=== PATIENT | female | born 1985 | race Caucasian/White ===

== ENCOUNTER 2017-11-25 22:15 | Emergency (ER) | payer OTHER ==
[2017-11-25 22:27] VITALS: BP 123/84; PULSE 83; RESP 18; TEMP 98.1
--- NOTE | 2017-11-25 22:53 | XR ---
EXAMINATION TYPE: XR ankle complete RT DATE OF EXAM: 11/25/2017 COMPARISON: NONE HISTORY: Foot and ankle pain TECHNIQUE: 3 views FINDINGS: I see no fracture nor dislocation. Ankle mortise is anatomic. Joint spaces are normal. IMPRESSION: There is a small plantar calcaneal spur. Otherwise negative right ankle exam..
--- NOTE | 2017-11-25 22:54 | XR ---
EXAMINATION TYPE: XR foot complete RT DATE OF EXAM: 11/25/2017 COMPARISON: NONE HISTORY: Foot pain TECHNIQUE: 3 views FINDINGS: I see no fracture nor dislocation. Metatarsals are intact. There are no erosions. Joint spa sonja are normal. There is a small plantar calcaneal spur. IMPRESSION: Mild calcaneal spurring. No fracture. No sign of inflammatory arthritis.
--- NOTE | 2017-11-25 23:26 | ED ---
Lower Extremity Injury HPI - General Chief Complaint: Extremity Injury, Lower Stated Complaint: Foot injury Time Seen by Provider: 11/25/17 23:11 Source: patient Mode of arrival: wheelchair Limitations: no limitations - History of Present Illness Initial Comments: 32-year-old female patient presents to the emergency department today for evaluation of right ankle pain and swelling. Patient states that she rolled it 1 she was on the treadmill yesterday. States that she was seen and evaluated at [facility] last evening, did have an x-ray and was told she had an ankle sprain no fracture. She states that today she is wearing her splint but is having significant pain with ambulation. States whenever she attempts to walk she can feel a popping in the right lateral aspect of the ankle. She denies any numbness or tingling to the foot. She denies any falls or other injuries. Patient denies any headache, neck pain, back pain, chest pain , shortness of breath, dizziness, weakness, abdominal pain, nausea, vomiting, or difficulties with bowel movements or urination. - Related Data Home Medications Medication Instructions Recorded Confirmed Ibuprofen [Motrin] 800 mg PO Q6HR PRN 05/17/15 11/25/17 Acetaminophen Tab [Tylenol Tab] 650 mg PO Q6H PRN 11/25/17 11/25/17 Clopidogrel [Plavix] 75 mg PO DAILY 11/25/17 11/25/17 Levothyroxine Sodium [Synthroid] 300 mcg PO DAILY 11/25/17 11/25/17 QUEtiapine [SEROquel] 25 mg PO HS 11/25/17 11/25/17 Ranitidine HCl [Zantac] 150 mg PO BID 11/25/17 11/25/17 Sulfamethox-Tmp 800-160Mg [Bactrim 1 tab PO BID 11/25/17 11/25/17 DS 800-160 mg] Previous Rx's Medication Instructions Recorded Acetaminophen-Codeine 300-30mg 1 tab PO Q6H PRN #6 tablet 11/25/17 [Tylenol #3] Ibuprofen [Motrin] 600 mg PO Q8HR PRN #30 tab 11/25/17 Allergies Allergy/AdvReac Type Severity Reaction Status Date / Time cortisone Allergy Unknown Verified 11/25/17 23:23 Penicillins Allergy Unknown Verified 02/23/18 23:23 Review of Systems ROS Statement: Those systems with pertinent positive or pertinent negative responses have been documented in the HPI. ROS Other: All systems not noted in ROS Statement are negative. Past Medical History Past Medical History: Hypertension, Thyroid Disorder Additional Past Medical History / Comment(s): depression History of Any Multi-Drug Resistant Organisms: None Reported Past Surgical History: No Surgical Hx Reported Past Psychological History: Anxiety, Depression Smoking Status: Former smoker Past Alcohol Use History: None Reported Past Drug Use History: None Reported General Exam Limitations: no limitations General appearance: alert, in no apparent distress, other (This is a well- developed, well-nourished adult female patient in no acute distress. Vital signs upon presentation are temperature 98.1F, pulse 83, respirations 18, blood pressure 123/84, pulse ox 98% on room air.) Eye exam: Present: normal appearance, PERRL, EOMI. Absent: scleral icterus, conjunctival injection, periorbital swelling Respiratory exam: Present: normal lung sounds bilaterally. Absent: respiratory distress, wheezes, rales, rhonchi, stridor Cardiovascular Exam: Present: regular rate, normal rhythm, normal heart sounds. Absent: systolic murmur, diastolic murmur, rubs, gallop, clicks Extremities exam: Present: full ROM, tenderness (Tenderness over the right lateral ankle and over the fifth metatarsal), normal capillary refill, other ( Mild soft tissue swelling surrounding the right ankle, skin is otherwise pink, warm, and dry. Cap refills less than 3 seconds.). Absent: normal inspection, pedal edema, joint swelling, calf tenderness Neurological exam: Present: alert, oriented X3, CN II-XII intact Psychiatric exam: Present: normal affect, normal mood Skin exam: Present: warm, dry, intact, normal color. Absent: rash Course Vital Signs 11/25/17 22:23 Temperature 98.1 F Pulse Rate 83 Respiratory 18 Rate Blood Pressure 123/84 O2 Sat by Pulse 98 Oximetry Medical Decision Making - Medical Decision Making 32-year-old female patient presented to the emergency department today for evaluation of right ankle pain and swelling. Physical examination did reveal mild swelling surrounding the right ankle. Patient did have full range of motion but complained of increased pain with movement. Neurovascular status was intact. Distal pulses were intact. X-rays were reviewed and were negative for any acute fractures or dislocations. I did discuss with her that she most likely has an ankle sprain. I discussed using splinting, anti-inflammatories, rest, and ice. She is instructed to have repeat x-ray performed in 7-10 days if her symptoms are persistent. She is instructed to return here immediately for any new, worsening, or concerning symptoms per she verbalizes understanding and agrees with this plan. - Radiology Data Radiology results: report reviewed, image reviewed 3 views of the right foot showed no fracture nor dislocation. Metatarsals are intact. No erosions. Joint spaces are normal. There is a small plantar calcaneal spur. Impression by Dr. Pike shows mild calcaneal spurring. No fracture. No sign of inflammatory arthritis. Three-view x-ray of the ankle shows no fracture nor dislocation. Ankle mortise is anatomic. Joint spaces are normal. There is small plantar calcaneal spur. Otherwise negative right ankle exam. Disposition Clinical Impression: Right ankle sprain Disposition: HOME SELF-CARE Condition: Good Instructions: Ankle Sprain (ED) Additional Instructions: Rest, ice, and elevate the right lower extremity. Follow-up with orthopedics if his symptoms aren't improving over the next 7-10 days. Return here immediately for any new, worsening, or concerning symptoms. Prescriptions: Acetaminophen-Codeine 300-30mg [Tylenol #3] 1 tab PO Q6H PRN #6 tablet PRN Reason: Pain Ibuprofen [Motrin] 600 mg PO Q8HR PRN #30 tab PRN Reason: Pain Referrals: Danya Araujo DO [Primary Care Provider] - 1-2 days Time of Disposition: 23:26
== END 2017-11-25 23:38 | disposition home or self-care (01) ==
LOC: EC 22:15
DX: S93.401A Sprain of unspecified ligament of right ankle, initial encounter (principal); E07.9 Disorder of thyroid, unspecified; F32.9 Major depressive disorder, single episode, unspecified; I10 Essential (primary) hypertension; Z87.891 Personal history of nicotine dependence; Z88.0 Allergy status to penicillin; Z88.8 Allergy status to other drugs, medicaments and biological substances; Z79.02 Long term (current) use of antithrombotics/antiplatelets; Z79.899 Other long term (current) drug therapy; X50.9XXA Other and unspecified overexertion or strenuous movements or postures, initial encounter; Y92.89 Other specified places as the place of occurrence of the external cause
CPT/HCPCS: 99283

== ENCOUNTER → 2018-04-27 | Outpatient (CLI) | payer OTHER ==
--- NOTE | 2018-04-27 22:55 | MR ---
EXAMINATION TYPE: MR lumbar spine wo con DATE OF EXAM: 04/27/2018 COMPARISON: MRI lumbar spine December 16, 2009 HISTORY: Low back pain per order, pain into right lower extremity for a few years per patient TECHNIQUE: Multiplanar, multisequence imaging of the lumbar spine is performed without IV contrast. FINDINGS: Sagittal images of the lumbar spine redemonstrates vertebral body heights and alignment to appear satisfactory. There is persistent disc desiccation L4-L5 and L5-S1 levels . The intervertebral discs otherwise redemonstrate normal heights and hydration. Small posterior disc herniation redemon strated at L5-S1 level on sagittal images. The conus medullaris remains normal in position and signal ending mid L1 level. The bone marrow signal intensity is within normal limits. No significant spurr ing is present. Axial images show at T12-L1, L1-L2, L2-L3, and L3-L4 levels all to remain within normal limits. Axial images at the L4-L5 level show broad disc protrusion minimally effacing anterior thecal sac, bi lateral neural foramina are patent. No significant change from prior. Mild facet arthropathy bilatera lly is redemonstrated. Axial images at L5-S1 level shows tiny central disc protrusion but spinal canal is preserved and bila teral neural foramina are patent. No significant change from prior. No suspicious retroperitoneal fin dings are seen. IMPRESSION: Mild degenerative changes lower lumbar spine without significant change from prior MRI 20 10 or significant disc herniation to account for right-sided radiculopathy type symptoms.
== END | disposition home or self-care (01) ==
LOC: RADMRIMAIN 21:02
PROVIDERS: ATTEND Psychiatry & Neurology Neurology
DX: M47.816 Spondylosis without myelopathy or radiculopathy, lumbar region (principal); Z88.0 Allergy status to penicillin; Z88.5 Allergy status to narcotic agent; Z88.8 Allergy status to other drugs, medicaments and biological substances
CPT/HCPCS: 72148

== ENCOUNTER 2018-04-28 22:52 | Inpatient (IN) | payer OTHER ==
--- NOTE | 2018-04-29 00:21 | XR ---
EXAMINATION TYPE: XR chest 2V DATE OF EXAM: 04/29/2018 COMPARISON: 10/31/2009 HISTORY: Rib pain TECHNIQUE: Frontal and lateral views of the chest are obtained. FINDINGS: There is no heart failure nor confluent pneumonic infiltrate. Costophrenic angles are haezl r. Bony thorax is intact. IMPRESSION: No active cardiopulmonary disease. No change.
[2018-04-29] MEDS ORDERED: SODIUM CHLORIDE 0.9% 1,000 ML IV STA (00:31)
[2018-04-29] MEDS ORDERED: KETOROLAC 30 MG/ML 1 ML VIAL IVP STA (00:31)
[2018-04-29 00:52] LABS: Basophils % (A) 0 %; Eosinophils # (A) 0.5 k/uL (0-0.7); Eosinophils % (A) 5 %; HCT 38.5 % (34.0-46.0); HGB 12.8 gm/dL (11.4-16.0); Lymphocytes # (A) 3.2 k/uL (1.0-4.8); Lymphocytes % (A) 31 %; MCH 28.8 pg (25.0-35.0); MCHC 33.3 g/dL (31.0-37.0); MCV 86.4 fL (80.0-100.0); Mean Platelet Volume 6.9; Monocytes # (A) 0.6 k/uL (0-1.0); Monocytes % (A) 5 %; Neutrophils # (A) 5.9 k/uL (1.3-7.7); Neutrophils % (A) 57 %; Platelet Count 262 k/uL (150-450); RBC 4.46 m/uL (3.80-5.40); RDW 12.4 % (11.5-15.5); WBC 10.3 k/uL (3.8-10.6)
--- NOTE | 2018-04-29 00:55 | ED ---
General Adult HPI - General Chief complaint: Shortness of Breath Stated complaint: SOB Time Seen by Provider: 04/28/18 23:33 Source: patient Mode of arrival: ambulatory - History of Present Illness Initial comments: 32-year-old female patient presents to the emergency department today for evaluation of bilateral lower rib pain. Patient states his been going on for the last 3 days and has been getting worse. Patient denies any injuries or increase in physical activity. Denies any shortness of breath with this but states it does hurt worse when she takes deep breaths. She denies any radiation of the pain to her back. She describes the pain as an intense aching pain. She denies any nausea, vomiting, cough, diarrhea, constipation, sweats, fever, or chills. Patient denies any history of similar symptoms. Patient has past medical history significant for CVA and cholecystectomy. Patient denies any recent rash, back pain, numbness, tingling, dizziness, weakness, hematuria, dysuria, urinary urgency, urinary frequency, headache, visual changes, or any other complaints. - Related Data Home Medications Medication Instructions Recorded Confirmed Albuterol Inhaler [Ventolin Hfa 1 puff PO RT-Q6H PRN 04/28/18 04/28/18 Inhaler] Atorvastatin [Lipitor] 10 mg PO HS 04/28/18 04/28/18 Baclofen [Lioresal] 10 mg PO BID 04/28/18 04/28/18 Gabapentin [Neurontin] 100 mg PO HS 04/28/18 04/28/18 Gabapentin [Neurontin] 300 - 600 mg PO BID 04/28/18 04/28/18 Naproxen [Naprosyn] 500 mg PO Q12HR PRN 04/28/18 04/28/18 busPIRone HCl [Buspar] 10 mg PO DAILY 04/28/18 04/28/18 Allergies Allergy/AdvReac Type Severity Reaction Status Date / Time cortisone Allergy Unknown Verified 04/28/18 23:28 hydrocortisone Allergy Rash/Hives Verified 04/28/18 23:28 Penicillins Allergy Unknown Verified 04/28/18 23:28 Review of Systems ROS Statement: Those systems with pertinent positive or pertinent negative responses have been documented in the HPI. ROS Other: All systems not noted in ROS Statement are negative. Past Medical History Past Medical History: Hyperlipidemia, Hypertension, Thyroid Disorder Additional Past Medical History / Comment(s): depression History of Any Multi-Drug Resistant Organisms: None Reported Past Surgical History: Cholecystectomy Additional Past Surgical History / Comment(s): Breast reduction Past Psychological History: Anxiety, Depression Smoking Status: Former smoker Past Alcohol Use History: Occasional Past Drug Use History: None Reported General Exam General appearance: alert, in no apparent distress, other (Physical well- developed, well-nourished adult female patient in no acute distress. Vital signs upon presentation are temperature 98.3F, pulse 66, respiration 16, blood pressure 148/92, pulse ox 100% on room air.) Eye exam: Present: normal appearance, PERRL, EOMI. Absent: scleral icterus, conjunctival injection, periorbital swelling ENT exam: Present: normal exam, normal oropharynx, mucous membranes moist Respiratory exam: Present: normal lung sounds bilaterally. Absent: respiratory distress, wheezes, rales, rhonchi, stridor Cardiovascular Exam: Present: regular rate, normal rhythm, normal heart sounds. Absent: systolic murmur, diastolic murmur, rubs, gallop, clicks GI/Abdominal exam: Present: soft, tenderness (Midepigastric tenderness), normal bowel sounds. Absent: distended, guarding, rebound, rigid Back exam: Absent: CVA tenderness (R), CVA tenderness (L) Neurological exam: Present: alert, oriented X3, CN II-XII intact Psychiatric exam: Present: normal affect, normal mood Skin exam: Present: warm, dry, intact, normal color. Absent: rash Course Vital Signs 04/28/18 23:07 Temperature 98.3 F Pulse Rate 66 Respiratory 16 Rate Blood Pressure 148/92 O2 Sat by Pulse 100 Oximetry EKG Findings - EKG Comments: EKG Findings:: EKG obtained at 2337 shows sinus bradycardia with marked sinus arrhythmia and first-degree AV block. Ventricular rate is 54, UT interval 218, QRS duration 80, QT 412, QTC 390. No evidence of ST elevation or depression. Medical Decision Making - Medical Decision Making 32-year-old female patient presented to the emergency department today for evaluation of bilateral rib pain and upper abdominal pain. Labs reviewed and did show a lipase of 2522. Patient denies alcohol use, has had cholecystectomy. No history of pancreatitis. We will admit her for GI evaluation. IV fluids and pain medication and provided. Patient will be nothing by mouth. Dr. Damon is accepting. - Lab Data Result diagrams: 04/29/18 00:40 04/29/18 00:40 Lab Results 04/29/18 04/29/18 04/29/18 Range/Units 00:40 00:40 00:40 WBC 10.3 (3.8-10.6) k/uL RBC 4.46 (3.80-5.40) m/uL Hgb 12.8 (11.4-16.0) gm/dL Hct 38.5 (34.0-46.0) % MCV 86.4 (80.0-100.0) fL MCH 28.8 (25.0-35.0) pg MCHC 33.3 (31.0-37.0) g/dL RDW 12.4 (11.5-15.5) % Plt Count 262 (150-450) k/uL Neutrophils % 57 % Lymphocytes % 31 % Monocytes % 5 % Eosinophils % 5 % Basophils % 0 % Neutrophils # 5.9 (1.3-7.7) k/uL Lymphocytes # 3.2 (1.0-4.8) k/uL Monocytes # 0.6 (0-1.0) k/uL Eosinophils # 0.5 (0-0.7) k/uL Basophils # 0.0 (0-0.2) k/uL Sodium 138 (137-145) mmol/L Potassium 3.8 (3.5-5.1) mmol/L Chloride 109 H (98-107) mmol/L Carbon Dioxide 20 L (22-30) mmol/L Anion Gap 9 mmol/L BUN 11 (7-17) mg/dL Creatinine 0.70 (0.52-1.04) mg/dL Est GFR (CKD-EPI)AfAm >90 (>60 ml/min/1.73 sqM) Est GFR (CKD-EPI)NonAf >90 (>60 ml/min/1.73 sqM) Glucose 91 (74-99) mg/dL Calcium 8.9 (8.4-10.2) mg/dL Total Bilirubin 0.2 (0.2-1.3) mg/dL AST 29 (14-36) U/L ALT 30 (9-52) U/L Alkaline Phosphatase 44 (38-126) U/L Total Creatine Kinase 141 H (30-135) U/L CK-MB (CK-2) 0.4 (0.0-2.4) ng/mL CK-MB (CK-2) Rel Index 0.3 Troponin I <0.012 (0.000-0.034) ng/mL Total Protein 5.8 L (6.3-8.2) g/dL Albumin 3.6 (3.5-5.0) g/dL Amylase 171 H (30-110) U/L Lipase 2522 H (23-300) U/L Urine Color Urine Appearance (Clear) Urine pH (5.0-8.0) Ur Specific Roann (1.001-1.035) Urine Protein (Negative) Urine Glucose (UA) (Negative) Urine Ketones (Negative) Urine Blood (Negative) Urine Nitrite (Negative) Urine Bilirubin (Negative) Urine Urobilinogen (<2.0) mg/dL Ur Leukocyte Esterase (Negative) Urine RBC (0-5) /hpf Urine WBC (0-5) /hpf Ur Squamous Epith Cells (0-4) /hpf Urine Bacteria (None) /hpf Urine Mucus (None) /hpf Urine HCG, Qual (Not Detectd) 04/29/18 04/29/18 Range/Units 00:40 00:40 WBC (3.8-10.6) k/uL RBC (3.80-5.40) m/uL Hgb (11.4-16.0) gm/dL Hct (34.0-46.0) % MCV (80.0-100.0) fL MCH (25.0-35.0) pg MCHC (31.0-37.0) g/dL RDW (11.5-15.5) % Plt Count (150-450) k/uL Neutrophils % % Lymphocytes % % Monocytes % % Eosinophils % % Basophils % % Neutrophils # (1.3-7.7) k/uL Lymphocytes # (1.0-4.8) k/uL Monocytes # (0-1.0) k/uL Eosinophils # (0-0.7) k/uL Basophils # (0-0.2) k/uL Sodium (137-145) mmol/L Potassium (3.5-5.1) mmol/L Chloride (98-107) mmol/L Carbon Dioxide (22-30) mmol/L Anion Gap mmol/L BUN (7-17) mg/dL Creatinine (0.52-1.04) mg/dL Est GFR (CKD-EPI)AfAm (>60 ml/min/1.73 sqM) Est GFR (CKD-EPI)NonAf (>60 ml/min/1.73 sqM) Glucose (74-99) mg/dL Calcium (8.4-10.2) mg/dL Total Bilirubin (0.2-1.3) mg/dL AST (14-36) U/L ALT (9-52) U/L Alkaline Phosphatase (38-126) U/L Total Creatine Kinase (30-135) U/L CK-MB (CK-2) (0.0-2.4) ng/mL CK-MB (CK-2) Rel Index Troponin I (0.000-0.034) ng/mL Total Protein (6.3-8.2) g/dL Albumin (3.5-5.0) g/dL Amylase (30-110) U/L Lipase (23-300) U/L Urine Color Yellow Urine Appearance Clear (Clear) Urine pH 7.0 (5.0-8.0) Ur Specific Roann 1.013 (1.001-1.035) Urine Protein Negative (Negative) Urine Glucose (UA) Negative (Negative) Urine Ketones Negative (Negative) Urine Blood Large H (Negative) Urine Nitrite Negative (Negative) Urine Bilirubin Negative (Negative) Urine Urobilinogen <2.0 (<2.0) mg/dL Ur Leukocyte Esterase Negative (Negative) Urine RBC 1 (0-5) /hpf Urine WBC 3 (0-5) /hpf Ur Squamous Epith Cells 5 H (0-4) /hpf Urine Bacteria Rare H (None) /hpf Urine Mucus Rare H (None) /hpf Urine HCG, Qual Not Detected (Not Detectd) - Radiology Data Radiology results: report reviewed, image reviewed Two-view x-ray of the chest is obtained. Report was reviewed in its entirety. There is no heart failure nor confluent pneumonic infiltrate. Costophrenic angles are clear. Bony thorax is intact. Impression by Dr. Rodriges shows no active cardiopulmonary disease. No change. Disposition Clinical Impression: Acute pancreatitis Disposition: ADMITTED IP TO THIS [facility] Condition: Serious Decision to Admit Reason: Admit from EC Decision Date: 04/29/18 Decision Time: 02:58
[2018-04-29 01:18] LABS: ALT 30 U/L (9-52); AST 29 U/L (14-36); Albumin 3.6 g/dL (3.5-5.0); Alkaline Phosphatase 44 U/L (38-126); Amylase 171 U/L (30-110); Anion Gap 9 mmol/L; Blood Urea Nitrogen 11 mg/dL (7-17); Calcium 8.9 mg/dL (8.4-10.2); Carbon Dioxide 20 mmol/L (22-30); Chloride 109 mmol/L (98-107); Glucose 91 mg/dL (74-99); Potassium 3.8 mmol/L (3.5-5.1); Sodium 138 mmol/L (137-145); Total Bilirubin 0.2 mg/dL (0.2-1.3); Total Protein 5.8 g/dL (6.3-8.2)
[2018-04-29 01:22] LABS: Appearance,Urine Clear (Clear); Bacteria,Urine Rare /hpf; Bilirubin,Urine Negative (Negative); Blood,Urine Large (Negative); Color,Urine Yellow; Creatine Kinase 141 U/L (30-135); Glucose,Urine (UA) Negative (Negative); Ketones,Urine Negative (Negative); Leukocyte Esterase,Urine Negative (Negative); Mucus,Urine Rare /hpf; Nitrite,Urine Negative (Negative); Protein,Urine Negative (Negative); RBC,Urine 1 /hpf (0-5); Specific Gravity,Urine 1.013 (1.001-1.035); Squamous Epithelial Cell,Urine 5 /hpf (0-4); Urobilinogen,Urine <2.0 mg/dL (<2.0); WBC,Urine 3 /hpf (0-5)
[2018-04-29 01:25] LABS: Lipase 2522 U/L (23-300)
[2018-04-29 01:34] LABS: Creatine Kinase MB 0.4 ng/mL (0.0-2.4); Troponin I <0.012 ng/mL (0.000-0.034)
[2018-04-29] MEDS ORDERED: NALOXONE 0.4 MG/ML 1 ML VIAL IV PRN (02:55)
[2018-04-29] MEDS ORDERED: LORazepam 2 MG/ML INJ IV STA (02:57)
[2018-04-29] MEDS: SODIUM CHLORIDE 0.9% 1,000 ML IV SCH ×3 (03:22→20:01)
[2018-04-29] MEDS: MORPHINE SULFATE 4 MG/ML SYRINGE IV PRN ×3 (03:59→18:31)
[2018-04-29] MEDS ORDERED: NAPROXEN 250 MG TAB PO PRN (07:28)
[2018-04-29] MEDS: GABAPENTIN 300 MG CAP PO SCH (09:33)
[2018-04-29] MEDS: busPIRone HCl 10 MG TAB PO SCH (09:34)
[2018-04-29] MEDS: BACLOFEN 10 MG TAB PO SCH ×2 (09:34→19:53)
[2018-04-29] MEDS: ONDANSETRON 4 MG/2 ML VIAL IVP PRN ×2 (11:28→18:35)
[2018-04-29] MEDS: ALBUTEROL NEBULIZED 2.5 MG/3 ML INHALATION PRN (14:10)
--- NOTE | 2018-04-29 15:13 | P.HPIM ---
History of Present Illness H&P Date: 04/29/18 Chief Complaint: Abdominal pain and nausea Patient is a 32-year-old female who presented to [facility] emergency room with a chief complaint of abdominal pain nausea and vomiting states her symptoms started 2 days prior to presentation and has been worsening she was evaluated in emergency room and had significantly elevated lipase level of 2500 amylase was also slightly elevated she was diagnosed was acute pancreatitis she was started on IV fluid she was kept nothing by mouth and was admitted to medical floor gastroenterology consultation was requested. Patient stated that she had cholecystectomy in 2008 she denies having any history of pancreatitis she states she has elevated cholesterol and was placed on Lipitor she does not know what her triglyceride level is. On review of systems patient denies any fever or chills no headaches no dizziness no chest pain or shortness of breath no cough no burning was urination no frequency or urgency no hematuria no diarrhea no blood in the stools Past Medical History Past Medical History: Hyperlipidemia, Hypertension, Thyroid Disorder Additional Past Medical History / Comment(s): depression History of Any Multi-Drug Resistant Organisms: None Reported Past Surgical History: Cholecystectomy Additional Past Surgical History / Comment(s): Breast reduction Past Psychological History: Anxiety, Depression Smoking Status: Former smoker Past Alcohol Use History: Occasional Past Drug Use History: None Reported Medications and Allergies Home Medications Medication Instructions Recorded Confirmed Type Albuterol Inhaler [Ventolin Hfa 1 puff PO RT-Q6H PRN 04/28/18 04/28/18 History Inhaler] Atorvastatin [Lipitor] 10 mg PO HS 04/28/18 04/28/18 History Baclofen [Lioresal] 10 mg PO BID 04/28/18 04/28/18 History Gabapentin [Neurontin] 100 mg PO HS 04/28/18 04/28/18 History Gabapentin [Neurontin] 300 - 600 mg PO BID 04/28/18 04/28/18 History Naproxen [Naprosyn] 500 mg PO Q12HR PRN 04/28/18 04/28/18 History busPIRone HCl [Buspar] 10 mg PO DAILY 04/28/18 04/28/18 History Allergies Allergy/AdvReac Type Severity Reaction Status Date / Time cortisone Allergy Unknown Verified 04/28/18 23:28 hydrocortisone Allergy Rash/Hives Verified 04/28/18 23:28 Penicillins Allergy Unknown Verified 04/28/18 23:28 Physical Exam Vitals: Vital Signs Temp Pulse Pulse Resp BP BP Pulse Ox 04/29/18 14:23 97.5 F L 68 64 20 98/59 97 04/29/18 14:12 66 04/29/18 07:19 98.0 F 64 19 101/63 96 04/29/18 04:24 97.0 F L 72 18 112/66 97 04/29/18 04:18 97.1 F L 74 18 115/75 99 04/28/18 23:07 98.3 F 66 16 148/92 100 Intake and Output 04/29/18 04/29/18 04/29/18 06:59 14:59 22:59 Intake Total 500 Balance 500 Intake: Intake, IV Titration 500 Amount Sodium Chloride 0.9% 1, 500 000 ml @ 125 mls/hr IV . Q8H [facility] Rx#:[id number] Other: Voiding Method Toilet # Voids 1 2 Weight 128.367 kg 128.367 kg Head normocephalic and atraumatic Neck supple no JVD no goiter Lungs clear to auscultation bilaterally no wheezing or crackles Heart regular rate and rhythm S1-S2, no rub or gallop Abdomen is soft nontender nondistended positive bowel sounds no hepatosplenomegaly Extremities no edema no cyanosis or clubbing Neuro alert and orientated to 3 no gross focal deficit Results CBC & Chem 7: 04/29/18 00:40 04/29/18 00:40 Labs: Abnormal Lab Results - Last 24 Hours (Table) 04/29/18 04/29/18 04/29/18 Range/Units 00:40 00:40 00:40 Chloride 109 H (98-107) mmol/L Carbon Dioxide 20 L (22-30) mmol/L Total Creatine Kinase 141 H (30-135) U/L Total Protein 5.8 L (6.3-8.2) g/dL Amylase 171 H (30-110) U/L Lipase 2522 H (23-300) U/L Urine Blood Large H (Negative) Ur Squamous Epith Cells 5 H (0-4) /hpf Urine Bacteria Rare H (None) /hpf Urine Mucus Rare H (None) /hpf Thrombosis Risk Factor Assmnt - Choose All That Apply Any of the Below Risk Factors Present?: Yes Each Factor Represents 1 point: Obesity (BMI >25) Each Risk Factor Represents 3 Points: History of DVT/PE Thrombosis Risk Factor Assessment Total Risk Factor Score: 4 Thrombosis Risk Factor Assessment Level: Moderate Risk Assessment and Plan Plan: 1. Acute pancreatitis. His elevated amylase lipase, nausea vomiting and abdominal pain 2. Previous history of cholecystectomy in 2008 3. underlying history of Hyperlipidemia will check lipid profile 4. Underlying history of asthma maintained on albuterol inhaler At this time will keep patient nothing by mouth, continue with IV fluids continue symptomatic management of abdominal pain and nausea Gastroenterology consult requested, will follow closely
--- NOTE | 2018-04-29 17:26 | CONS ---
CONSULTATION DATE OF SERVICE: April 29, 2018. REQUESTING PHYSICIAN: Dr. Danya Araujo. REASON FOR CONSULTATION: Acute pancreatitis. HISTORY OF PRESENT ILLNESS: The patient is a 32-year-old pleasant white female came to the emergency room with epigastric and right upper quadrant abdominal pain on and off for the last 3 days duration. The pain has been progressively getting worse since coming to the emergency room and was noted to have elevated amylase and lipase consistent with acute pancreatitis and hence we are consulted. She had some nausea vomiting 2 days ago, but today she is feeling better. Abdominal pain has significantly improved. She received morphine for pain control and she is doing much better today. She never had these symptoms in the past. No history of recent NSAID use. No prior history of peptic ulcer disease. She denies any alcohol use. She is status post gallbladder surgery many years ago for symptomatic gallstones. This morning she is feeling much better. PAST MEDICAL HISTORY: Significant for hypertension, hyperlipidemia, hypothyroidism. PAST SURGICAL HISTORY: Cholecystectomy, anxiety, depression. SOCIAL HISTORY: Former smoker. No alcohol use. FAMILY HISTORY: Unremarkable. MEDICATIONS: At home include BuSpar, Neurontin, albuterol, Lioresal, Lipitor. ALLERGIES: TO CODEINE, PENICILLIN, HYDROCORTISONE. REVIEW OF SYSTEMS: Cardiopulmonary: No chest pain, shortness of breath. Genitourinary: No dysuria or hematuria. Musculoskeletal: Unremarkable. Skin: Unremarkable. Endocrine: Unremarkable. Psychiatric unremarkable. Neurology unremarkable. ENT vision unremarkable. Constitutional: No recent weight loss. No fevers, chills, night sweats. EXAMINATION: She appears comfortable in no apparent distress. Vital signs stable. Blood pressure is 112/82, pulse rate 80 per minute and afebrile. HEENT examination unremarkable. Conjunctivae pink. Sclerae anicteric. Oral cavity no lesions. Neck: No jugular venous distention or lymph node enlargement. The chest was clear to auscultation. HEART: Regular rate and rhythm. Abdomen is epigastric area. Bowel sounds are positive. No organomegaly. Extremities: No pedal edema. Skin no rashes. NEUROLOGIC: Alert and oriented x3. No focal deficits. LABS: From yesterday: Amylase is 171, lipase is 2522. ALT, AST are normal. T-bilirubin and alkaline phosphatase are normal. CBC with differential showed WBC of 10.9, hemoglobin 12.8, and platelets are normal. IMPRESSION: This is a patient presents to the hospital with upper abdominal pain for the last duration, noted to have elevated amylase and lipase consistent with acute pancreatitis. She is feeling much better today. She was having symptoms for the last 3 days duration. Never had acute pancreatitis in the past. No history of alcohol use multiple years ago for gallstones. Currently, her serum transaminases are within normal limits with a biliary pancreatitis. recently. Etiology of pancreatitis remains unclear. needs to be investigated. RECOMMENDATIONS: 1. Will obtain for fasting serum triglycerides. 2. Start on clear liquid diet and advance as tolerated. 3. Repeat labs in the morning and if stable, she can be discharged home with an outpatient follow up . Thank you for this consultation. MMSMITHAL / IJN: [id number] /
[2018-04-29] MEDS: ATORVASTATIN 10 MG TAB PO SCH (19:52)
[2018-04-29] MEDS: GABAPENTIN 100 MG CAP PO SCH (19:53)
[2018-04-30] MEDS: ONDANSETRON 4 MG/2 ML VIAL IVP PRN ×3 (03:00→19:43)
[2018-04-30] MEDS: MORPHINE SULFATE 4 MG/ML SYRINGE IV PRN ×3 (03:00→19:39)
[2018-04-30] MEDS: SODIUM CHLORIDE 0.9% 1,000 ML IV SCH ×3 (03:04→19:33)
[2018-04-30] MEDS: ALBUTEROL NEBULIZED 2.5 MG/3 ML INHALATION PRN ×3 (08:01→20:05)
[2018-04-30] MEDS: GABAPENTIN 300 MG CAP PO SCH (08:13)
[2018-04-30] MEDS: BACLOFEN 10 MG TAB PO SCH ×2 (08:13→19:33)
[2018-04-30] MEDS: busPIRone HCl 10 MG TAB PO SCH (08:13)
[2018-04-30 10:37] LABS: Basophils % (A) 0 %; Eosinophils # (A) 0.2 k/uL (0-0.7); Eosinophils % (A) 3 %; HGB 12.5 gm/dL (11.4-16.0); Lymphocytes # (A) 1.8 k/uL (1.0-4.8); Lymphocytes % (A) 24 %; MCH 28.1 pg (25.0-35.0); MCV 87.9 fL (80.0-100.0); Mean Platelet Volume 6.9; Monocytes # (A) 0.4 k/uL (0-1.0); Monocytes % (A) 5 %; Neutrophils % (A) 66 %; Platelet Count 246 k/uL (150-450); RBC 4.44 m/uL (3.80-5.40); RDW 12.4 % (11.5-15.5); WBC 7.6 k/uL (3.8-10.6)
[2018-04-30 10:51] LABS: ALT 31 U/L (9-52); AST 19 U/L (14-36); Albumin 3.4 g/dL (3.5-5.0); Alkaline Phosphatase 46 U/L (38-126); Amylase 70 U/L (30-110); Anion Gap 5 mmol/L; Blood Urea Nitrogen 6 mg/dL (7-17); Calcium 8.5 mg/dL (8.4-10.2); Carbon Dioxide 23 mmol/L (22-30); Chloride 111 mmol/L (98-107); Cholesterol 127 mg/dL (<200); Glucose 79 mg/dL (74-99); HDL Cholesterol 27 mg/dL (40-60); LDL Cholesterol,Calculated 78 mg/dL (0-99); Lipase 692 U/L (23-300); Potassium 4.5 mmol/L (3.5-5.1); Sodium 139 mmol/L (137-145); Total Bilirubin 0.3 mg/dL (0.2-1.3); Total Protein 5.6 g/dL (6.3-8.2); Triglycerides 109 mg/dL (<150)
--- NOTE | 2018-04-30 15:58 | P.PN ---
Subjective Progress Note Date: 04/30/18 Patient is a 32-year-old female who presented to [facility] emergency room with a chief complaint of abdominal pain nausea and vomiting states her symptoms started 2 days prior to presentation and has been worsening she was evaluated in emergency room and had significantly elevated lipase level of 2500 amylase was also slightly elevated she was diagnosed was acute pancreatitis she was started on IV fluid she was kept nothing by mouth and was admitted to medical floor gastroenterology consultation was requested. Patient stated that she had cholecystectomy in 2008 she denies having any history of pancreatitis she states she has elevated cholesterol and was placed on Lipitor she does not know what her triglyceride level is. On 04/30/2018 patient is alert and oriented 3 she reports improvement in her abdominal pain that hasn't been any nausea or vomiting today she is maintained on IV fluid. She denies any chest pain or shortness of breath no fever or chills she is complaining of some headache no cough no diarrhea and no urinary symptoms, Objective - Vital Signs Vital signs: Vital Signs Temp 98.6 F 04/30/18 13:51 Pulse 57 L 04/30/18 13:51 Resp 16 04/30/18 13:51 BP 98/59 04/30/18 13:51 Pulse Ox 97 04/30/18 13:51 Intake & Output 04/29/18 04/30/18 04/30/18 18:59 06:59 18:59 Intake Total 500 Balance 500 Weight 128.367 kg Intake: Intake, IV Titration 500 Amount Sodium Chloride 0.9% 1, 500 000 ml @ 125 mls/hr IV . [facility] Rx#:[id number] Other: Voiding Method Toilet Toilet Toilet # Voids 2 1 1 - Exam Head normocephalic and atraumatic Neck supple no JVD no goiter Lungs clear to auscultation bilaterally no wheezing or crackles Heart regular rate and rhythm S1-S2, no rub or gallop Abdomen is soft nontender nondistended positive bowel sounds no hepatosplenomegaly Extremities no edema no cyanosis or clubbing Neuro alert and orientated to 3 no gross focal deficit - Labs CBC & Chem 7: 04/30/18 10:12 04/30/18 10:12 Labs: Abnormal Lab Results - Last 24 Hours (Table) 04/30/18 Range/Units 10:12 Chloride 111 H (98-107) mmol/L BUN 6 L (7-17) mg/dL Total Protein 5.6 L (6.3-8.2) g/dL Albumin 3.4 L (3.5-5.0) g/dL HDL Cholesterol 27 L (40-60) mg/dL Lipase 692 H (23-300) U/L Assessment and Plan Plan: 1. Acute pancreatitis. His elevated amylase lipase, nausea vomiting and abdominal pain 2. Previous history of cholecystectomy in 2008 3. underlying history of Hyperlipidemia will check lipid profile 4. Underlying history of asthma maintained on albuterol inhaler At this time will keep patient nothing by mouth, continue with IV fluids continue symptomatic management of abdominal pain and nausea Gastroenterology consult requested, will follow closely
--- NOTE | 2018-04-30 18:51 | PN ---
PROGRESS NOTE DATE OF SERVICE: April 30, 2018 Patient is a 32-year-old pleasant white female admitted to hospital with acute pancreatitis. She presented with upper abdominal pain associated with nausea, vomiting, which is gradually improving. She has some vague discomfort in the right upper quadrant area. No fever or chills. PHYSICAL EXAMINATION: She appears comfortable in no apparent distress. VITAL SIGNS: Stable. Blood pressure is 98/59, pulse rate 57, temperature 98.6. HEENT examination unremarkable. Conjunctivae pink. Sclerae anicteric. Oral cavity no lesions. Neck no jugular venous distention or lymph node enlargement. Chest was clear to auscultation. HEART: Regular rate and rhythm. ABDOMEN: Soft, bowel sounds are positive. No organomegaly. Extremities: No pedal edema. Skin no rashes. NEUROLOGIC: Alert and oriented times three. No focal deficits. LAB DATA: Amylase is 70, lipase is 692. ALT, AST are within normal limits. T-bilirubin and alkaline phosphatase are normal. CBC is within normal limits. IMPRESSION: Acute pancreatitis with a history of alcohol use and is status post gallbladder surgery many years ago first episode. Her symptoms are gradually improving. Etiology of the pancreatitis remains unclear. Workup is still pending. RECOMMENDATION: 1. Start on a clear liquid diet. 2. Repeat labs in the morning. 3. If her labs are improving, she can be discharged home with an outpatient follow up in the office in 2-4 weeks at which time, further workup will be considered. Thank you for this consultation. MMSMITHAL / IJN: [id number] /
[2018-04-30] MEDS: ATORVASTATIN 10 MG TAB PO SCH (19:33)
[2018-04-30] MEDS: GABAPENTIN 100 MG CAP PO SCH (19:33)
[2018-05-01] MEDS: SODIUM CHLORIDE 0.9% 1,000 ML IV SCH ×3 (02:48→20:22)
[2018-05-01] MEDS: ONDANSETRON 4 MG/2 ML VIAL IVP PRN (07:56)
[2018-05-01] MEDS: MORPHINE SULFATE 4 MG/ML SYRINGE IV PRN (07:56)
[2018-05-01] MEDS: ALBUTEROL NEBULIZED 2.5 MG/3 ML INHALATION PRN ×2 (08:24→13:22)
[2018-05-01] MEDS: busPIRone HCl 10 MG TAB PO SCH (09:53)
[2018-05-01] MEDS: GABAPENTIN 300 MG CAP PO SCH (09:53)
[2018-05-01] MEDS: BACLOFEN 10 MG TAB PO SCH ×2 (09:53→20:22)
[2018-05-01 10:03] LABS: ALT 32 U/L (9-52); AST 30 U/L (14-36); Alkaline Phosphatase 41 U/L (38-126); Anion Gap 8 mmol/L; Blood Urea Nitrogen 6 mg/dL (7-17); Calcium 8.8 mg/dL (8.4-10.2); Carbon Dioxide 22 mmol/L (22-30); Chloride 110 mmol/L (98-107); Glucose 91 mg/dL (74-99); Lipase 432 U/L (23-300); Sodium 140 mmol/L (137-145); Total Bilirubin 0.6 mg/dL (0.2-1.3); Total Protein 6.4 g/dL (6.3-8.2)
[2018-05-01 10:06] LABS: Basophils % (A) 0 %; Eosinophils # (A) 0.2 k/uL (0-0.7); Eosinophils % (A) 2 %; HCT 41.6 % (34.0-46.0); HGB 13.1 gm/dL (11.4-16.0); Lymphocytes # (A) 2.1 k/uL (1.0-4.8); Lymphocytes % (A) 30 %; MCH 27.9 pg (25.0-35.0); MCHC 31.6 g/dL (31.0-37.0); MCV 88.3 fL (80.0-100.0); Mean Platelet Volume 6.9; Monocytes # (A) 0.4 k/uL (0-1.0); Monocytes % (A) 5 %; Neutrophils # (A) 4.2 k/uL (1.3-7.7); Neutrophils % (A) 60 %; Platelet Count 239 k/uL (150-450); RBC 4.71 m/uL (3.80-5.40); RDW 12.4 % (11.5-15.5)
[2018-05-01 10:18] LABS: Potassium 4.1 mmol/L (3.5-5.1)
[2018-05-01] MEDS ORDERED: ONDANSETRON 4 MG/2 ML VIAL IVP PRN (14:21)
--- NOTE | 2018-05-01 14:40 | P.PN ---
Subjective Progress Note Date: 05/01/18 Patient is a 32-year-old female who presented to [facility] emergency room with a chief complaint of abdominal pain nausea and vomiting states her symptoms started 2 days prior to presentation and has been worsening she was evaluated in emergency room and had significantly elevated lipase level of 2500 amylase was also slightly elevated she was diagnosed was acute pancreatitis she was started on IV fluid she was kept nothing by mouth and was admitted to medical floor gastroenterology consultation was requested. Patient stated that she had cholecystectomy in 2008 she denies having any history of pancreatitis she states she has elevated cholesterol and was placed on Lipitor she does not know what her triglyceride level is. On 04/30/2018 patient is alert and oriented 3 she reports improvement in her abdominal pain that hasn't been any nausea or vomiting today she is maintained on IV fluid. She denies any chest pain or shortness of breath no fever or chills she is complaining of some headache no cough no diarrhea and no urinary symptoms, On 05/01/2018 patient is currently resting comfortably in bed stating improvement with her abdominal pain. Denies any nausea or vomiting. Patient denies chest pain or shortness of breath. Objective - Vital Signs Vital signs: Vital Signs Temp 97.2 F L 05/01/18 06:58 Pulse 84 05/01/18 13:32 Resp 16 05/01/18 06:58 BP 126/66 05/01/18 06:58 Pulse Ox 98 05/01/18 06:58 Intake & Output 04/30/18 05/01/18 05/01/18 18:59 06:59 18:59 Intake Total 198 Balance 198 Intake: Oral 198 Other: Voiding Method Toilet Toilet # Voids 1 3 - Exam Head normocephalic and atraumatic Neck supple no JVD no goiter Lungs clear to auscultation bilaterally no wheezing or crackles Heart regular rate and rhythm S1-S2, no rub or gallop Abdomen is soft nontender nondistended positive bowel sounds no hepatosplenomegaly Extremities no edema no cyanosis or clubbing Neuro alert and orientated to 3 no gross focal deficit - Labs CBC & Chem 7: 05/01/18 09:38 05/01/18 09:38 Labs: Abnormal Lab Results - Last 24 Hours (Table) 05/01/18 Range/Units 09:38 Chloride 110 H (98-107) mmol/L BUN 6 L (7-17) mg/dL Lipase 432 H (23-300) U/L Assessment and Plan Assessment: 1. Acute pancreatitis. His elevated amylase lipase, nausea vomiting and abdominal pain. GI services following patient currently on clear liquid diet. Patient's diet will be advanced tonight to regular diet for Dr. Sotomayor. She remains on IV fluid at 125 and Protonix. Lipase improving at 432. 2. Previous history of cholecystectomy in 2008 3. underlying history of Hyperlipidemia will check lipid profile. Total cholesterol 127 4. Underlying history of asthma maintained on albuterol inhaler 5. History of anxiety and depression. Continue BuSpar At this time will keep patient nothing by mouth, continue with IV fluids continue symptomatic management of abdominal pain and nausea We'll continue to monitor labs closely. Possible discharge tomorrow DVT prophylaxis Lovenox. GI prophylaxis Protonix. I performed an examination of the patient and discussed their management with the Nurse Practitioner. I have reviewed the Nurse Practitioner's notes and agree with the documented findings and plan of care Time with Patient: Greater than 30 (Greater than 60% of the total time spent in counseling and coordination of care.I performed an examination of the patient and discussed their management with the Nurse Practitioner. I have reviewed the Nurse Practitioner's notes and agree with the documented findings and plan of care)
[2018-05-01] MEDS: PANTOPRAZOLE 40 MG/10 ML VIAL IVP SCH (14:49)
--- NOTE | 2018-05-01 19:49 | PN ---
PROGRESS NOTE DATE OF SERVICE: 05/01/2018 The patient is a 32 -year-old pleasant white female admitted to hospital with acute pancreatitis, this being the 4th episode. She is doing well today. Abdominal pain has resolved. No nausea, vomiting. Clear liquid diet that was started yesterday, tolerating well. PHYSICAL EXAMINATION: Appears comfortable in no apparent distress. VITAL SIGNS: Stable. Blood pressure is 115/65, pulse rate 67, temperature 98.4. HEENT examination unremarkable. Conjunctivae pink. Sclerae anicteric. Oral cavity no lesions. Neck no jugular venous distention or lymph node enlargement. The chest was clear to auscultation. abdomen soft. Bowel sounds are positive. No organomegaly. Extremities: No pedal edema. Skin no rashes. Neuro: She is alert and oriented times three. No focal deficits. LABS: From today, basic metabolic panel is within normal limits. Lipase is 450, amylase was not done. IMPRESSION: Acute pancreatitis, 1st episode, resolving nicely. She has no abdominal symptoms today, on a clear liquid diet tolerating well. RECOMMENDATIONS: 1. Advance diet as tolerated. 2. She can be discharged home tomorrow. 3. Outpatient follow up in 2 weeks for further workup of acute pancreatitis. MMODL / IJN: [id number] /
[2018-05-01] MEDS: GABAPENTIN 100 MG CAP PO SCH (20:22)
[2018-05-01] MEDS: ATORVASTATIN 10 MG TAB PO SCH (20:22)
[2018-05-02 01:27] VITALS: RESP 18
[2018-05-02] MEDS: MORPHINE SULFATE 4 MG/ML SYRINGE IV PRN (02:50)
[2018-05-02] MEDS: SODIUM CHLORIDE 0.9% 1,000 ML IV SCH (04:01)
[2018-05-02 07:11] VITALS: BP 135/63; TEMP 98.7
[2018-05-02] MEDS: ALBUTEROL NEBULIZED 2.5 MG/3 ML INHALATION PRN (07:44)
[2018-05-02 07:55] VITALS: PULSE 68
[2018-05-02] MEDS: busPIRone HCl 10 MG TAB PO SCH (08:01)
[2018-05-02] MEDS: GABAPENTIN 300 MG CAP PO SCH (08:01)
[2018-05-02] MEDS: BACLOFEN 10 MG TAB PO SCH (08:01)
[2018-05-02] MEDS: PANTOPRAZOLE 40 MG/10 ML VIAL IVP SCH (08:01)
[2018-05-02] MEDS ORDERED: ENOXAPARIN 40 MG/0.4 ML SYRINGE SQ SCH (09:00)
[2018-05-02 09:21] LABS: Amylase 57 U/L (30-110); Lipase 357 U/L (23-300)
--- NOTE | 2018-05-02 10:00 | P.DS ---
Providers Date of admission: 04/29/18 02:43 Expected date of discharge: 05/02/18 Attending physician: Amarilys Damon Primary care physician: Danya Araujo [facility] Course: Discharge diagnosis 1. Acute pancreatitis. elevated amylase lipase, nausea vomiting and abdominal pain. GI services following patient currently on clear liquid diet. Patient's diet will be advanced tonight to regular diet per Dr. Sotomayor. She remains on IV fluid at 125 and Protonix. Lipase improving at 432. Patient has been tolerating a regular diet. Patient has been cleared for discharge from Dr. Garcia and GI services. Will follow up in 2 weeks for acute pancreatitis. Lipase level continuing to improve at 357. 2. Previous history of cholecystectomy in 2008 3. underlying history of Hyperlipidemia will check lipid profile. Total cholesterol 127 4. Underlying history of asthma maintained on albuterol inhaler 5. History of anxiety and depression. Continue [facility] course Patient is a 32-year-old female who presented to [facility] emergency room with a chief complaint of abdominal pain nausea and vomiting states her symptoms started 2 days prior to presentation and has been worsening she was evaluated in emergency room and had significantly elevated lipase level of 2500 amylase was also slightly elevated she was diagnosed was acute pancreatitis she was started on IV fluid she was kept nothing by mouth and was admitted to medical floor gastroenterology consultation was requested. Patient stated that she had cholecystectomy in 2008 she denies having any history of pancreatitis she states she has elevated cholesterol and was placed on Lipitor she does not know what her triglyceride level is. On 04/30/2018 patient is alert and oriented 3 she reports improvement in her abdominal pain that hasn't been any nausea or vomiting today she is maintained on IV fluid. She denies any chest pain or shortness of breath no fever or chills she is complaining of some headache no cough no diarrhea and no urinary symptoms, On 05/01/2018 patient is currently resting comfortably in bed stating improvement with her abdominal pain. Denies any nausea or vomiting. Patient denies chest pain or shortness of breath. On 05/02/2018 patient is currently resting comfortably in bed stating that she feels much improved. Patient says she's been tolerating regular diet. Patient denies chest pain or shortness of breath. Patient has been cleared for discharge from Dr. Garcia per GI services will follow up outpatient in 2 weeks for further workup of acute pancreatitis. Patient to follow up closely with primary care provider Dr. Araujo. I performed an examination of the patient and discussed their management with the Nurse Practitioner. I have reviewed the Nurse Practitioner's notes and agree with the documented findings and plan of care Patient Condition at Discharge: Stable Plan - Discharge Summary Discharge Rx Participant: Yes New Discharge Prescriptions: Continue busPIRone HCl [Buspar] 10 mg PO DAILY Naproxen [Naprosyn] 500 mg PO Q12HR PRN PRN Reason: Pain Gabapentin [Neurontin] 300 - 600 mg PO BID Gabapentin [Neurontin] 100 mg PO HS Baclofen [Lioresal] 10 mg PO BID Atorvastatin [Lipitor] 10 mg PO HS Albuterol Inhaler [Ventolin Hfa Inhaler] 1 puff PO RT-Q6H PRN PRN Reason: Shortness Of Breath Discharge Medication List Albuterol Inhaler [Ventolin Hfa Inhaler] 1 puff PO RT-Q6H PRN 04/28/18 [History] Atorvastatin [Lipitor] 10 mg PO HS 04/28/18 [History] Baclofen [Lioresal] 10 mg PO BID 04/28/18 [History] Gabapentin [Neurontin] 100 mg PO HS 04/28/18 [History] Gabapentin [Neurontin] 300 - 600 mg PO BID 04/28/18 [History] Naproxen [Naprosyn] 500 mg PO Q12HR PRN 04/28/18 [History] busPIRone HCl [Buspar] 10 mg PO DAILY 04/28/18 [History] Follow up Appointment(s)/Referral(s): Angelic Sotomayor MD [STAFF PHYSICIAN] - 2 Weeks Danya Araujo DO [Primary Care Provider] - 1-2 days Patient Instructions/Handouts: Pancreatitis (DC) Activity/Diet/Wound Care/Special Instructions: Diet regular Activity as tolerated Discharge Disposition: HOME SELF-CARE
== END 2018-05-02 13:19 | disposition home or self-care (01) | DRG 642 ==
LOC: SUPCPDRO 22:52 → EC 22:52 → 4MS4W 04-29 02:43
PROVIDERS: ADMIT Internal Medicine; ATTEND Internal Medicine
DX: E78.5 Hyperlipidemia, unspecified (principal); K85.90 Acute pancreatitis without necrosis or infection, unspecified; I44.0 Atrioventricular block, first degree; I10 Essential (primary) hypertension; J45.909 Unspecified asthma, uncomplicated; E03.9 Hypothyroidism, unspecified; Z79.1 Long term (current) use of non-steroidal anti-inflammatories (NSAID); Z79.899 Other long term (current) drug therapy; Z87.891 Personal history of nicotine dependence; Z86.59 Personal history of other mental and behavioral disorders; Z90.49 Acquired absence of other specified parts of digestive tract; Z86.73 Personal history of transient ischemic attack (TIA), and cerebral infarction without residual deficits; Z88.0 Allergy status to penicillin; Z88.8 Allergy status to other drugs, medicaments and biological substances
CPT/HCPCS: 36415; 71046; 80053; 80061; 81001; 81025; 82150; 82550; 82553; 83690; 84484; 85025; 93005; 94640; 96361; 96374; 96375; 99285

== ENCOUNTER → 2018-08-01 | Outpatient (CLI) | payer OTHER ==
--- NOTE | 2018-08-01 10:46 | MR ---
EXAMINATION TYPE: MR brain/orbits wo/w con DATE OF EXAM: 08/01/2018 COMPARISON: None HISTORY: Cranial nerve disorder, loss sight rt eye TECHNIQUE: Multiplanar, multisequence images of the brain and brainstem is performed without and with IV contras t, utilizing 12.5 mL intravenous Gadavist . FINDINGS: Diffusion weighted images demonstrate no evidence of a recent infarct or other diffusion ab normality. There is no extra-axial fluid collection or significant white matter signal abnormality. The ventricular system and cisternal spaces are normal in size and appearance. The brain volume is age appropriate. There is a partially empty sella with some infundibulum deviation towards the left on the coronal maurizio ges. Within the sphenoid bone, there is a low signal focus on T1-weighted images, increased signal on T2 with peripheral enhancement and central low signal following contrast administration, lesion vivi ures approximately 13 mm x 15 mm x 8 mm. The craniocervical junction appears within normal limits. P ost contrast images demonstrate no abnormal enhancement. The dural venous sinuses appear patent. The visualized sinuses are remarkable for inflammatory change in the ethmoid air cells and sphenoid sinus and the globes are intact. Mild inflammatory change present in the temporal bone on the left. IMPRESSION: No evident orbital mass. Brain signal is normal. Lesion within the clivus shows a nonaggr essive appearance, may due to benign notochordal remnant, infection not excluded, consider follow up.
== END | disposition home or self-care (01) ==
LOC: RADMRIMAIN 08:01
PROVIDERS: ATTEND Ophthalmology
DX: M89.8X8 Other specified disorders of bone, other site (principal); H53.139 Sudden visual loss, unspecified eye; G52.9 Cranial nerve disorder, unspecified; G43.009 Migraine without aura, not intractable, without status migrainosus
CPT/HCPCS: 70543; 70553; A9585

== ENCOUNTER → 2018-08-07 | Outpatient (CLI) | payer OTHER ==
[2018-08-07 15:09] LABS: Basophils # (A) 0.1 k/uL (0-0.2); Basophils % (A) 1 %; Eosinophils # (A) 0.3 k/uL (0-0.7); Eosinophils % (A) 3 %; HCT 43.5 % (34.0-46.0); HGB 14.2 gm/dL (11.4-16.0); Lymphocytes # (A) 3.5 k/uL (1.0-4.8); Lymphocytes % (A) 38 %; MCH 28.9 pg (25.0-35.0); MCHC 32.7 g/dL (31.0-37.0); MCV 88.1 fL (80.0-100.0); Mean Platelet Volume 6.4; Monocytes # (A) 0.6 k/uL (0-1.0); Monocytes % (A) 6 %; Neutrophils # (A) 4.8 k/uL (1.3-7.7); Neutrophils % (A) 51 %; Platelet Count 317 k/uL (150-450); RBC 4.94 m/uL (3.80-5.40); RDW 12.7 % (11.5-15.5); WBC 9.4 k/uL (3.8-10.6)
[2018-08-07 16:05] LABS: Erythrocyte Sedimentation Rate 5 mm/hr (0-20)
[2018-08-07 21:17] LABS: Albumin 4.6 g/dL (3.80-4.90); Albumin/Globulin Ratio 2.42 (1.20-2.10); Calcium 9.2 mg/dL (8.7-10.3); Globulin 1.9 g/dL (2.1-3.7); Potassium 4.4 mmol/L (3.5-5.5); Total Bilirubin 0.3 mg/dL (0.2-1.2); Total Protein 6.5 g/dL (6.2-8.2)
[2018-08-07 21:25] LABS: T4, Free (Free Thyroxine) 1.2 ng/dL (0.80-1.80)
== END ==
LOC: LABWHC1 14:40
PROVIDERS: ATTEND Physician Assistant
DX: H54.7 Unspecified visual loss (principal); R51 Headache
CPT/HCPCS: 36415; 80053; 84439; 84443; 84481; 85025; 85652

== ENCOUNTER 2018-09-04 21:54 | Emergency (ER) | payer OTHER ==
[2018-09-04 22:31] VITALS: RESP 18
--- NOTE | 2018-09-04 23:08 | XR ---
EXAM: XR Left Foot Complete, 3 or More Views CLINICAL HISTORY: ITS.REASON XR Reason: Pain TECHNIQUE: Frontal, lateral and oblique views of the left foot. COMPARISON: No relevant prior studies available. FINDINGS: No acute fracture or dislocation. Bipartite medial sesamoid incidentally noted. Mild degenerative changes. Calcaneal enthesophytes. IMPRESSION: No acute fracture or dislocation.
--- NOTE | 2018-09-04 23:22 | ED ---
Lower Extremity Injury HPI - General Source: patient, RN notes reviewed, old records reviewed Mode of arrival: wheelchair Limitations: physical limitation <Rosa Samuels - Last Filed: 09/23/18 15:38> <Maddi Guerrero P - Last Filed: 09/27/18 03:59> - General Chief Complaint: Extremity Injury, Lower Stated Complaint: Foot injury Time Seen by Provider: 09/04/18 22:32 - History of Present Illness Initial Comments: Patient adilene 33 year old female with CC of left foot pain after she tripped in a ditch while hunting. Patient reports pain over lateral aspect of left foot and swelling and bruising between toes in mid foot. She reports pain with ambulation. No previous foot fractures or sprains. Patient has no otehr complaints. (Rosa Samuels) - Related Data Home Medications Medication Instructions Recorded Confirmed Albuterol Inhaler [Ventolin Hfa 1 puff PO RT-Q6H PRN 04/28/18 04/28/18 Inhaler] Atorvastatin [Lipitor] 10 mg PO HS 04/28/18 04/28/18 Baclofen [Lioresal] 10 mg PO BID 04/28/18 04/28/18 Gabapentin [Neurontin] 100 mg PO HS 04/28/18 04/28/18 Gabapentin [Neurontin] 300 - 600 mg PO BID 04/28/18 04/28/18 Naproxen [Naprosyn] 500 mg PO Q12HR PRN 04/28/18 04/28/18 busPIRone HCl [Buspar] 10 mg PO DAILY 04/28/18 04/28/18 Previous Rx's Medication Instructions Recorded Ibuprofen 600 mg PO TID #20 tablet 09/04/18 Allergies Allergy/AdvReac Type Severity Reaction Status Date / Time cortisone Allergy Unknown Verified 09/04/18 22:31 hydrocortisone Allergy Rash/Hives Verified 09/04/18 22:31 Penicillins Allergy Unknown Verified 09/04/18 22:31 Review of Systems ROS Other: All systems not noted in ROS Statement are negative. <oRsa Samuels - Last Filed: 09/23/18 15:38> ROS Other: All systems not noted in ROS Statement are negative. <Maddi Guerrero P - Last Filed: 09/27/18 03:59> ROS Statement: Those systems with pertinent positive or pertinent negative responses have been documented in the HPI. Past Medical History Past Medical History: Hyperlipidemia, Hypertension, Thyroid Disorder Additional Past Medical History / Comment(s): depression History of Any Multi-Drug Resistant Organisms: None Reported Past Surgical History: Cholecystectomy Additional Past Surgical History / Comment(s): Breast reduction Past Psychological History: Anxiety, Depression Smoking Status: Former smoker Past Alcohol Use History: Occasional Past Drug Use History: None Reported <Rosa Samuels - Last Filed: 09/23/18 15:38> General Exam Limitations: physical limitation General appearance: alert, in no apparent distress Head exam: Present: atraumatic, normocephalic, normal inspection Eye exam: Present: normal appearance, PERRL, EOMI. Absent: scleral icterus, conjunctival injection, periorbital swelling ENT exam: Present: normal exam, mucous membranes moist Neck exam: Present: normal inspection. Absent: tenderness, meningismus, lymphadenopathy Respiratory exam: Present: normal lung sounds bilaterally. Absent: respiratory distress, wheezes, rales, rhonchi, stridor Cardiovascular Exam: Present: regular rate, normal rhythm, normal heart sounds. Absent: systolic murmur, diastolic murmur, rubs, gallop, clicks GI/Abdominal exam: Present: soft, normal bowel sounds. Absent: distended, tenderness, guarding, rebound, rigid Left Knee exam: Present: normal inspection, full ROM Lower Leg exam: Present: normal inspection, full ROM Ankle exam: Present: full ROM Foot/Toe exam: Present: tenderness (over fifth trhough 2nd metatarsal. Bruising and swelling onted over distal 2nd and 3rd metatarsal. Rull ROM of toes . normal dorasalis pedis pulse. ) Back exam: Present: normal inspection Neurological exam: Present: alert, oriented X3, CN II-XII intact Psychiatric exam: Present: normal affect, normal mood <Rosa Samuels - Last Filed: 09/23/18 15:38> <Maddi Guerrero - Last Filed: 09/27/18 03:59> - General Exam Comments Initial Comments: Well appearing 33 year old female, no distress. (Rosa Samuels) Vital Signs 09/04/18 09/04/18 22:27 23:44 Temperature 98.2 F 97.2 F L Pulse Rate 66 76 Respiratory 18 18 Rate Blood Pressure 144/84 144/76 O2 Sat by Pulse 98 98 Oximetry Medical Decision Making - Radiology Data Radiology results: report reviewed <Rosa Samuels - Last Filed: 09/23/18 15:38> <Maddi Guerrero - Last Filed: 09/27/18 03:59> - Medical Decision Making 33 eyar old femael with left foot pain fter she tripped in [place] while hunting in a ditch. Patient has some bruising and swellingnoted over foot. No ankle or knee pain. Patient xray of foot is normal . PAtient placed in SERGO wrap and Rx for crutches and referral for orthopedic was given Discussed RICE instructions. Return parameters discussed. (Rosa Samuels) I was available for consultation in the emergency department. The history and physical exam were done by the midlevel provider. I was consulted for this patient's care. I reviewed the case with the midlevel provider and based on their presentation of the patient, I agree with the assessment, medical decision making and plan of care as documented. (Maddi Guerrero) - Radiology Data Normal Left foot xray, no fracture or dislocation. (Rosa Samuels) Disposition Is patient prescribed a controlled substance at d/c from ED?: No Time of Disposition: 23:21 <Rosa Samuels - Last Filed: 09/23/18 15:38> <Maddi Guerrero - Last Filed: 09/27/18 03:59> Clinical Impression: Foot sprain Disposition: HOME SELF-CARE Condition: Good Instructions: Foot Sprain (ED) Additional Instructions: Patient has a close follow-up with primary care physician. Rest, ice, and elevate extremity. Return to the emergency department if any alarming signs or symptoms occur. Prescriptions: Ibuprofen 600 mg PO TID #20 tablet Referrals: Danya Araujo DO [Primary Care Provider] - 1-2 days
[2018-09-04 23:48] VITALS: BP 144/76; PULSE 76; TEMP 97.2
== END 2018-09-04 23:44 | disposition home or self-care (01) ==
LOC: EC 21:54
DX: S93.602A Unspecified sprain of left foot, initial encounter (principal); E78.5 Hyperlipidemia, unspecified; F41.9 Anxiety disorder, unspecified; F32.9 Major depressive disorder, single episode, unspecified; Z79.899 Other long term (current) drug therapy; Z88.0 Allergy status to penicillin; Z88.8 Allergy status to other drugs, medicaments and biological substances; Z87.891 Personal history of nicotine dependence; W18.42XA Slipping, tripping and stumbling without falling due to stepping into hole or opening, initial encounter
CPT/HCPCS: 99284

== ENCOUNTER → 2018-10-06 | Outpatient (CLI) | payer OTHER ==
--- NOTE | 2018-10-06 11:28 | FL ---
ESOPHOGRAM. HISTORY: Dysphagia Esophagram was performed per the air contrast technique. The patient swallowed barium and effervesce nt crystals without difficulty or delay. Esophageal peristalsis and motility appear to be within normal limits. There is no evidence for filling defect, mass or diverticulum. No hiatal hernia seen. Subsequently single contrast cervical esophagram was performed which fails demonstrate evidence for a spiration penetration or mass. IMPRESSION: Unremarkable study.
== END | disposition home or self-care (01) ==
LOC: RADFLWHC 08:51
PROVIDERS: ATTEND Family Medicine
DX: R13.10 Dysphagia, unspecified (principal); K21.9 Gastro-esophageal reflux disease without esophagitis
CPT/HCPCS: 74220

== ENCOUNTER → 2018-10-23 | Outpatient (CLI) | payer OTHER ==
--- NOTE | 2018-10-23 22:52 | MR ---
EXAMINATION TYPE: MR venography head wo/w con DATE OF EXAM: 10/23/2018 COMPARISON: MRI brain and orbits August 01, 2018. HISTORY: Rt eye vision loss in sep 2018 x 3 weeks, papilledema per order. CONTRAST: Standard multiplanar, multisequence MRI departmental protocol utilizing 13 mL intravenous Gadavist ga dolinium contrast. 2-D and 3-D reconstructed images are created on the MRI scanner and reviewed FINDINGS: There is patency of the superior sagittal sinus. There is patency of internal cerebral vein and vein of Lalito draining into the straight sinus. 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 There is patency of bilateral transverse sinuses draining into sigmoid sinuses and internal jugular veins with asymmetric right-sided diminished caliber redemonstrated. IMPRESSION: No MRI evidence for focal deep cerebral venous thrombosis.
== END | disposition home or self-care (01) ==
LOC: RADMRIMAIN 18:06
PROVIDERS: ATTEND Ophthalmology
DX: H47.10 Unspecified papilledema (principal)
CPT/HCPCS: 70546; A9585

== ENCOUNTER 2018-12-26 21:30 | Emergency (ER) | payer OTHER ==
[2018-12-26] MEDS ORDERED: SODIUM CHLORIDE 0.9% 1,000 ML IV STA (22:06)
[2018-12-26] MEDS ORDERED: DIAZEPAM 5 MG/ML 2 ML INJ IVP STA (22:06)
[2018-12-26] MEDS ORDERED: GLUCAGON 1 MG/ML VIAL IVP STA (22:06)
[2018-12-26 22:25] LABS: Basophils # (A) 0.1 k/uL (0-0.2); Basophils % (A) 1 %; Eosinophils # (A) 0.3 k/uL (0-0.7); Eosinophils % (A) 3 %; HGB 14.9 gm/dL (11.4-16.0); Lymphocytes # (A) 2.8 k/uL (1.0-4.8); Lymphocytes % (A) 21 %; MCH 29.3 pg (25.0-35.0); MCHC 33.2 g/dL (31.0-37.0); MCV 88.5 fL (80.0-100.0); Mean Platelet Volume 6.9; Monocytes # (A) 0.8 k/uL (0-1.0); Monocytes % (A) 6 %; Neutrophils # (A) 9.4 k/uL (1.3-7.7); Neutrophils % (A) 70 %; Platelet Count 352 k/uL (150-450); RBC 5.08 m/uL (3.80-5.40); RDW 13.1 % (11.5-15.5); WBC 13.5 k/uL (3.8-10.6)
[2018-12-26 22:33] LABS: INR 0.9 (<1.2)
[2018-12-26 22:35] LABS: Anion Gap 11 mmol/L; Blood Urea Nitrogen 11 mg/dL (7-17); Calcium 10.2 mg/dL (8.4-10.2); Carbon Dioxide 24 mmol/L (22-30); Chloride 104 mmol/L (98-107); Glucose 96 mg/dL (74-99); Sodium 139 mmol/L (137-145)
[2018-12-26 23:53] VITALS: RESP 16
--- NOTE | 2018-12-27 00:15 | ED ---
Abdominal Pain HPI - General Chief Complaint: Abdominal Pain Stated Complaint: upper abd pain Time Seen by Provider: 12/26/18 21:45 Source: patient Mode of arrival: ambulatory Limitations: no limitations - History of Present Illness Initial Comments: The patient is a 33-year-old female who presents to the emergency department with complaint of esophageal food bolus. The patient was eating ribs 30 minutes prior to arrival. She states that she had a choking episode where it felt as if it got stuck in her throat. She did cough and began to vomit a portion of the ribs out. States that she feels still feels like she has a chunk stuck in her throat. She attempted to make herself vomit further. He also drank some water in order to help the past. She had no relief with her symptoms and so she had her family drive her to the emergency department. She admits to 2 additional episodes of vomiting within the car. She is able to tolerate her secretions however cannot handle any water. She denies any shortness of breath or chest pain. She has had 3 similar episodes in the past. She followed up with a GI physician who sent her for a swallow evaluation. She denies ever having an EGD or colonoscopy. There are no other alleviating, precipitating or modifying factors - Related Data Home Medications Medication Instructions Recorded Confirmed Albuterol Inhaler [Ventolin Hfa 1 puff PO RT-Q6H PRN 04/28/18 12/22/18 Inhaler] Atorvastatin [Lipitor] 10 mg PO HS 04/28/18 12/22/18 Gabapentin [Neurontin] 100 mg PO HS PRN 04/28/18 12/22/18 Gabapentin [Neurontin] 300 - 600 mg PO BID PRN 04/28/18 12/22/18 Naproxen [Naprosyn] 500 mg PO Q12HR PRN 04/28/18 12/22/18 busPIRone HCl [Buspar] 10 mg PO DAILY 04/28/18 12/22/18 Cyclobenzaprine [Flexeril] 10 mg PO HS PRN 12/22/18 12/22/18 Ibuprofen 800 mg PO TID PRN 12/22/18 12/22/18 Levothyroxine Sodium [Synthroid] 88 mcg PO DAILY 12/22/18 12/22/18 Ranitidine HCl [Zantac] 150 mg PO BID 12/22/18 12/22/18 Allergies Allergy/AdvReac Type Severity Reaction Status Date / Time cortisone Allergy SEVERE Verified 12/26/18 22:49 ABDOMINAL PAIN hydrocortisone Allergy Rash/Hives Verified 12/26/18 22:49 Penicillins Allergy Rash/Hives Verified 12/26/18 22:49 Review of Systems ROS Statement: Those systems with pertinent positive or pertinent negative responses have been documented in the HPI. ROS Other: All systems not noted in ROS Statement are negative. Past Medical History Past Medical History: Asthma, Hyperlipidemia, Hypertension, Thyroid Disorder Additional Past Medical History / Comment(s): MIGRAINE HEADACHE History of Any Multi-Drug Resistant Organisms: None Reported Past Surgical History: Cholecystectomy Additional Past Surgical History / Comment(s): Breast reduction, Past Anesthesia/Blood Transfusion Reactions: No Reported Reaction Past Psychological History: Anxiety, Bipolar, Depression, PTSD Smoking Status: Former smoker Past Alcohol Use History: None Reported Past Drug Use History: None Reported - Past Family History Sister(s) Family Medical History: Cancer General Exam Limitations: no limitations General appearance: alert, in no apparent distress Head exam: Present: atraumatic, normocephalic, normal inspection Eye exam: Present: normal appearance, PERRL, EOMI. Absent: scleral icterus, conjunctival injection, periorbital swelling ENT exam: Present: normal exam, mucous membranes moist Neck exam: Present: normal inspection. Absent: tenderness, meningismus, lymphadenopathy Respiratory exam: Present: normal lung sounds bilaterally. Absent: respiratory distress, wheezes, rales, rhonchi, stridor Cardiovascular Exam: Present: regular rate, normal rhythm, normal heart sounds. Absent: systolic murmur, diastolic murmur, rubs, gallop, clicks GI/Abdominal exam: Present: soft, normal bowel sounds. Absent: distended, tenderness, guarding, rebound, rigid Extremities exam: Present: normal inspection, full ROM, normal capillary refill. Absent: tenderness, pedal edema, joint swelling, calf tenderness Back exam: Present: normal inspection Neurological exam: Present: alert, oriented X3, CN II-XII intact Psychiatric exam: Present: normal affect, normal mood Skin exam: Present: warm, dry, intact, normal color. Absent: rash Course Vital Signs 12/26/18 12/26/18 12/27/18 21:31 23:50 00:39 Temperature 98.6 F 98.7 F Pulse Rate 85 73 81 Respiratory 18 16 16 Rate Blood Pressure 127/84 122/84 127/82 O2 Sat by Pulse 98 98 96 Oximetry Medical Decision Making - Medical Decision Making The patient was placed into room 10. We did obtain IV access. A CBC, BMP and coags were performed on the patient. CBC does demonstrate a leukocytosis. She was given 500 mL of 0.9% normal saline and 1 mg of glucagon. She is reevaluated after medication administration and has improvement in her symptoms. She is given a glass of water. She is able to tolerate liquids at this time. I did discuss the diagnosis, differential diagnosis and treatment options. At this time the patient will be discharged home. She must follow up with recommended GI specialist for further evaluation. I did inform her that she will need an EGD to look for areas of stricture. The patient understood this. She was given written and verbal discharge instructions and discharged home in stable condition - Differential Diagnosis Esophageal food bolus, esophageal irritation, esophageal web or stricture - Lab Data Result diagrams: 12/26/18 22:10 12/26/18 22:10 Lab Results 12/26/18 12/26/18 12/26/18 Range/Units 22:10 22:10 22:10 WBC 13.5 H (3.8-10.6) k/uL RBC 5.08 (3.80-5.40) m/uL Hgb 14.9 (11.4-16.0) gm/dL Hct 45.0 (34.0-46.0) % MCV 88.5 (80.0-100.0) fL MCH 29.3 (25.0-35.0) pg MCHC 33.2 (31.0-37.0) g/dL RDW 13.1 (11.5-15.5) % Plt Count 352 (150-450) k/uL Neutrophils % 70 % Lymphocytes % 21 % Monocytes % 6 % Eosinophils % 3 % Basophils % 1 % Neutrophils # 9.4 H (1.3-7.7) k/uL Lymphocytes # 2.8 (1.0-4.8) k/uL Monocytes # 0.8 (0-1.0) k/uL Eosinophils # 0.3 (0-0.7) k/uL Basophils # 0.1 (0-0.2) k/uL PT 10.0 (9.0-12.0) sec INR 0.9 (<1.2) APTT 24.0 (22.0-30.0) sec Sodium 139 (137-145) mmol/L Potassium 4.0 (3.5-5.1) mmol/L Chloride 104 (98-107) mmol/L Carbon Dioxide 24 (22-30) mmol/L Anion Gap 11 mmol/L BUN 11 (7-17) mg/dL Creatinine 0.69 (0.52-1.04) mg/dL Est GFR (CKD-EPI)AfAm >90 (>60 ml/min/1.73 sqM) Est GFR (CKD-EPI)NonAf >90 (>60 ml/min/1.73 sqM) Glucose 96 (74-99) mg/dL Calcium 10.2 (8.4-10.2) mg/dL Disposition Clinical Impression: Choking episode Disposition: HOME SELF-CARE Condition: Good Instructions (If sedation given, give patient instructions): Esophageal Foreign Body (ED) Additional Instructions: Please follow up with the GI doctor for further evaluation. You need to have an EGD. Return to the emergency department for any new or worsening symptoms. Is patient prescribed a controlled substance at d/c from ED?: No Referrals: Danya Araujo DO [Primary Care Provider] - 1-2 days Marvel Clark MD [STAFF PHYSICIAN] - 1-2 days Time of Disposition: 00:14
[2018-12-27 00:40] VITALS: BP 127/82; PULSE 81; TEMP 98.7
== END 2018-12-27 00:40 | disposition home or self-care (01) ==
LOC: EC 21:30
DX: R09.89 Other specified symptoms and signs involving the circulatory and respiratory systems (principal); R10.10 Upper abdominal pain, unspecified; R05 Cough; R11.10 Vomiting, unspecified; D72.829 Elevated white blood cell count, unspecified; J45.909 Unspecified asthma, uncomplicated; E78.5 Hyperlipidemia, unspecified; E07.9 Disorder of thyroid, unspecified; F41.9 Anxiety disorder, unspecified; Z87.891 Personal history of nicotine dependence; Z86.69 Personal history of other diseases of the nervous system and sense organs; Z79.899 Other long term (current) drug therapy; Z88.0 Allergy status to penicillin; Z88.8 Allergy status to other drugs, medicaments and biological substances
CPT/HCPCS: 36415; 80048; 85025; 85610; 85730; 99284; 96374; 96375; 96361 ×2; J1610; J3360

== ENCOUNTER 2019-01-05 13:20 | Emergency (ER) | payer OTHER ==
[2019-01-05 13:35] VITALS: TEMP 97.8
[2019-01-05] MEDS ORDERED: KETOROLAC 60 MG/2 ML VIAL IM STA (14:08)
--- NOTE | 2019-01-05 14:15 | ED ---
General Adult HPI - General Chief complaint: Back Pain/Injury Stated complaint: Back pain Time Seen by Provider: 01/05/19 13:42 Source: patient, RN notes reviewed, old records reviewed Mode of arrival: ambulatory Limitations: no limitations - History of Present Illness Initial comments: 33-year-old female patient past history of acute pancreatitis strength to ED with lumbar back pain. Patient reports that yesterday while getting out of her car on the way to work she felt a strain in her lumbar back region. Patient reports that her pain primarily in her right perilumbar back recently, has some mild radiation down her leg Jane and posterior right leg. Patient states that this feels similar to sciatica symptoms she has had in the past. Patient denies any recent falls or trauma. Patient has a loss of bowel or bladder control, lower extremity weakness, saddle anesthesia, IV drug use, fevers or chills. Patient denies any other complaints today. Systemic: Pt denies fatigue, fever/chills, rash. Pt denies weakness, night sweats, weight loss. Neuro: Pt denies headache, visual disturbances, syncope or pre-syncope. HEENT: Pt denies ocular discharge or irritation, otalgia, rhinorrhea, pharyngitis or notable lymphadenopathy. Cardiopulmonary: Pt denies chest pain, SOB, heart palpitations, dyspnea on exertion. Abdominal/GI: Pt denies abdominal pain, n/v/d. : Pt denies dysuria, burning w/ urination, frequency/urgency. Denies new onset urinary or bowel incontinence. MSK: Pt denies loss of strength or function in extremities. Neuro: Pt denies new onset weakness, paresthesias. - Related Data Home Medications Medication Instructions Recorded Confirmed busPIRone HCl [Buspar] 10 mg PO BID 04/28/18 01/05/19 Levothyroxine Sodium [Synthroid] 88 mcg PO DAILY 12/22/18 01/05/19 Acetaminophen Tab [Tylenol Tab] 325 mg PO Q4H PRN 01/05/19 01/05/19 Beclomethasone Dip 80 Mcg/Puff 2 puff INHALATION RT-DAILY 01/05/19 01/05/19 [Qvar 80 mcg] Fluticasone Nasal [place] [Flonase 2 spr EA NOSTRIL DAILY 01/05/19 01/05/19 Nasal [place]] Ibuprofen [Motrin Ib] 400 mg PO Q6H PRN 01/05/19 01/05/19 Previous Rx's Medication Instructions Recorded Ibuprofen [Motrin] 600 mg PO Q6HR PRN #40 day 01/05/19 predniSONE 50 mg PO DAILY #5 tab 01/05/19 Allergies Allergy/AdvReac Type Severity Reaction Status Date / Time cortisone Allergy SEVERE Verified 01/05/19 14:49 ABDOMINAL PAIN hydrocortisone Allergy Rash/Hives Verified 01/05/19 14:49 Penicillins Allergy Rash/Hives Verified 01/05/19 14:49 Review of Systems ROS Statement: Those systems with pertinent positive or pertinent negative responses have been documented in the HPI. ROS Other: All systems not noted in ROS Statement are negative. Past Medical History Past Medical History: Asthma, Hyperlipidemia, Hypertension, Thyroid Disorder Additional Past Medical History / Comment(s): MIGRAINE HEADACHE History of Any Multi-Drug Resistant Organisms: None Reported Past Surgical History: Cholecystectomy Additional Past Surgical History / Comment(s): Breast reduction, Past Anesthesia/Blood Transfusion Reactions: No Reported Reaction Past Psychological History: Anxiety, Bipolar, Depression, PTSD Smoking Status: Former smoker Past Alcohol Use History: None Reported Past Drug Use History: None Reported - Past Family History Sister(s) Family Medical History: Cancer General Exam - General Exam Comments Initial Comments: Constitutional: NAD, AOX3, Pt has pleasant affect. HEENT: NC/AT, trachea midline, neck supple, no lymphadenopathy. Posterior pharynx non erythematous, without exudates. External ears appear normal, without discharge. Mucous membranes moist. Eyes PERRLA, EOM intact. There is no scleral icterus. No pallor noted. Cardiopulmonary: RRR, no murmurs, rubs or gallops, no JVD noted. Lungs CTAB in anterior and posterior jimenez. No peripheral edema. Abdominal exam: Abdomen soft and non-distended. Abdomen non-tender to palpation in all 4 quadrants. Bowel sounds active in LLQ. No hepatosplenomegaly. No ecchymosis Neuro: CN II-XII grossly intact. No nuchal rigidity. MSK: Right straight leg raise positive, straight leg raise negative. No midline cervical thoracic lumbar tenderness. Mild right paralumbar tenderness. 5 out of 5 strength psoas and quadriceps muscles. Distal pulses intact and equal. Heel to toe wlaking intact. No posterior calf tenderness bilaterally, homans sign negative bilaterally. Posterior tibialis and radial pulse +2 bilaterally. Sensation intact in upper and lower extremities. Full active ROM in upper and lower extremities, 5/5 stregnth. Limitations: no limitations Course Vital Signs 01/05/19 13:33 Temperature 97.8 F Pulse Rate 70 Respiratory 20 Rate Blood Pressure 161/93 O2 Sat by Pulse 99 Oximetry Medical Decision Making - Medical Decision Making 33-year-old female patient past history of acute pancreatitis strength to ED with lumbar back pain. Patient reports that yesterday while getting out of her car on the way to work she felt a strain in her lumbar back region. Patient reports that her pain primarily in her right perilumbar back recently, has some mild radiation down her leg Jane and posterior right leg. Patient states that this feels similar to sciatica symptoms she has had in the past. Patient denies any recent falls or trauma. Patient has a loss of bowel or bladder control, lower extremity weakness, saddle anesthesia, IV drug use, fevers or chills. Patient denies any other complaints today. Pt VSS, afebrile. Physical exam displayed: Right straight leg raise positive, straight leg raise negative. No midline cervical thoracic lumbar tenderness. Mild right paralumbar tenderness. 5 out of 5 strength psoas and quadriceps muscles. Distal pulses intact and equal. Heel to toe wlaking intact. No lumbar spine displayed mild de generative disc disease. These findings explained to patient. Patient improved with Toradol. He states that she is not . Patient states that she is able to take prednisone without difficulty. Patient to be discharged with prednisone and ibuprofen. Patient given referral for orthopedic follow-up. Patient return to ER if conditions worsen. Case discussed with Dr. Cam. Disposition Clinical Impression: Lumbar back sprain Disposition: HOME SELF-CARE Condition: Stable Instructions (If sedation given, give patient instructions): Acute Low Back Pain (ED) Additional Instructions: Patient to adhere to previously discussed treatment plan and will take medication(s) as directed. Patient to follow up with PCP in 1-2 days. Patient to return to ED if symptoms do not improve. Physical medication as directed. Please follow-up with orthopedic consult in 1- 2 days. Please return to ER if condition worsens in any way. Prescriptions: Ibuprofen [Motrin] 600 mg PO Q6HR PRN #40 day PRN Reason: Pain predniSONE 50 mg PO DAILY #5 tab Is patient prescribed a controlled substance at d/c from ED?: No Referrals: Danya Araujo, [Primary Care Provider] - 1-2 days Ysabel Hogue, PAC [PHYSICIAN [employer] E[employer]OMIST] - 1-2 days
--- NOTE | 2019-01-05 14:55 | XR ---
Lumbar spine HISTORY: Low back pain 3 views of the lumbar spine, correlation to previous dated October 31, 2009 Surgical clips present in the right upper quadrant. There is no evident spondylolysis or spondylolist hesis. Lumbar vertebral bodies show preserved height and bone mineralization. There is loss of disc h eight L5-S1 and to lesser extent L4-5. Mild multilevel spondylosis. IMPRESSION: Degenerative disc disease.
[2019-01-05 15:52] VITALS: BP 128/74; PULSE 79; RESP 16
== END 2019-01-05 15:52 | disposition home or self-care (01) ==
LOC: EC 13:20
DX: S33.5XXA Sprain of ligaments of lumbar spine, initial encounter (principal); J45.909 Unspecified asthma, uncomplicated; E07.9 Disorder of thyroid, unspecified; I10 Essential (primary) hypertension; F31.9 Bipolar disorder, unspecified; F41.9 Anxiety disorder, unspecified; F43.10 Post-traumatic stress disorder, unspecified; Z79.890 Hormone replacement therapy; Z79.899 Other long term (current) drug therapy; Z79.51 Long term (current) use of inhaled steroids; Z88.0 Allergy status to penicillin; Z88.8 Allergy status to other drugs, medicaments and biological substances; X58.XXXA Exposure to other specified factors, initial encounter
CPT/HCPCS: 72100; 99284; 96372; J1885

== ENCOUNTER → 2019-02-20 | Outpatient (CLI) | payer OTHER ==
[2019-02-20 15:32] LABS: Basophils # (A) 0.1 k/uL (0-0.2); Basophils % (A) 1 %; Eosinophils # (A) 0.4 k/uL (0-0.7); Eosinophils % (A) 4 %; HCT 44.5 % (34.0-46.0); HGB 14.8 gm/dL (11.4-16.0); Lymphocytes # (A) 2.7 k/uL (1.0-4.8); Lymphocytes % (A) 27 %; MCH 29.4 pg (25.0-35.0); MCHC 33.3 g/dL (31.0-37.0); MCV 88.5 fL (80.0-100.0); Mean Platelet Volume 7.1; Monocytes # (A) 0.5 k/uL (0-1.0); Monocytes % (A) 5 %; Neutrophils # (A) 6.1 k/uL (1.3-7.7); Neutrophils % (A) 61 %; Platelet Count 311 k/uL (150-450); RBC 5.03 m/uL (3.80-5.40); RDW 13.5 % (11.5-15.5); WBC 9.9 k/uL (3.8-10.6)
[2019-02-20 20:53] LABS: Folate, Serum 17.6 ng/mL; Vitamin D 25 Hydroxy 11.9 ng/mL (30.0-100.0)
[2019-02-20 20:54] LABS: Albumin 5.2 g/dL (3.80-4.90); Albumin/Globulin Ratio 2.36 (1.60-3.17); Anion Gap 11.7 mmol/L (4.00-12.00); Calcium 9.6 mg/dL (8.7-10.3); Carbon Dioxide 15.3 mmol/L (21.6-31.8); Globulin 2.2 g/dL (1.6-3.3); LDL Cholesterol,Calculated 121.6 mg/dL (0.0-131.0); Total Bilirubin 0.6 mg/dL (0.3-1.2); Total Protein 7.4 g/dL (6.2-8.2); VLDL Calculation 22.4 mg/dL (5.00-40.00)
[2019-02-21 01:25] LABS: Hemoglobin A1C 5.1 % (4.0-6.0)
== END | disposition home or self-care (01) ==
LOC: LABWHC1 14:33
PROVIDERS: ATTEND Nurse Practitioner Family
DX: E03.9 Hypothyroidism, unspecified (principal); F31.81 Bipolar II disorder
CPT/HCPCS: 36415; 80053; 80061; 82306; 82607; 82746; 83036; 84443; 85025

== ENCOUNTER 2019-11-11 10:26 | Emergency (ER) | payer OTHER ==
[2019-11-11 10:46] VITALS: BP 134/90; TEMP 98
--- NOTE | 2019-11-11 11:12 | XR ---
EXAMINATION TYPE: XR chest 2V DATE OF EXAM: 11/11/2019 HISTORY: cough. REFERENCE: Previous study dated 04/29/2018. FINDINGS: The lungs remain clear. Pleural spaces are clear. The heart is not enlarged. IMPRESSION: NO ACTIVE INTRATHORACIC DISEASE.
--- NOTE | 2019-11-11 11:31 | ED ---
SOB HPI - General Chief Complaint: Shortness of Breath Stated Complaint: congestion/SOB Time Seen by Provider: 11/11/19 10:55 Source: patient, RN notes reviewed Mode of arrival: ambulatory Limitations: no limitations - History of Present Illness Initial Comments: 34-year-old female presents emergency Department chief complaint of fever cough congestion. Patient states she had a recent exposure to influenza and bronchitis. Patient states that she has a nonproductive cough is that she started with a sore throat and nasal congestion which has progressed into her chest. Patient has taken some atin-epl-gyekbed medications minimal relief. No ear pain no headache currently denies any neck pain or neck stiffness. - Related Data Home Medications Medication Instructions Recorded Confirmed busPIRone HCl [Buspar] 10 mg PO BID 04/28/18 01/05/19 Levothyroxine Sodium [Synthroid] 88 mcg PO DAILY 12/22/18 01/05/19 Acetaminophen Tab [Tylenol Tab] 325 mg PO Q4H PRN 01/05/19 01/05/19 Beclomethasone Dip 80 Mcg/Puff 2 puff INHALATION RT-DAILY 01/05/19 01/05/19 [Qvar 80 mcg] Fluticasone Nasal [place] [Flonase 2 spr EA NOSTRIL DAILY 01/05/19 01/05/19 Nasal [place]] Ibuprofen [Motrin Ib] 400 mg PO Q6H PRN 01/05/19 01/05/19 Previous Rx's Medication Instructions Recorded Ibuprofen [Motrin] 600 mg PO Q6HR PRN #40 day 01/05/19 predniSONE 50 mg PO DAILY #5 tab 01/05/19 Oseltamivir [Tamiflu] 75 mg PO Q12HR #10 cap 11/11/19 Allergies Allergy/AdvReac Type Severity Reaction Status Date / Time cortisone Allergy SEVERE Verified 11/11/19 10:46 ABDOMINAL PAIN hydrocortisone Allergy Rash/Hives Verified 11/11/19 10:46 Penicillins Allergy Rash/Hives Verified 11/11/19 10:46 Review of Systems ROS Statement: Those systems with pertinent positive or pertinent negative responses have been documented in the HPI. ROS Other: All systems not noted in ROS Statement are negative. Past Medical History Past Medical History: Asthma, Hyperlipidemia, Hypertension, Thyroid Disorder Additional Past Medical History / Comment(s): MIGRAINE HEADACHE History of Any Multi-Drug Resistant Organisms: None Reported Past Surgical History: Cholecystectomy Additional Past Surgical History / Comment(s): Breast reduction, Past Anesthesia/Blood Transfusion Reactions: No Reported Reaction Past Psychological History: Anxiety, Bipolar, Depression, PTSD Smoking Status: Former smoker Past Alcohol Use History: None Reported Past Drug Use History: None Reported - Past Family History Sister(s) Family Medical History: Cancer General Exam Limitations: no limitations General appearance: alert, in no apparent distress Head exam: Present: atraumatic, normocephalic, normal inspection Eye exam: Present: normal appearance, PERRL, EOMI. Absent: scleral icterus, conjunctival injection, periorbital swelling ENT exam: Present: normal exam, normal oropharynx, mucous membranes moist, TM's normal bilaterally Neck exam: Present: normal inspection, full ROM. Absent: tenderness, meningismus, lymphadenopathy Respiratory exam: Present: normal lung sounds bilaterally. Absent: respiratory distress, wheezes, rales, rhonchi, stridor Cardiovascular Exam: Present: regular rate, normal rhythm, normal heart sounds. Absent: systolic murmur, diastolic murmur, rubs, gallop, clicks Course Vital Signs 11/11/19 11/11/19 10:43 11:03 Temperature 98.0 F Pulse Rate 92 Respiratory 18 20 Rate Blood Pressure 134/90 O2 Sat by Pulse 97 Oximetry Medical Decision Making - Medical Decision Making Chest x-ray is unremarkable. Patient is informed to be possibly started on Tamiflu did discuss Tylenol Motrin return parameters were discussed. - Lab Data Lab Results 11/11/19 Range/Units 11:12 Influenza Type A RNA Not Detected (Not Detectd) Influenza Type B (PCR) Detected H (Not Detectd) Disposition Clinical Impression: Influenza B Disposition: HOME SELF-CARE Condition: Stable Instructions (If sedation given, give patient instructions): Influenza (ED) Additional Instructions: Please return to the Emergency Department if symptoms worsen or any other concerns. Prescriptions: Oseltamivir [Tamiflu] 75 mg PO Q12HR #10 cap Is patient prescribed a controlled substance at d/c from ED?: No Referrals: Noris Tuttle MD [Primary Care Provider] - 1-2 days Time of Disposition: 11:43
[2019-11-11 12:01] VITALS: PULSE 89; RESP 18
== END 2019-11-11 12:01 | disposition home or self-care (01) ==
LOC: EC 10:26
DX: J10.1 Influenza due to other identified influenza virus with other respiratory manifestations (principal); J45.909 Unspecified asthma, uncomplicated; E07.9 Disorder of thyroid, unspecified; F41.9 Anxiety disorder, unspecified; Z87.891 Personal history of nicotine dependence; Z88.0 Allergy status to penicillin; Z88.8 Allergy status to other drugs, medicaments and biological substances; Z79.51 Long term (current) use of inhaled steroids; Z79.890 Hormone replacement therapy; Z79.899 Other long term (current) drug therapy; Z20.828 Contact with and (suspected) exposure to other viral communicable diseases
CPT/HCPCS: 71046; 87502; 99285

== ENCOUNTER 2020-02-24 21:43 | Emergency (ER) | payer OTHER ==
[2020-02-24 21:55] VITALS: RESP 18
[2020-02-24] MEDS ORDERED: NITROGLYCERIN SL TABS 0.4 MG TAB SUBLINGUAL STA (22:49)
[2020-02-24] MEDS ORDERED: GLUCAGON 1 MG/ML VIAL IVP STA (22:49)
[2020-02-24] MEDS ORDERED: METOCLOPRAMIDE 5 MG/ML 2 ML VIAL IVP STA (22:49)
--- NOTE | 2020-02-24 23:44 | ED ---
General Adult HPI - General Chief complaint: ENT Stated complaint: Difficulty breathing, food stuck in chest Time Seen by Provider: 02/24/20 22:12 Source: patient, family, RN notes reviewed, old records reviewed Mode of arrival: ambulatory Limitations: no limitations - History of Present Illness Initial comments: 34-year-old male patient presents to ED for chief complaint of esophageal food impaction. Patient reports that she was eating barbecue chicken felt it get stuck approximately one hour prior to presentation. Not been able to tolerate liquids since, denies any shortness of breath. Denies any other complaints. Denies any chance of being . Systemic: Pt denies fatigue, fever/chills, rash. Pt denies weakness, night sweats, weight loss. Neuro: Pt denies headache, visual disturbances, syncope or pre-syncope. HEENT: Pt denies ocular discharge or irritation, otalgia, rhinorrhea, pharyngitis or notable lymphadenopathy. Cardiopulmonary: Pt denies chest pain, SOB, heart palpitations, dyspnea on exertion. Abdominal/GI: Pt denies abdominal pain, n/v/d. : Pt denies dysuria, burning w/ urination, frequency/urgency. Denies new onset urinary or bowel incontinence. MSK: Pt denies myalgia, loss of strength or function in extremities. Neuro: Pt denies new onset weakness, paresthesias. - Related Data Home Medications Medication Instructions Recorded Confirmed busPIRone HCl [Buspar] 10 mg PO BID 04/28/18 01/05/19 Levothyroxine Sodium [Synthroid] 88 mcg PO DAILY 12/22/18 01/05/19 Acetaminophen Tab [Tylenol Tab] 325 mg PO Q4H PRN 01/05/19 01/05/19 Beclomethasone Dip 80 Mcg/Puff 2 puff INHALATION RT-DAILY 01/05/19 01/05/19 [Qvar 80 mcg] Fluticasone Nasal [place] [Flonase 2 spr EA NOSTRIL DAILY 01/05/19 01/05/19 Nasal [place]] Ibuprofen [Motrin Ib] 400 mg PO Q6H PRN 01/05/19 01/05/19 Previous Rx's Medication Instructions Recorded Ibuprofen [Motrin] 600 mg PO Q6HR PRN #40 day 01/05/19 predniSONE 50 mg PO DAILY #5 tab 01/05/19 Oseltamivir [Tamiflu] 75 mg PO Q12HR #10 cap 11/11/19 Allergies Allergy/AdvReac Type Severity Reaction Status Date / Time cortisone Allergy SEVERE Verified 02/24/20 21:54 ABDOMINAL PAIN hydrocortisone Allergy Rash/Hives Verified 02/24/20 21:54 Penicillins Allergy Rash/Hives Verified 02/24/20 21:54 Review of Systems ROS Statement: Those systems with pertinent positive or pertinent negative responses have been documented in the HPI. ROS Other: All systems not noted in ROS Statement are negative. Past Medical History Past Medical History: Asthma, Hyperlipidemia, Hypertension, Thyroid Disorder Additional Past Medical History / Comment(s): MIGRAINE HEADACHE, psudotumor head History of Any Multi-Drug Resistant Organisms: None Reported Past Surgical History: Cholecystectomy Additional Past Surgical History / Comment(s): Breast reduction, Past Anesthesia/Blood Transfusion Reactions: No Reported Reaction Past Psychological History: Anxiety, Bipolar, Depression, PTSD Smoking Status: Former smoker Past Alcohol Use History: None Reported Past Drug Use History: None Reported - Past Family History Sister(s) Family Medical History: Cancer General Exam - General Exam Comments Initial Comments: Constitutional: NAD, AOX3, Pt has pleasant affect. HEENT: NC/AT, trachea midline, neck supple, no lymphadenopathy. External ears appear normal, without discharge. Mucous membranes moist. Eyes PERRLA, EOM intact. There is no scleral icterus. No pallor noted. Cardiopulmonary: RRR, no murmurs, rubs or gallops, no JVD noted. Lungs CTAB in anterior and posterior jimenez. No peripheral edema. Abdominal exam: Abdomen soft and non-distended. Abdomen non-tender to palpation in all 4 quadrants. Bowel sounds active in LLQ. No hepatosplenomegaly. No ecchymosis Neuro: CN II-XII grossly intact. No nuchal rigidity. No raccon eyes, no pennington sign, no hemotympanum. No cervical spinal tenderness. MSK: No posterior calf tenderness bilaterally, homans sign negative bilaterally. Posterior tibialis and radial pulse +2 bilaterally. Sensation intact in upper and lower extremities. Full active ROM in upper and lower extremities, 5/5 stregnth. Limitations: no limitations Course Vital Signs 02/24/20 02/24/20 02/24/20 21:47 23:10 23:20 Temperature 98.4 F Pulse Rate 80 67 79 Respiratory 18 18 18 Rate Blood Pressure 137/83 109/81 120/85 O2 Sat by Pulse 99 100 98 Oximetry Medical Decision Making - Medical Decision Making 34-year-old male patient presents to ED for chief complaint of esophageal food impaction. Patient reports that she was eating barbecue chicken felt it get stuck approximately one hour prior to presentation. Not been able to tolerate liquids since, denies any shortness of breath. Denies any other complaints. Denies any chance of being . Patient vital signs stable, afebrile. Physical did not display acute pathology. Patient was administered Reglan glucagon and nitro. Patient had episode of nausea and vomiting after this and vomited up the piece of chicken. Has been able tolerate liquids without difficulty. She did she is feeling much better. Denies any complaints. Pt will be discharged and will follow up with primary care provider as well as GI. Case discussed with Dr. Joy. Disposition Clinical Impression: Food impaction of esophagus Disposition: HOME SELF-CARE Condition: Stable Instructions (If sedation given, give patient instructions): Esophageal Foreign Body (ED), Esophageal Spasm (ED) Additional Instructions: Follow-up with primary care provider tomorrow. Follow up GI consult tomorrow. Return to ER if condition worsens in any way. Is patient prescribed a controlled substance at d/c from ED?: No Referrals: Noris Tuttle MD [Primary Care Provider] - 1-2 days Angelic Sotomayor MD [STAFF PHYSICIAN] - 1-2 days
[2020-02-24 23:55] VITALS: BP 114/79; PULSE 68; TEMP 98
== END 2020-02-24 23:55 | disposition home or self-care (01) ==
LOC: EC 21:43
DX: R11.2 Nausea with vomiting, unspecified (principal); T18.128A Food in esophagus causing other injury, initial encounter; J45.909 Unspecified asthma, uncomplicated; F41.9 Anxiety disorder, unspecified; E07.9 Disorder of thyroid, unspecified; Z79.51 Long term (current) use of inhaled steroids; Z79.890 Hormone replacement therapy; Z79.899 Other long term (current) drug therapy; Z87.891 Personal history of nicotine dependence; Z88.8 Allergy status to other drugs, medicaments and biological substances; Z88.0 Allergy status to penicillin; Z90.49 Acquired absence of other specified parts of digestive tract; Y93.89 Activity, other specified
CPT/HCPCS: 96374; 96375; 99285; J1610; J2765

== ENCOUNTER → 2020-03-05 | Outpatient (CLI) | payer OTHER | END | disposition home or self-care (01) | LOC: LABWHC1 12:13 | PROVIDERS: ATTEND Internal Medicine Gastroenterology | DX: Z11.59 Encounter for screening for other viral diseases (principal) ==

== ENCOUNTER → 2020-03-07 | Day surgery (SDC) | payer OTHER ==
[2020-03-06 08:37] VITALS: BMI 44.6
[~2020-03-07] MED LIST: DEXAMETHASONE SOD PHOS (MDV) 100 MG/10 ML VIAL IVP ONE; LACTATED RINGERS 1,000 ML IV SCH; LIDOCAINE 1% INJ 10MG/ML (20 ML MDV) ONE; ONDANSETRON 4 MG/2 ML VIAL IVP ONE; PROPOFOL 10 MG/ML 20 ML VIAL IV ONE
[2020-03-07 09:05] VITALS: RESP 16; TEMP 97.2
--- NOTE | 2020-03-07 09:59 | P.PCN ---
Date of Procedure: 03/07/20 Procedure(s) Performed: BRIEF HISTORY: Patient is a 34-year-old, pleasant, to 8 female scheduled for an upper endoscopy with possible dilation as a part of evaluation of intermittent dysphagia to solids for the last 1 year duration. She has 2 episodes of food impaction in the past and the last one was about 2 weeks ago admission she went to the emergency room and was given IV glucagon and has symptoms resolved. She did not need any endoscopic intervention at that time. She is hence scheduled for an upper endoscopy with possible dilation. PROCEDURE PERFORMED: Esophagogastroduodenoscop with dilation and biopsy. PREOPERATIVE DIAGNOSIS: Intermittent dysphagia to solids and recent episode episode of food impaction. IV sedation per anesthesia. PROCEDURE: After informed consent was obtained, the patient was brought into the endoscopy unit. IV sedation was administered by Anesthesia under continuous monitoring. Initially the Olympus GIF-140 video endoscope was inserted into the mouth. Esophagus intubated without any difficulty. It was gradually advanced into the stomach and duodenum and carefully examined. The bulb and the second part of the duodenum appeared normal. The scope at this time was withdrawn to the stomach, adequately insufflated with air, and upon careful examination, muc eddie of the antrum, patchy areas of erythema in the prepyloric area and biopsies were done. The body, cardia and the fundus appeared normal. The scope was then withdrawn into the esophagus. The GE junction was located at 40 cm from the incisors. There was a distal esophageal Schatzki's ring identified that was widely patent. At this time proceed with a balloon dilation using 18-20 mm balloon and was initially dilated to 18 mm for 20 seconds. There was a mucosal tear and brisk oozing identified at the site of dilation and hence further dilation was not performed The rest of the esophagus appeared normal. There were no erosions or ulcerations seen, biopsies were done from the mid and distal esophagus and the patient tolerated the procedure well. IMPRESSION: 1. Distal esophageal Schatzki's ring status post balloon dilation using 18 mm TTS balloon as described above. 2. Mild antral gastritis. RECOMMENDATIONS: The findings of this examination were discussed with the patient as well as her family. She'll remain on a clear liquid diet today. He was advised to follow with the biopsy results She will be seen in office in 3-4 weeks..
[2020-03-07 10:16] VITALS: BP 102/69; PULSE 52
== END ==
LOC: ORWHC2ENDO 08:39
PROVIDERS: ATTEND Internal Medicine Gastroenterology
DX: K22.2 Esophageal obstruction (principal); K29.50 Unspecified chronic gastritis without bleeding; B96.81 Helicobacter pylori [H. pylori] as the cause of diseases classified elsewhere; E07.9 Disorder of thyroid, unspecified; Z86.73 Personal history of transient ischemic attack (TIA), and cerebral infarction without residual deficits; G43.909 Migraine, unspecified, not intractable, without status migrainosus; J45.909 Unspecified asthma, uncomplicated; F41.8 Other specified anxiety disorders; F43.10 Post-traumatic stress disorder, unspecified; Z79.890 Hormone replacement therapy; Z79.899 Other long term (current) drug therapy; Z88.8 Allergy status to other drugs, medicaments and biological substances; Z88.5 Allergy status to narcotic agent; Z88.0 Allergy status to penicillin
CPT/HCPCS: 81025; 88305; 88342; 43239; 43249; J2405; J2001; J2704; C1726; 45386

== ENCOUNTER → 2020-03-31 | Outpatient (CLI) | payer OTHER ==
--- NOTE | 2020-03-31 20:33 | MR ---
MR brain without contrast HISTORY: Pseudotumor cerebri, papilledema Multiplanar multisequence imaging through the brain Comparison prior brain MRI 08/01/2018, no intravenous contrast due to lack of access There is no restricted diffusion. No hemorrhage or hydrocephalus is evident. Brain signal is stable. Fluid signal along the optic nerves is stable and is likely within normal limits rather than represen ting prominent subarachnoid space. Optic nerves mildly redundant in stable. Cerebellopontine angles, corpus callosum, cervical medullary junction are unremarkable. There is a partially empty sella. Orbi ts show symmetric appearance. Possible mucus retention cyst within the left maxillary sinus again not ed, inflammatory changes within the ethmoid air cells. IMPRESSION: Partially empty sella, findings at the optic nerves can be seen in association with idiop athic intracranial hypertension.
== END | disposition home or self-care (01) ==
LOC: RADMRIMAIN 17:31
PROVIDERS: ATTEND Ophthalmology
DX: G93.2 Benign intracranial hypertension (principal); H47.10 Unspecified papilledema
CPT/HCPCS: 70551

== ENCOUNTER 2020-08-05 12:12 | Day surgery (SDC) | payer OTHER ==
[2020-08-04 11:03] VITALS: BMI 43.2
[~2020-08-05 12:12] MED LIST changes: -DEXAMETHASONE SOD PHOS (MDV) 100 MG/10 ML VIAL IVP ONE; -LIDOCAINE 1% INJ 10MG/ML (20 ML MDV) ONE; -ONDANSETRON 4 MG/2 ML VIAL IVP ONE; -PROPOFOL 10 MG/ML 20 ML VIAL IV ONE
[2020-08-05 13:06] VITALS: TEMP 97.1
--- NOTE | 2020-08-05 14:05 | P.PCN ---
Date of Procedure: 08/05/20 Surgeon: Ad Hogan Pathology: none sent Condition: stable Disposition: PACU Description of Procedure: Procedure=1-lumbar puncture . Preoperative diagnoses= pseudotumor cerebri Postoperative diagnosis= same as above Anesthesia= local only with 1% lidocaine Condition= stable. Complications=none. Indication for the procedure: The patient was referred to us by her neurologist for diagnostic lumbar puncture to rule out high intraspinal pressure. procedure risk and benefits and alternatives discussed with the patient and she was agreeable to proceeding with it. Description of the procedure=the patient was brought into the procedure room and placed in the left lateral decubitus position, monitors applied, the back prepped with chlorhexidine , skin was localized with 1% lidocaine, then 22-gauge 3.5 inch quinckie spinal Needle advanced slowly at L4 -5 interlaminar space to get access to the intrathecal space. The opening pressure was 30 cm of water. Cerebrospinal fluid was clear with no heme. Only one attempt was needed. No paresthesia was encountered during this procedure . the spinal fluid then was let to drain spontaneously for a few minutes. . The closing pressure is 18 cm .the needle removed, Band-Aid applied , patient tolerated the procedure well without any complications. Further management as per her neurologist.
[2020-08-05 14:10] VITALS: RESP 16
[2020-08-05 14:28] VITALS: BP 132/84; PULSE 66
== END 2020-08-05 14:29 | disposition home or self-care (01) ==
LOC: ORPAIN 12:12
PROVIDERS: ATTEND Anesthesiology
DX: G93.2 Benign intracranial hypertension (principal); E66.01 Morbid (severe) obesity due to excess calories; Z88.0 Allergy status to penicillin; Z88.5 Allergy status to narcotic agent; Z79.899 Other long term (current) drug therapy; Z68.42 Body mass index [BMI] 45.0-49.9, adult
CPT/HCPCS: 62270; 81025

== ENCOUNTER 2020-10-13 18:08 | Emergency (ER) | payer OTHER ==
--- NOTE | 2020-10-13 18:14 | ED ---
Abdominal Pain HPI - General Chief Complaint: Abdominal Pain Stated Complaint: abd pain Time Seen by Provider: 10/13/20 18:14 Source: patient Mode of arrival: ambulatory Limitations: no limitations - History of Present Illness Initial Comments: 35-year-old male presenting to the emergency department with chief complaint of abdominal pain. She states the pain started approximately one week ago with gradual increase in severity. She states the pain is constant and sharp in nature. Reports started in the left lower quadrant region with occasional ra diation across the abdomen. Denies any nausea vomiting diarrhea. States the pain is not postprandial. Denies any back pain chest pain shortness of breath. Denies any urinary or vaginal symptoms. She does have surgical history of cholecystectomy. Does report taking [id number] analgesics with no significant improvements of symptoms - Related Data Home Medications Medication Instructions Recorded Confirmed Albuterol Nebulized [Ventolin 2.5 mg INHALATION RT-Q8H PRN 03/06/20 10/13/20 Nebulized] Famotidine [Pepcid] 20 mg PO HS 03/06/20 10/13/20 Levothyroxine Sodium [Levoxyl] 137 mcg PO DAILY 03/06/20 10/13/20 Ergocalciferol (Vitamin D2) 1,250 mcg PO SUMO 10/13/20 10/13/20 [Vitamin D2 (50,000 units)] HYDROcodone/APAP 5-325MG [[place] 1 tab PO Q6H PRN 10/13/20 10/13/20 5-325] Ibuprofen [Motrin] 600 mg PO TID PRN 10/13/20 10/13/20 Unknown Inhaler 1 puff INHALATION RT-DAILY 10/13/20 10/13/20 Allergies Allergy/AdvReac Type Severity Reaction Status Date / Time bee venom protein (honey bee) Allergy Dyspnea Verified 10/13/20 19:27 cortisone Allergy SEVERE Verified 10/13/20 19:27 ABDOMINAL PAIN hydrocortisone Allergy Rash/Hives Verified 10/13/20 19:27 Penicillins Allergy Rash/Hives Verified 10/13/20 19:27 Review of Systems ROS Statement: Those systems with pertinent positive or pertinent negative responses have been documented in the HPI. ROS Other: All systems not noted in ROS Statement are negative. 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 Irregular heartbeat. History of Any Multi-Drug Resistant Organisms: None Reported Past Surgical History: Breast Surgery, Cholecystectomy Additional Past Surgical History / Comment(s): Breast reduction, eye surgery - sheaths placed bilaterally. Past Anesthesia/Blood Transfusion Reactions: Motion Sickness Past Psychological History: Anxiety, Bipolar, Depression, PTSD Smoking Status: Former smoker Past Alcohol Use History: None Reported Past Drug Use History: None Reported - Past Family History Sister(s) Family Medical History: Cancer General Exam Limitations: no limitations General appearance: alert, in no apparent distress, obese Head exam: Present: atraumatic, normocephalic, normal inspection Eye exam: Present: normal appearance, PERRL, EOMI Pupils: Present: normal accommodation ENT exam: Present: normal exam, normal oropharynx, mucous membranes moist, TM's normal bilaterally, normal external ear exam Neck exam: Present: normal inspection, full ROM. Absent: tenderness Respiratory exam: Present: normal lung sounds bilaterally. Absent: respiratory distress, wheezes, rales, rhonchi, stridor Cardiovascular Exam: Present: regular rate, normal rhythm, normal heart sounds. Absent: systolic murmur, diastolic murmur GI/Abdominal exam: Present: soft, tenderness (Left lower quadrant abdominal tenderness.), normal bowel sounds. Absent: distended, guarding, rebound, rigid Extremities exam: Present: normal inspection, full ROM, normal capillary refill. Absent: tenderness, pedal edema, joint swelling, calf tenderness Back exam: Present: normal inspection, full ROM. Absent: tenderness, CVA tenderness (R), CVA tenderness (L) Neurological exam: Present: alert, oriented X3, normal gait Psychiatric exam: Present: normal affect, normal mood. Absent: depressed Skin exam: Present: warm, dry, intact, normal color Course Vital Signs 10/13/20 10/13/20 18:09 21:05 Temperature 97.7 F 98.0 F Pulse Rate 82 69 Respiratory 18 16 Rate Blood Pressure 140/93 131/93 O2 Sat by Pulse 99 100 Oximetry Medical Decision Making - Medical Decision Making 35-year-old female presenting to emergency Department with chief complaint of a bdominal pain. On physical examination, patient has localized left lower quadrant tenderness. CBC unremarkable. CMP reveals mild transaminitis. UA reveals some leukocyte esterase but this appears to be a contaminated sample. Patient was given IV fluids and analgesia. CT of abdomen and pelvis with contrast reveals nonspecific left renal pelvic ectasia which may correlate to a recently passed stone. No hydronephrosis or calculi noted. Left side peritoneal catheter from a [employer] shunt. She does have an headaches or focal neurological deficits. There is a pelvic surgical clips adjacent to the bladder. Patient was advised to follow up with her primary care physician. Strict return parameters were thoroughly discussed patient was sitting agreeable. Case discussed with physician. - Lab Data Result diagrams: 10/13/20 18:53 10/13/20 18:53 Lab Results 10/13/20 10/13/20 10/13/20 Range/Units 18:53 18:53 18:53 WBC 10.2 (3.8-10.6) k/uL RBC 4.83 (3.80-5.40) m/uL Hgb 14.3 (11.4-16.0) gm/dL Hct 42.6 (34.0-46.0) % MCV 88.1 (80.0-100.0) fL MCH 29.6 (25.0-35.0) pg MCHC 33.6 (31.0-37.0) g/dL RDW 12.3 (11.5-15.5) % Plt Count 299 (150-450) k/uL MPV 6.8 Neutrophils % 54 % Lymphocytes % 32 % Monocytes % 7 % Eosinophils % 5 % Basophils % 1 % Neutrophils # 5.5 (1.3-7.7) k/uL Lymphocytes # 3.3 (1.0-4.8) k/uL Monocytes # 0.7 (0-1.0) k/uL Eosinophils # 0.5 (0-0.7) k/uL Basophils # 0.1 (0-0.2) k/uL Sodium 138 (137-145) mmol/L Potassium 4.1 (3.5-5.1) mmol/L Chloride 107 (98-107) mmol/L Carbon Dioxide 24 (22-30) mmol/L Anion Gap 7 mmol/L BUN 10 (7-17) mg/dL Creatinine 0.78 (0.52-1.04) mg/dL Est GFR (CKD-EPI)AfAm >90 (>60 ml/min/1.73 sqM) Est GFR (CKD-EPI)NonAf >90 (>60 ml/min/1.73 sqM) Glucose 93 (74-99) mg/dL Calcium 9.4 (8.4-10.2) mg/dL Total Bilirubin 0.6 (0.2-1.3) mg/dL AST 37 H (14-36) U/L ALT 38 H (4-34) U/L Alkaline Phosphatase 50 (38-126) U/L Total Protein 7.6 (6.3-8.2) g/dL Albumin 4.7 (3.5-5.0) g/dL Lipase 184 (23-300) U/L Urine Color Yellow Urine Appearance Cloudy H (Clear) Urine pH 7.0 (5.0-8.0) Ur Specific [place] 1.024 (1.001-1.035) Urine Protein Trace H (Negative) Urine Glucose (UA) Negative (Negative) Urine Ketones Negative (Negative) Urine Blood Trace H (Negative) Urine Nitrite Negative (Negative) Urine Bilirubin Negative (Negative) Urine Urobilinogen <2.0 (<2.0) mg/dL Ur Leukocyte Esterase Moderate H (Negative) Urine RBC 3 (0-5) /hpf Urine WBC 5 (0-5) /hpf Ur Squamous Epith Cells 17 H (0-4) /hpf Urine Bacteria Rare H (None) /hpf Urine Mucus Few H (None) /hpf Urine HCG, Qual (Not Detectd) 10/13/20 Range/Units 18:53 WBC (3.8-10.6) k/uL RBC (3.80-5.40) m/uL Hgb (11.4-16.0) gm/dL Hct (34.0-46.0) % MCV (80.0-100.0) fL MCH (25.0-35.0) pg MCHC (31.0-37.0) g/dL RDW (11.5-15.5) % Plt Count (150-450) k/uL MPV Neutrophils % % Lymphocytes % % Monocytes % % Eosinophils % % Basophils % % Neutrophils # (1.3-7.7) k/uL Lymphocytes # (1.0-4.8) k/uL Monocytes # (0-1.0) k/uL Eosinophils # (0-0.7) k/uL Basophils # (0-0.2) k/uL Sodium (137-145) mmol/L Potassium (3.5-5.1) mmol/L Chloride (98-107) mmol/L Carbon Dioxide (22-30) mmol/L Anion Gap mmol/L BUN (7-17) mg/dL Creatinine (0.52-1.04) mg/dL Est GFR (CKD-EPI)AfAm (>60 ml/min/1.73 sqM) Est GFR (CKD-EPI)NonAf (>60 ml/min/1.73 sqM) Glucose (74-99) mg/dL Calcium (8.4-10.2) mg/dL Total Bilirubin (0.2-1.3) mg/dL AST (14-36) U/L ALT (4-34) U/L Alkaline Phosphatase (38-126) U/L Total Protein (6.3-8.2) g/dL Albumin (3.5-5.0) g/dL Lipase (23-300) U/L Urine Color Urine Appearance (Clear) Urine pH (5.0-8.0) Ur Specific [place] (1.001-1.035) Urine Protein (Negative) Urine Glucose (UA) (Negative) Urine Ketones (Negative) Urine Blood (Negative) Urine Nitrite (Negative) Urine Bilirubin (Negative) Urine Urobilinogen (<2.0) mg/dL Ur Leukocyte Esterase (Negative) Urine RBC (0-5) /hpf Urine WBC (0-5) /hpf Ur Squamous Epith Cells (0-4) /hpf Urine Bacteria (None) /hpf Urine Mucus (None) /hpf Urine HCG, Qual Not Detected (Not Detectd) - EKG Data EKG Comments: Sinus bradycardia with first-degree AV block Ventricular rate 56, OR 220, QRS 80, QTC 413. Disposition Clinical Impression: Abdominal pain Disposition: HOME SELF-CARE Condition: Stable Instructions (If sedation given, give patient instructions): Abdominal Pain (ED) Additional Instructions: Follow-up with a primary care physician. Return to emergency department if symptoms worsen. Is patient prescribed a controlled substance at d/c from ED?: No Referrals: Noris Tuttle MD [Primary Care Provider] - 1-2 days Time of Disposition: 20:48
[2020-10-13] MEDS ORDERED: SODIUM CHLORIDE 0.9% 1,000 ML IV STA (18:22)
[2020-10-13] MEDS ORDERED: KETOROLAC 15 MG/ML 1 ML VIAL IVP STA (18:22)
[2020-10-13 19:09] LABS: Basophils # (A) 0.1 k/uL (0-0.2); Basophils % (A) 1 %; Eosinophils # (A) 0.5 k/uL (0-0.7); Eosinophils % (A) 5 %; HCT 42.6 % (34.0-46.0); HGB 14.3 gm/dL (11.4-16.0); Lymphocytes # (A) 3.3 k/uL (1.0-4.8); Lymphocytes % (A) 32 %; MCH 29.6 pg (25.0-35.0); MCHC 33.6 g/dL (31.0-37.0); MCV 88.1 fL (80.0-100.0); Mean Platelet Volume 6.8; Monocytes # (A) 0.7 k/uL (0-1.0); Monocytes % (A) 7 %; Neutrophils # (A) 5.5 k/uL (1.3-7.7); Neutrophils % (A) 54 %; Platelet Count 299 k/uL (150-450); RBC 4.83 m/uL (3.80-5.40); RDW 12.3 % (11.5-15.5); WBC 10.2 k/uL (3.8-10.6)
[2020-10-13 19:10] LABS: Appearance,Urine Cloudy (Clear); Bacteria,Urine Rare /hpf; Bilirubin,Urine Negative (Negative); Blood,Urine Trace (Negative); Color,Urine Yellow; Glucose,Urine (UA) Negative (Negative); Ketones,Urine Negative (Negative); Leukocyte Esterase,Urine Moderate (Negative); Mucus,Urine Few /hpf; Nitrite,Urine Negative (Negative); Protein,Urine Trace (Negative); RBC,Urine 3 /hpf (0-5); Specific Gravity,Urine 1.024 (1.001-1.035); Squamous Epithelial Cell,Urine 17 /hpf (0-4); Urobilinogen,Urine <2.0 mg/dL (<2.0); WBC,Urine 5 /hpf (0-5)
[2020-10-13 19:20] LABS: ALT 38 U/L (4-34); AST 37 U/L (14-36); African American GFR (CKD) >90 (>60 ml/min/1.73 sqM); Albumin 4.7 g/dL (3.5-5.0); Alkaline Phosphatase 50 U/L (38-126); Anion Gap 7 mmol/L; Blood Urea Nitrogen 10 mg/dL (7-17); Calcium 9.4 mg/dL (8.4-10.2); Carbon Dioxide 24 mmol/L (22-30); Chloride 107 mmol/L (98-107); Glucose 93 mg/dL (74-99); Lipase 184 U/L (23-300); Non-African American GFR(CKD) >90 (>60 ml/min/1.73 sqM); Potassium 4.1 mmol/L (3.5-5.1); Sodium 138 mmol/L (137-145); Total Bilirubin 0.6 mg/dL (0.2-1.3); Total Protein 7.6 g/dL (6.3-8.2)
--- NOTE | 2020-10-13 20:14 | CT ---
EXAMINATION TYPE: CT abdomen pelvis w con DATE OF EXAM: 10/13/2020 COMPARISON: None available. HISTORY: Left lower quadrant tenderness. CT DLP: 2635.9 mGycm Automated exposure control for dose reduction was used. TECHNIQUE: Helical acquisition of images was performed from the lung bases through the pelvis. CONTRAST: Performed without Oral Contrast and with IV Contrast, patient injected with 100 mL of Isovue 300. FINDINGS: LUNG BASES: No significant abnormality is appreciated. LIVER/GB: No significant abnormality is appreciated. Cholecystectomy noted. PANCREAS: No significant abnormality is seen. SPLEEN: No significant abnormality is seen. ADRENALS: No significant abnormality is seen. KIDNEYS: Left renal pelvic ectasia. No overt bilateral hydronephrosis or definite nephrolithiasis. Th ere is a 4 mm benign left renal cyst. FREE AIR: No free air is visualized. RETROPERITONEAL ADENOPATHY: None visualized REPRODUCTIVE ORGANS: No significant abnormality is seen URINARY BLADDER: No significant abnormality is seen. PELVIC ADENOPATHY: None visualized. OSSEOUS STRUCTURES: No significant abnormality is seen. BOWEL: No significant abnormality is seen. OTHER: Pelvic phleboliths seen. Peritoneal catheter terminating in the left hemipelvis seen. Addition al surgical clip in the pelvis adjacent to the superior bladder. IMPRESSION: NONSPECIFIC LEFT RENAL PELVIC ECTASIA, MAY RELATE TO RECENTLY PASSED STONE. NO OVERT BILATERAL HYDRONEPHROSIS OR OBSTRUCTING CALCULUS SEEN. Left-sided peritoneal catheter. Pelvic surgical clip adjacent to the bladder. Correlate clinically to exclude displaced tubal ligatio n clip.
[2020-10-13 21:06] VITALS: BP 131/93; PULSE 69; RESP 16; TEMP 98
== END 2020-10-13 21:17 | disposition home or self-care (01) ==
LOC: EC 18:08
DX: R10.9 Unspecified abdominal pain (principal); J45.909 Unspecified asthma, uncomplicated; K21.9 Gastro-esophageal reflux disease without esophagitis; E07.9 Disorder of thyroid, unspecified; Z79.899 Other long term (current) drug therapy; Z79.890 Hormone replacement therapy; Z88.0 Allergy status to penicillin; Z88.8 Allergy status to other drugs, medicaments and biological substances; Z91.030 Bee allergy status; Z87.891 Personal history of nicotine dependence; Z90.49 Acquired absence of other specified parts of digestive tract
CPT/HCPCS: 36415; 93005; 80053; 83690; 85025; 81001; 81025; 74177; 99284; J1885; Q9967

== ENCOUNTER → 2020-11-04 | Outpatient (CLI) | payer OTHER ==
--- NOTE | 2020-11-04 14:09 | US ---
EXAMINATION TYPE: US pelvic complete DATE OF EXAM: 11/04/2020 COMPARISON: NONE CLINICAL HISTORY: R10.2 Pelvic pain. pelvic pain TECHNIQUE: Transvaginal (TV) and Transabdominal (TA) . Transabdominal sonographic images of the pelvis were acquired. Transvaginal sonographic images were medically necessary to better assess the following anatomy: uterus and ovaries Date of LMP: 11/03/20 EXAM MEASUREMENTS: Uterus: 8.5 x 4.9 cm cm Endometrial Stripe: 0.4 cm Right Ovary: 2.2 x 1.0 cm cm Left Ovary: 3.0 x 1.8 x 2.0 cm cm 1. Uterus: Anteverted Heterogeneous. Nabothian cysts noted 2. Endometrium: appears wnl 3. Right Ovary: follicles noted 4. Left Ovary: follicles noted 5. Bilateral Adnexa: wnl 6. Posterior cul-de-sac: free fluid noted IMPRESSION: Nonspecific uterine myometrial heterogeneity. MTDD
== END | disposition home or self-care (01) ==
LOC: RADUSWWP 12:34
PROVIDERS: ATTEND Family Medicine
DX: R93.89 Abnormal findings on diagnostic imaging of other specified body structures (principal); R10.2 Pelvic and perineal pain
CPT/HCPCS: 76830; 76856

== ENCOUNTER → 2020-11-04 | Outpatient (CLI) | payer OTHER ==
--- NOTE | 2020-11-04 14:04 | US ---
EXAMINATION TYPE: US kidneys/renal and bladder DATE OF EXAM: 11/04/2020 COMPARISON: NONE CLINICAL HISTORY: Hydronephrosis N13.30. EXAM MEASUREMENTS: Right Kidney: 11.8 x 4.9 x 5.4 cm Left Kidney: 12.4 x 5.7 x 5.2 cm Right Kidney: no evidence of hydronephrosis Left Kidney: dense echogenic focus mid = 0.7cm Bladder: appears wnl Bilateral Jets seen: no There is no evidence for hydronephrosis at this point in time. No masses are identified. The urin isai bladder is anechoic. Bilateral ureteral jets are seen. IMPRESSION: Nonobstructing left-sided nephrolithiasis.
== END | disposition home or self-care (01) ==
LOC: RADUSWWP 12:31
PROVIDERS: ATTEND Urology
DX: N20.0 Calculus of kidney (principal)
CPT/HCPCS: 76770

== ENCOUNTER 2021-04-19 21:07 | Emergency (ER) | payer OTHER ==
[2021-04-19 21:32] VITALS: RESP 18; TEMP 98
[2021-04-19] MEDS ORDERED: KETOROLAC 15 MG/ML 1 ML VIAL IM STA (22:01)
[2021-04-19] MEDS ORDERED: ORPHENADRINE 30 MG/ML 2 ML VIAL IM STA (22:01)
--- NOTE | 2021-04-19 22:06 | ED ---
General Adult HPI - General Chief complaint: Nausea/Vomiting/Diarrhea Stated complaint: vomiting Source: patient, RN notes reviewed Mode of arrival: ambulatory Limitations: no limitations - History of Present Illness Initial comments: 35-year-old obese white female alert and oriented 4, presents to the emergency room complaining of right hip numbness after lifting a heavy box of fries last night at work. Patient states that she tried Motrin at home with no relief. She states that the pain is deep in her right buttock causing her difficulties while sitting. She states it feels numb down the back of her leg to her knee. She tried Motrin last night because she did become nauseated she vomited one time. She denies any abdominal pain at this time. She is a nonsmoker no IV drug use no history of cancers. -: days(s) (1) Location: right, lower extremity Radiation: extremity, distal Severity scale (1-10): 2 Quality: aching, other (numbness) Improves with: other (Leaning onto left hip sitting) Worsens with: other (Sitting flat) Associated Symptoms: other (One episode of nausea after taking Motrin) Treatments Prior to Arrival: none - Related Data Home Medications Medication Instructions Recorded Confirmed Albuterol Nebulized [Ventolin 2.5 mg INHALATION RT-Q8H PRN 03/06/20 10/13/20 Nebulized] Famotidine [Pepcid] 20 mg PO HS 03/06/20 10/13/20 Levothyroxine Sodium [Levoxyl] 137 mcg PO DAILY 03/06/20 10/13/20 Ergocalciferol (Vitamin D2) 1,250 mcg PO SUMO 10/13/20 10/13/20 [Vitamin D2 (50,000 units)] HYDROcodone/APAP 5-325MG [[place] 1 tab PO Q6H PRN 10/13/20 10/13/20 5-325] Ibuprofen [Motrin] 600 mg PO TID PRN 10/13/20 10/13/20 Unknown Inhaler 1 puff INHALATION RT-DAILY 10/13/20 10/13/20 Previous Rx's Medication Instructions Recorded Lidocaine [Lidoderm 5% Patch] 1 patch TRANSDERM DAILY 5 Days #5 04/19/21 patch Allergies Allergy/AdvReac Type Severity Reaction Status Date / Time bee venom protein (honey bee) Allergy Dyspnea Verified 04/19/21 21:32 cortisone Allergy SEVERE Verified 04/19/21 21:32 ABDOMINAL PAIN hydrocortisone Allergy Rash/Hives Verified 04/19/21 21:32 Penicillins Allergy Rash/Hives Verified 04/19/21 21:32 Review of Systems ROS Statement: Those systems with pertinent positive or pertinent negative responses have been documented in the HPI. ROS Other: All systems not noted in ROS Statement are negative. 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 Irregular heartbeat. History of Any Multi-Drug Resistant Organisms: None Reported Past Surgical History: Breast Surgery, Cholecystectomy Additional Past Surgical History / Comment(s): Breast reduction, eye surgery - sheaths placed bilaterally. Past Anesthesia/Blood Transfusion Reactions: Motion Sickness Past Psychological History: Anxiety, Bipolar, Depression, PTSD Smoking Status: Former smoker Past Alcohol Use History: None Reported Past Drug Use History: None Reported - Past Family History Sister(s) Family Medical History: Cancer General Exam Limitations: no limitations General appearance: alert, in no apparent distress Head exam: Present: atraumatic, normocephalic, normal inspection Eye exam: Present: normal appearance, PERRL, EOMI. Absent: scleral icterus, conjunctival injection, periorbital swelling ENT exam: Present: normal exam, normal oropharynx, mucous membranes moist Neck exam: Present: normal inspection, full ROM. Absent: tenderness, meningismus, lymphadenopathy, thyromegaly Respiratory exam: Present: normal lung sounds bilaterally. Absent: respiratory distress, wheezes, rales, rhonchi, stridor, chest wall tenderness, accessory muscle use, decreased breath sounds, prolonged expiratory Cardiovascular Exam: Present: regular rate, normal rhythm, normal heart sounds. Absent: systolic murmur, diastolic murmur, rubs, gallop, clicks GI/Abdominal exam: Present: soft, normal bowel sounds. Absent: distended, tenderness, guarding, rebound, rigid Extremities exam: Present: normal inspection, full ROM, normal capillary refill. Absent: tenderness, pedal edema, joint swelling, calf tenderness Back exam: Present: normal inspection, full ROM, tenderness (SI joint). Absent: CVA tenderness (R), CVA tenderness (L), muscle spasm, paraspinal tenderness, vertebral tenderness Expanded Back exam: Sciatic Notch Tenderness: Right, Negative Straight Leg Raising: Left, Right Neurological exam: Present: alert, oriented X3, CN II-XII intact Psychiatric exam: Present: normal affect, normal mood Skin exam: Present: warm, dry, intact, normal color. Absent: rash, cyanosis, diaphoretic, erythema, petechiae, pallor, mottled Course Vital Signs 04/19/21 04/19/21 21:29 23:51 Temperature 98.0 F Pulse Rate 75 101 H Respiratory 18 18 Rate Blood Pressure 138/95 133/78 O2 Sat by Pulse 99 97 Oximetry Medical Decision Making - Medical Decision Making Patient is awake and alert with no focal neurological deficits. She has a negative straight leg test bilaterally. She has tenderness to the SI joint on the right. Vital signs are stable patient is afebrile. She denies any IV drug use. Denies any saddle anesthesia or urinary or bowel incontinence. She gets some relief with medications and is ready to be discharged home. Patient was given a work note as requested. She was provided Lidoderm patches to use at home for future pain. Disposition Clinical Impression: Back pain, Nausea & vomiting Disposition: HOME SELF-CARE Condition: Good Instructions (If sedation given, give patient instructions): Acute Nausea and Vomiting (ED), Back Pain (ED), Lower Back Exercises (ED) Additional Instructions: Turned to the emergency room with any fevers, increasing pain, or inability keep fluids down. Follow-up with her primary care doctor this week. Prescriptions: Lidocaine [Lidoderm 5% Patch] 1 patch TRANSDERM DAILY 5 Days #5 patch Is patient prescribed a controlled substance at d/c from ED?: No Referrals: Noris Tuttle MD [Primary Care Provider] - 1-2 days Time of Disposition: 23:15
[2021-04-19 23:53] VITALS: BP 133/78; PULSE 101
== END 2021-04-19 23:53 | disposition home or self-care (01) ==
LOC: EC 21:07
DX: R11.2 Nausea with vomiting, unspecified (principal); M54.5 Low back pain; J45.909 Unspecified asthma, uncomplicated; K21.9 Gastro-esophageal reflux disease without esophagitis; F31.9 Bipolar disorder, unspecified; E66.9 Obesity, unspecified; Z79.1 Long term (current) use of non-steroidal anti-inflammatories (NSAID); Z79.890 Hormone replacement therapy; Z87.891 Personal history of nicotine dependence; Z79.51 Long term (current) use of inhaled steroids; Z79.899 Other long term (current) drug therapy; Z88.0 Allergy status to penicillin; Z68.41 Body mass index [BMI] 40.0-44.9, adult; X50.0XXA Overexertion from strenuous movement or load, initial encounter
CPT/HCPCS: 96372 ×2; 99283; J2360; J1885

== ENCOUNTER 2021-05-20 18:30 | Emergency (ER) | payer OTHER ==
[2021-05-20 19:52] VITALS: RESP 18
--- NOTE | 2021-05-20 20:25 | XR ---
EXAMINATION TYPE: XR lumbar spine 2 or 3V DATE OF EXAM: 05/20/2021 COMPARISON: 01/05/2019 HISTORY: Back pain TECHNIQUE: 3 views FINDINGS: Lumbar vertebra have normal alignment. Posterior elements are intact. There is no compressi on fracture. The sacroiliac joints are intact. There are clips from cholecystectomy. Disc spaces appe ar normal. IMPRESSION: Negative lumbar spine exam. No change compared to old exam.
[2021-05-20] MEDS ORDERED: MORPHINE SULFATE 4 MG/ML SYRINGE IM STA (22:05)
[2021-05-20] MEDS ORDERED: ORPHENADRINE 30 MG/ML 2 ML VIAL IM STA (22:05)
[2021-05-20] MEDS ORDERED: KETOROLAC 15 MG/ML 1 ML VIAL IM STA (22:05)
--- NOTE | 2021-05-20 22:06 | ED ---
Back Pain HPI - General Chief Complaint: Back Pain/Injury Stated Complaint: back/rt leg pain Time Seen by Provider: 05/20/21 21:29 Source: patient - History of Present Illness Initial Comments: 35-year-old female patient presents to the emergency department today for evaluation of right low back pain with radiation down the right leg. Patient states that she was working a couple weeks ago and felt a pop in her back and started having this pain. States that she was diagnosed with sciatica. Patient states yesterday she felt another pop and the pain worsened. States she is having some numbness and tingling along the outside of her right thigh. She denies numbness or tingling in her feet. Denies anesthesia or loss of bowel or bladder control. Denies any fever or chills. States she did take ibuprofen at home without relief. Denies any chance of . Denies any other concerning symptoms. - Related Data Home Medications Medication Instructions Recorded Confirmed Albuterol Nebulized [Ventolin 2.5 mg INHALATION RT-Q8H PRN 03/06/20 10/13/20 Nebulized] Famotidine [Pepcid] 20 mg PO HS 03/06/20 10/13/20 Levothyroxine Sodium [Levoxyl] 137 mcg PO DAILY 03/06/20 10/13/20 Ergocalciferol (Vitamin D2) 1,250 mcg PO SUMO 10/13/20 10/13/20 [Vitamin D2 (50,000 units)] HYDROcodone/APAP 5-325MG [[place] 1 tab PO Q6H PRN 10/13/20 10/13/20 5-325] Ibuprofen [Motrin] 600 mg PO TID PRN 10/13/20 10/13/20 Unknown Inhaler 1 puff INHALATION RT-DAILY 10/13/20 10/13/20 Previous Rx's Medication Instructions Recorded Lidocaine [Lidoderm 5% Patch] 1 patch TRANSDERM DAILY 5 Days #5 04/19/21 patch Naproxen [EC-Naprosyn] 500 mg PO BID PRN #30 tablet. 05/20/21 Orphenadrine [Norflex] 100 mg PO Q12H PRN #10 tablet.er 05/20/21 Allergies Allergy/AdvReac Type Severity Reaction Status Date / Time bee venom protein (honey bee) Allergy Dyspnea Verified 08/18/21 19:51 cortisone Allergy SEVERE Verified 05/20/21 19:51 ABDOMINAL PAIN hydrocortisone Allergy Rash/Hives Verified 05/20/21 19:51 Penicillins Allergy Rash/Hives Verified 05/20/21 19:51 Review of Systems ROS Statement: Those systems with pertinent positive or pertinent negative responses have been documented in the HPI. ROS Other: All systems not noted in ROS Statement are negative. 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 Irregular heartbeat. History of Any Multi-Drug Resistant Organisms: None Reported Past Surgical History: Breast Surgery, Cholecystectomy Additional Past Surgical History / Comment(s): Breast reduction, eye surgery - sheaths placed bilaterally. Past Anesthesia/Blood Transfusion Reactions: Motion Sickness Past Psychological History: Anxiety, Bipolar, Depression, PTSD Smoking Status: Former smoker Past Alcohol Use History: None Reported Past Drug Use History: None Reported - Past Family History Sister(s) Family Medical History: Cancer General Exam General appearance: alert, in no apparent distress, other (Physical well- developed, well-nourished adult female patient in no acute distress. Vital signs upon presentation are temperature 98.2F, pulse 68, respirations 18, blood pressure 136/84, pulse ox 98% on room air.) Respiratory exam: Present: normal lung sounds bilaterally. Absent: respiratory distress, wheezes, rales, rhonchi, stridor Cardiovascular Exam: Present: regular rate, normal rhythm, normal heart sounds. Absent: systolic murmur, diastolic murmur, rubs, gallop, clicks GI/Abdominal exam: Present: soft, normal bowel sounds. Absent: distended, tenderness, guarding, rebound, rigid Extremities exam: Present: normal inspection, full ROM, normal capillary refill, other (Skin to the lower extremities is pink, warm, dry. Cap refill less than 3 seconds. Pedal and posttibial pulses 2+. No swelling in the extremities.). Absent: tenderness, pedal edema, joint swelling, calf tenderness Back exam: Present: normal inspection. Absent: vertebral tenderness Neurological exam: Present: alert, oriented X3, CN II-XII intact, other (Strength in the lower extremities is 5/5) Psychiatric exam: Present: normal affect, normal mood Skin exam: Present: warm, dry, intact, normal color. Absent: rash Course Vital Signs 05/20/21 05/20/21 19:45 22:41 Temperature 98.2 F 97.9 F Pulse Rate 68 78 Respiratory 18 18 Rate Blood Pressure 136/84 132/79 O2 Sat by Pulse 98 99 Oximetry Medical Decision Making - Medical Decision Making 35-year-old female patient presents the emergency department today for evaluation of low back pain with radiation down the right leg. Physical examination was unremarkable. She is neurologically and neurovascularly intact. She has no concerning symptoms for cauda equina. Vital signs within normal range. Symptoms are consistent with sciatica in mechanical low back pain. She was given medications here in the emergency department. She'll be discharged follow up with the primary care physician for recheck in 1-2 days. Return parameters were discussed in detail. She verbalizes understanding and agrees with this plan. My attending is Dr. Shultz. - Radiology Data Radiology results: report reviewed, image reviewed 3 views of the lumbosacral spine are obtained. Report was reviewed in its entirety. Impression by Dr. Rodriges shows negative lumbar spine exam. No change compared to old exam. Disposition Clinical Impression: Sciatica Disposition: HOME SELF-CARE Condition: Good Instructions (If sedation given, give patient instructions): Sciatica (ED) Additional Instructions: Take medications as directed. Follow-up with the spinal specialist for further evaluation as soon as possible. Return for any new, worsening, or concerning symptoms. Prescriptions: Naproxen [EC-Naprosyn] 500 mg PO BID PRN #30 tablet.dr PRN Reason: Pain Orphenadrine [Norflex] 100 mg PO Q12H PRN #10 tablet.er PRN Reason: Back pain Is patient prescribed a controlled substance at d/c from ED?: No Referrals: Noris Tuttle MD [Primary Care Provider] - 1-2 days Radha Ordonez DO [Doctor of Osteopathic Medicine] - 1-2 days Time of Disposition: 22:06
[2021-05-20 22:42] VITALS: BP 132/79; PULSE 78; TEMP 97.9
== END 2021-05-20 22:42 | disposition home or self-care (01) ==
LOC: EC 18:30
DX: M54.40 Lumbago with sciatica, unspecified side (principal); J45.909 Unspecified asthma, uncomplicated; K21.9 Gastro-esophageal reflux disease without esophagitis; E07.9 Disorder of thyroid, unspecified; F41.9 Anxiety disorder, unspecified; F31.9 Bipolar disorder, unspecified; F43.12 Post-traumatic stress disorder, chronic; Z88.0 Allergy status to penicillin; Z88.1 Allergy status to other antibiotic agents; Z88.6 Allergy status to analgesic agent; Z87.891 Personal history of nicotine dependence; Z90.49 Acquired absence of other specified parts of digestive tract
CPT/HCPCS: 99283; 96372 ×3; 72100; J2270; J2360; J1885

== ENCOUNTER → 2021-08-20 | Outpatient (CLI) | payer OTHER ==
--- NOTE | 2021-08-20 17:43 | MR ---
EXAMINATION TYPE: MR lumbar spine wo con DATE OF EXAM: 08/20/2021 COMPARISON: 04/27/2018 HISTORY: Low back pain for several months that radiates down right leg CONTRAST: 0 mL intravenous Gadavist. TECHNIQUE: Multiplanar, multisequence images of the lumbar spine were acquired. FINDINGS: Disc heights are preserved. There is disc desiccation present at L4-5 and L5-S1. The cord terminates at the L1 level. Vertebral body heights are preserved. Signal within the osseous structures appears unremarkable. No focal disc herniations are evident. No significant disc bulges ar e present. Neural foramen appear patent. IMPRESSION: 1. Mild disc desiccation L4-5 and L5-S1. 2. No significant interval change from comparison.
== END | disposition home or self-care (01) ==
LOC: RADMRIMAIN 13:05
PROVIDERS: ATTEND Orthopaedic Surgery
DX: M51.17 Intervertebral disc disorders with radiculopathy, lumbosacral region (principal)
CPT/HCPCS: 72148

== ENCOUNTER 2021-11-01 14:07 | Emergency (ER) | payer OTHER ==
[2021-11-01 14:15] VITALS: BP 127/87; PULSE 81; RESP 16; TEMP 97.9
--- NOTE | 2021-11-01 14:28 | ED ---
Lower Extremity Injury HPI - General Chief Complaint: Extremity Injury, Lower Stated Complaint: Lt Ankle Pain and Swelling Time Seen by Provider: 11/01/21 14:16 Source: patient, RN notes reviewed Mode of arrival: ambulatory Limitations: no limitations - History of Present Illness Initial Comments: 36-year-old female presents emergency Department with chief complaint left ankle injury. Patient states she had some color boot and states that she slipped denies rolling her ankle days ago. She states she picked up a brace but states is so painful not improving. Patient states he feels very weak, seems to give out on her. Patient has no paresthesias no prior fracture denies any foot, knee pain. - Related Data Home Medications Medication Instructions Recorded Confirmed Albuterol Nebulized [Ventolin 2.5 mg INHALATION RT-Q8H PRN 03/06/20 10/13/20 Nebulized] Famotidine [Pepcid] 20 mg PO HS 03/06/20 10/13/20 Levothyroxine Sodium [Levoxyl] 137 mcg PO DAILY 03/06/20 10/13/20 Ergocalciferol (Vitamin D2) 1,250 mcg PO SUMO 10/13/20 10/13/20 [Vitamin D2 (50,000 units)] HYDROcodone/APAP 5-325MG [[place] 1 tab PO Q6H PRN 10/13/20 10/13/20 5-325] Ibuprofen [Motrin] 600 mg PO TID PRN 10/13/20 10/13/20 Unknown Inhaler 1 puff INHALATION RT-DAILY 10/13/20 10/13/20 Previous Rx's Medication Instructions Recorded Lidocaine [Lidoderm 5% Patch] 1 patch TRANSDERM DAILY 5 Days #5 04/19/21 patch Naproxen [EC-Naprosyn] 500 mg PO BID PRN #30 tablet.dr 05/20/21 Orphenadrine [Norflex] 100 mg PO Q12H PRN #10 tablet.er 05/20/21 Ibuprofen [Motrin] 800 mg PO Q6HR #30 tab 11/01/21 Allergies Allergy/AdvReac Type Severity Reaction Status Date / Time bee venom protein (honey bee) Allergy Dyspnea Verified 11/01/21 14:15 cortisone Allergy SEVERE Verified 11/01/21 14:15 ABDOMINAL PAIN hydrocortisone Allergy Rash/Hives Verified 11/01/21 14:15 Penicillins Allergy Rash/Hives Verified 11/01/21 14:15 Review of Systems ROS Statement: Those systems with pertinent positive or pertinent negative responses have been documented in the HPI. ROS Other: All systems not noted in ROS Statement are negative. 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 Irregular heartbeat. History of Any Multi-Drug Resistant Organisms: None Reported Past Surgical History: Breast Surgery, Cholecystectomy Additional Past Surgical History / Comment(s): Breast reduction, eye surgery - sheaths placed bilaterally. Past Anesthesia/Blood Transfusion Reactions: Motion Sickness Past Psychological History: Anxiety, Bipolar, Depression, PTSD Smoking Status: Former smoker Past Alcohol Use History: None Reported Past Drug Use History: None Reported - Past Family History Sister(s) Family Medical History: Cancer General Exam Limitations: no limitations General appearance: alert, in no apparent distress Head exam: Present: atraumatic, normocephalic, normal inspection Respiratory exam: Present: normal lung sounds bilaterally. Absent: respiratory distress, wheezes, rales, rhonchi, stridor Cardiovascular Exam: Present: regular rate, normal rhythm, normal heart sounds. Absent: systolic murmur, diastolic murmur, rubs, gallop, clicks Extremities exam: Present: other (Left ankle there is tenderness on the lateral malleoli region mild rebound tenderness no foot tenderness no proximal tib-fib tenderness no ecchymosis no erythema neurovascular intact) Course Vital Signs 11/01/21 14:13 Temperature 97.9 F Pulse Rate 81 Respiratory 16 Rate Blood Pressure 127/87 O2 Sat by Pulse 97 Oximetry Medical Decision Making - Medical Decision Making X-rays negative for acute fracture. Patient discharged in stable condition return parameters were discussed. Patient follow-up with orthopedics if symptoms persist. Disposition Clinical Impression: Left ankle sprain Disposition: HOME SELF-CARE Condition: Stable Instructions (If sedation given, give patient instructions): Ankle Sprain (ED) Additional Instructions: Please return to the Emergency Department if symptoms worsen or any other concerns. Prescriptions: Ibuprofen [Motrin] 800 mg PO Q6HR #30 tab Is patient prescribed a controlled substance at d/c from ED?: No Referrals: Noris Tuttle MD [Primary Care Provider] - 1-2 days Jr Christina DO [Doctor of Osteopathic Medicine] - 1-2 days Time of Disposition: 15:07
--- NOTE | 2021-11-01 14:53 | XR ---
EXAMINATION TYPE: XR ankle complete LT DATE OF EXAM: 11/01/2021 COMPARISON: NONE HISTORY: Ankle pain TECHNIQUE: 3 views FINDINGS: There is plantar calcaneal spurring. Ankle mortise is anatomic. Joint spaces are fairly nor mal. IMPRESSION: No fracture seen.
[2021-11-01] MEDS ORDERED: ACET/COD 300 MG/30 MG STARTER PACK 6 TAB BTL PO STA (15:08)
== END 2021-11-01 15:22 | disposition home or self-care (01) ==
LOC: EC 14:07
DX: S93.492A Sprain of other ligament of left ankle, initial encounter (principal); J45.909 Unspecified asthma, uncomplicated; K21.9 Gastro-esophageal reflux disease without esophagitis; E07.9 Disorder of thyroid, unspecified; F41.9 Anxiety disorder, unspecified; F31.9 Bipolar disorder, unspecified; F43.12 Post-traumatic stress disorder, chronic; Z88.0 Allergy status to penicillin; Z98.84 Bariatric surgery status; Z90.49 Acquired absence of other specified parts of digestive tract; Z87.891 Personal history of nicotine dependence; W01.0XXA Fall on same level from slipping, tripping and stumbling without subsequent striking against object, initial encounter
CPT/HCPCS: 99283

== ENCOUNTER → 2021-11-06 | Outpatient (CLI) | payer OTHER ==
--- NOTE | 2021-11-06 16:54 | US ---
EXAMINATION TYPE: US kidneys/renal and bladder DATE OF EXAM: 11/06/2021 COMPARISON: US & CT CLINICAL HISTORY: E03.9 Acquired hypothyroidism. Pt states recurrent UTI's EXAM MEASUREMENTS: Right Kidney: 12.8 x 5.3 x 4.6 cm Left Kidney: 11.6 x 5.8 x 4.6 cm Right Kidney: wnl Left Kidney: wnl Bladder: wnl Bilateral Jets seen: Only right jet visualized Incidental finding slightly enlarged spleen There is no evidence for hydronephrosis at this point in time. No nephrolithiasis is seen. No valerio s are identified. The urinary bladder is anechoic. IMPRESSION: 1. Splenomegaly measuring 16.1 cm. 2. Only the right ureteral jet is visualized.
--- NOTE | 2021-11-06 16:55 | US ---
EXAMINATION TYPE: US thyroid st tissue head/neck DATE OF EXAM: 11/06/2021 COMPARISON: NONE CLINICAL HISTORY: R30.0 Dysuria R39.0 Recurrent UTI. Pt states hypothyroid, on thyroid meds x many ye ars GLAND SIZE: Right Lobe: 3.7 x 1.0 x 1.1 cm Overall Parenchyma: heterogenous Left Lobe: 3.6 x 0.8 x 0.9 cm Overall Parenchyma: heterogeneous Isthmus Thickness: 0.3 cm NODULES RIGHT: # of nodules measured on right: 1 1. 1.1 X 0.6 x 0.9 cm, upper, Cyst, anechoic nodule, which is wider than tall, with smooth margins, without echogenic foci. Prior size: No prior LEFT: # of nodules measured on left: 1 1. 0.4 X 0.3 x 0.4 cm, upper, cyst, anechoic nodule, which is wider than tall, with smooth margins, without echogenic foci. Prior size: No prior ISTHMUS: # of nodules measured in the isthmus: 0 Bilateral neck scanned, no evidence of lymphadenopathy. Cyst within each lobe, thyroid very small- di fficult to visualize IMPRESSION: Nonspecific cystic nodules.
== END | disposition home or self-care (01) ==
LOC: RADUSWWP 15:29
PROVIDERS: ATTEND Family Medicine
DX: E04.2 Nontoxic multinodular goiter (principal); R16.1 Splenomegaly, not elsewhere classified; E03.9 Hypothyroidism, unspecified
CPT/HCPCS: 76536; 76770

== ENCOUNTER → 2022-01-14 | Outpatient (CLI) | payer OTHER ==
--- NOTE | 2022-01-14 22:05 | US ---
EXAMINATION TYPE: US abdomen complete DATE OF EXAM: 01/14/2022 COMPARISON: CT abdomen and pelvis October 13, 2020 CLINICAL HISTORY: R16.1 SPLENOMEGALY. Mildly enlarged spleen seen on renal ultrasound. GB removed. EXAM MEASUREMENTS: Liver Length: 19.8 cm CBD: 0.4 cm Spleen: 12.6 cm Right Kidney: 12.0 x 5.8 x 5.7 cm Left Kidney: 11.5 x 4.7 x 6.0 cm Pancreas: wnl Liver: Enlarged in size. Echogenic and coarse. Gallbladder: Surgically absent Evidence for sonographic Mast's sign: neg CBD: wnl Spleen: Upper limits of normal in size Right Kidney: No hydronephrosis or masses seen Left Kidney: No hydronephrosis or masses seen Upper IVC: wnl Abd Aorta: No AAA visualized at time of scan The IVC is seen near the hepatic dome. No aneurysmal change of visualized abdominal aorta. Visualized liver is diffusely hyperechoic and prominent in size. No surrounding ascites. Gallbladder surgically absent. Common bile duct is unremarkable. The visualized portions of the pancreas are homogenous. The spleen measures upper limits of normal in size. Kidneys are symmetric and free of hydronephrosi s. No renal lesions are seen. IMPRESSION: Spleen measures upper limits of normal in size. Mild hepatomegaly with diffuse fatty infi ltration of liver redemonstrated
== END | disposition home or self-care (01) ==
LOC: RADUSWWP 15:55
PROVIDERS: ATTEND Internal Medicine Gastroenterology
DX: R16.0 Hepatomegaly, not elsewhere classified (principal); K76.0 Fatty (change of) liver, not elsewhere classified
CPT/HCPCS: 76700

== ENCOUNTER → 2022-01-27 | Outpatient (CLI) | payer OTHER ==
[2022-01-28 01:01] LABS: Basophils # (A) 0.07 X 10*3/uL (0.00-0.10); Basophils % (A) 0.8 %; Eosinophils # (A) 0.22 X 10*3/uL (0.04-0.35); Eosinophils % (A) 2.5 %; HCT 44.8 % (37.2-46.3); HGB 14.6 g/dL (12.0-15.0); Immature Grans, Automated 0.3 %; Lymphocytes # (A) 2.93 X 10*3/uL (0.90-5.00); Lymphocytes % (A) 33.5 %; MCH 28.7 pg (27.0-32.0); MCHC 32.6 g/dL (32.0-37.0); Monocytes # (A) 0.67 X 10*3/uL (0.20-1.00); Monocytes % (A) 7.7 %; NRBC Per 100 WBC 0 /100 WBCS (0.0-0.0); Neutrophils # (A) 4.83 X 10*3/uL (1.80-7.70); Neutrophils % (A) 55.2 %; Platelet Count 294 X 10*3/uL (140-440); RBC 5.09 X 10*6/uL (4.10-5.20); RDW 12.2 % (11.5-14.5); WBC 8.75 X 10*3/uL (4.50-10.00)
[2022-01-28 03:33] LABS: African American GFR (CKD) 108.4 (60.0-200.0); Albumin 4.6 g/dL (3.8-4.9); Albumin/Globulin Ratio 1.64 (1.60-3.17); Anion Gap 15.8 mmol/L (10.00-18.00); BUN/Creat Ratio 9.38 Ratio (12.00-20.00); Blood Urea Nitrogen 7.5 mg/dL (9.0-27.0); Calcium 9.5 mg/dL (8.7-10.3); Carbon Dioxide 17.2 mmol/L (20.0-27.5); Globulin 2.8 g/dL (1.6-3.3); Non-African American GFR(CKD) 93.5 (60.0-200.0); Potassium 3.9 mmol/L (3.5-5.5); Total Bilirubin 0.3 mg/dL (0.30-1.20); Total Protein 7.4 g/dL (6.2-8.2)
== END | disposition home or self-care (01) ==
LOC: LABWHC1 15:11
PROVIDERS: ATTEND Internal Medicine Gastroenterology
DX: R16.1 Splenomegaly, not elsewhere classified (principal)
CPT/HCPCS: 36415; 80053; 85025

== ENCOUNTER → 2022-01-27 | Outpatient (CLI) | payer OTHER ==
--- NOTE | 2022-01-27 19:58 | XR ---
EXAMINATION TYPE: XR lumbosacral spine min 4V DATE OF EXAM: 01/27/2022 CLINICAL HISTORY: Low back pain after slip and fall injury. TECHNIQUE: Frontal, lateral, and oblique images of the lumbar spine are obtained. COMPARISON: Lumbar spine x-ray May 20, 2021 FINDINGS: There are 5 lumbar type vertebral bodies redemonstrated. The lumbar spine shows stable an d satisfactory alignment without evidence of acute fracture or dislocation. Vertebral body heights an d disk space heights remain within normal limits. Mild anterior spurring in the lower lumbar spine i s redemonstrated. The oblique images appear within normal limits. Cholecystectomy clips are redemonst rated. There is overlying ventricular shunt catheter again seen. IMPRESSION: As above. No significant change from prior.
--- NOTE | 2022-01-27 19:59 | XR ---
EXAMINATION TYPE: XR sacrum coccyx DATE OF EXAM: 01/27/2022 COMPARISON: CT abdomen and pelvis October 13, 2020 HISTORY: Fall injury with pain TECHNIQUE: 2 views of sacrum and coccyx. FINDINGS: No acute displaced sacral or coccygeal fracture. Sacral alar are intact. Overlying ventricu lar shunt catheter redemonstrated with occasional scattered pelvic phleboliths. IMPRESSION: As above.
== END | disposition home or self-care (01) ==
LOC: RADXRMAIN 15:57
PROVIDERS: ATTEND Family Medicine
DX: M25.78 Osteophyte, vertebrae (principal); I87.8 Other specified disorders of veins; Z90.49 Acquired absence of other specified parts of digestive tract
CPT/HCPCS: 72110; 72220

== ENCOUNTER → 2022-03-12 | Outpatient (CLI) | payer OTHER ==
--- NOTE | 2022-03-13 02:38 | MR ---
EXAMINATION TYPE: MR ankle LT wo con DATE OF EXAM: 03/12/2022 COMPARISON: None HISTORY: Left ankle pain, and swelling due to slip and fall. There is some increased fluid signal in the medial dome of the talus. The ankle mortise is anatomic. The collateral ligaments appear intact. Achilles tendon is intact. The medial and lateral flexor tend ons are intact. The subtalar joint appears normal. Plantar fascia appears intact. There is ankle join t effusion and subtalar joint effusion. IMPRESSION: No evidence of ligamentous or tendon tear. There is evidence of a bone bruise involving the medial do me of the talus. This could be a focus of developing osteochondritis dissecans. No definite fracture seen. Ankle joint effusion and subtalar effusion consistent with some synovitis.
== END | disposition home or self-care (01) ==
LOC: RADMRIMAIN 16:48
PROVIDERS: ATTEND Podiatrist Foot & Ankle Surgery
DX: S90.01XA Contusion of right ankle, initial encounter (principal); M25.472 Effusion, left ankle

== ENCOUNTER 2022-08-20 18:17 | Emergency (ER) | payer OTHER ==
[2022-08-20 19:23] VITALS: BP 142/98; PULSE 72; RESP 18; TEMP 98.7
--- NOTE | 2022-08-20 22:34 | ED ---
General Adult HPI - General Chief complaint: Abdominal Pain Stated complaint: abd pain Time Seen by Provider: 08/20/22 20:23 Source: patient Mode of arrival: ambulatory Limitations: no limitations - History of Present Illness Initial comments: This is a 36-year-old female presents emergency department for abdominal pain. The patient stated that she thought her abdominal pain started yesterday after she had coffee creamer with lactose in it. The patient stated that she does have lactose intolerance and has had abdominal pain similar to this in the past but stated that it does not continue to be as sore. The patient was concerned about this lower quadrant abdominal pain that has been present since yesterday so she came to the emergency department. The patient denied any nausea or vomiting. States she had one episode of diarrhea yesterday when the symptoms started. The patient denied any fevers, chills as well as any nausea and vomiting. The patient was resting in bed comfortably without any further acute distress. - Related Data Home Medications Medication Instructions Recorded Confirmed Albuterol Nebulized [Ventolin 2.5 mg INHALATION RT-Q8H PRN 03/06/20 10/13/20 Nebulized] Famotidine [Pepcid] 20 mg PO HS 03/06/20 10/13/20 Levothyroxine Sodium [Levoxyl] 137 mcg PO DAILY 03/06/20 10/13/20 Ergocalciferol (Vitamin D2) 1,250 mcg PO SUMO 10/13/20 10/13/20 [Vitamin D2 (50,000 units)] HYDROcodone/APAP 5-325MG [[place] 1 tab PO Q6H PRN 10/13/20 10/13/20 5-325] Ibuprofen [Motrin] 600 mg PO TID PRN 10/13/20 10/13/20 Unknown Inhaler 1 puff INHALATION RT-DAILY 10/13/20 10/13/20 Previous Rx's Medication Instructions Recorded Lidocaine [Lidoderm 5% Patch] 1 patch TRANSDERM DAILY 5 Days #5 04/19/21 patch Naproxen [EC-Naprosyn] 500 mg PO BID PRN #30 tablet. 05/20/21 Orphenadrine [Norflex] 100 mg PO Q12H PRN #10 tablet.er 05/20/21 Ibuprofen [Motrin] 800 mg PO Q6HR #30 tab 01/30/22 Allergies Allergy/AdvReac Type Severity Reaction Status Date / Time bee venom protein (honey bee) Allergy Dyspnea Verified 08/20/22 19:22 cortisone Allergy SEVERE Verified 08/20/22 19:22 ABDOMINAL PAIN hydrocortisone Allergy Rash/Hives Verified 08/20/22 19:22 Penicillins Allergy Rash/Hives Verified 08/20/22 19:22 Review of Systems ROS Statement: Those systems with pertinent positive or pertinent negative responses have been documented in the HPI. ROS Other: All systems not noted in ROS Statement are negative. 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 Irregular heartbeat. History of Any Multi-Drug Resistant Organisms: None Reported Past Surgical History: Breast Surgery, Cholecystectomy Additional Past Surgical History / Comment(s): Breast reduction, eye surgery - sheaths placed bilaterally. Past Anesthesia/Blood Transfusion Reactions: Motion Sickness Past Psychological History: Anxiety, Bipolar, Depression, PTSD Smoking Status: Former smoker Past Alcohol Use History: None Reported Past Drug Use History: None Reported - Past Family History Sister(s) Family Medical History: Cancer General Exam Limitations: no limitations General appearance: alert, in no apparent distress Head exam: Present: atraumatic, normocephalic Eye exam: Present: normal appearance, PERRL, EOMI Pupils: Present: normal accommodation ENT exam: Present: normal exam, normal oropharynx, mucous membranes moist Neck exam: Present: normal inspection, full ROM Respiratory exam: Present: normal lung sounds bilaterally Cardiovascular Exam: Present: regular rate, normal rhythm, normal heart sounds GI/Abdominal exam: Present: soft, tenderness (Tenderness noted on the left lower quadrant as well as the suprapubic region) Rectal exam: Present: deferred Extremities exam: Present: normal inspection, full ROM Back exam: Present: normal inspection, full ROM Neurological exam: Present: alert, oriented X3, CN II-XII intact Psychiatric exam: Present: normal affect, normal mood Skin exam: Present: warm, dry Course Vital Signs 08/20/22 19:21 Temperature 98.7 F Pulse Rate 72 Respiratory 18 Rate Blood Pressure 142/98 O2 Sat by Pulse 100 Oximetry Medical Decision Making - Medical Decision Making The patient was seen and evaluated in the emergency department. On physical exam, the patient was resting in bed without any acute distress. Vital signs were stable. Laboratory workup was ordered as was a CT abdomen and pelvis with contrast. The patient was awaiting the laboratory draw as well as the computed tomography scan when she abruptly told the nurse that she had to work and was leaving. I was in with another patient and was not made aware of this until the patient was removed from the board. The patient eloped from the emergency department in stable condition. Disposition Clinical Impression: Abdominal pain Disposition: Left Against Medical Advice Condition: Stable Is patient prescribed a controlled substance at d/c from ED?: No Referrals: Noris Tuttle MD [Primary Care Provider] - 1-2 days Time of Disposition: 22:06 (Patient eloped)
== END 2022-08-20 22:08 | disposition left against medical advice (07) ==
LOC: EC 18:17
DX: R10.32 Left lower quadrant pain (principal); J45.909 Unspecified asthma, uncomplicated; E07.9 Disorder of thyroid, unspecified; F41.9 Anxiety disorder, unspecified; F31.9 Bipolar disorder, unspecified; Z87.891 Personal history of nicotine dependence; Z88.0 Allergy status to penicillin; Z91.030 Bee allergy status; Z88.8 Allergy status to other drugs, medicaments and biological substances; Z79.51 Long term (current) use of inhaled steroids; Z79.890 Hormone replacement therapy; Z79.899 Other long term (current) drug therapy; Z53.29 Procedure and treatment not carried out because of patient's decision for other reasons
CPT/HCPCS: 99283

== ENCOUNTER → 2022-10-08 | Outpatient (CLI) | payer OTHER ==
--- NOTE | 2022-10-08 15:29 | US ---
EXAMINATION TYPE: US pelvis complete transvag DATE OF EXAM: 10/08/2022 COMPARISON: NONE CLINICAL HISTORY: PELVIC PAIN R10.2. pain TECHNIQUE: Transvaginal (TV) and Transabdominal (TA) . EXAM MEASUREMENTS: Uterus: 8.2 x 4.9 x 6.0 cm Endometrial Stripe: 1.1 cm Right Ovary: 2.9 x 1.3 x 2.3 cm Left Ovary: 2.8 x 2.6 x 3.6 cm 1. Uterus: Retroverted wnl 2. Endometrium: wnl 3. Right Ovary: wnl 4. Left Ovary: Cystic area seen 1.4 x 2.0 x 2.5 cm. Consistent with a dominant follicle. 5. Bilateral Adnexa: wnl 6. Posterior cul-de-sac: wnl IMPRESSION: No acute pelvic process.
== END | disposition home or self-care (01) ==
LOC: RADUSWWP 14:47
PROVIDERS: ATTEND Obstetrics & Gynecology
DX: R10.2 Pelvic and perineal pain (principal)
CPT/HCPCS: 76830; 76856

== ENCOUNTER 2022-10-18 10:00 | Emergency (ER) | payer OTHER ==
[2022-10-18] MEDS ORDERED: ONDANSETRON 4 MG/2 ML VIAL IVP STA (10:36)
[2022-10-18] MEDS ORDERED: SODIUM CHLORIDE 0.9% 1,000 ML IV STA (10:36)
[2022-10-18] MEDS ORDERED: KETOROLAC 15 MG/ML 1 ML VIAL IVP STA (10:37)
--- NOTE | 2022-10-18 11:37 | US ---
EXAMINATION TYPE: US abdomen limited DATE OF EXAM: 10/18/2022 COMPARISON: Abdominal ultrasound 01/14/2022 CLINICAL HISTORY: RUQ pain. pain all over, but within right shoulder and back pain TECHNIQUE: Multiple sonographic images of the right upper quadrant are obtained. FINDINGS: EXAM MEASUREMENTS: Liver Length: 20.1 cm Gallbladder Wall: Surgically absent CBD: 0.6 cm Right Kidney: 12.7 x 4.7 x 5.2 cm CONSERVATION EDUCATOR NOTES:large habitus and bowel gas limits exam Pancreas: wnl Liver: difficult to penetrate and enlarged Gallbladder: Surgically absent CBD: wnl Right Kidney: wnl The visualized portions of the fingers unremarkable. The liver is enlarged and difficult to penetrate with diffusely hyperechoic echotexture. No focal lesion. Gallbladder surgically absent. Common bile duct within normal limits. The right kidney is unremarkable without evidence of hydronephrosis, shado wing calculi, or contour deforming solid mass. IMPRESSION: 1. Hepatomegaly with diffuse fatty infiltration redemonstrated. 2. Postcholecystectomy.
[2022-10-18 11:38] LABS: Basophils % (A) 1 %; Eosinophils % (A) 0 %; HCT 42.9 % (34.0-46.0); HGB 14.6 gm/dL (11.4-16.0); Lymphocytes # (A) 0.8 k/uL (1.0-4.8); Lymphocytes % (A) 21 %; MCHC 34.1 g/dL (31.0-37.0); MCV 87.9 fL (80.0-100.0); Mean Platelet Volume 7.7; Monocytes # (A) 0.4 k/uL (0-1.0); Monocytes % (A) 12 %; Neutrophils # (A) 2.4 k/uL (1.3-7.7); Neutrophils % (A) 64 %; Platelet Count 176 k/uL (150-450); RBC 4.88 m/uL (3.80-5.40); RDW 12.6 % (11.5-15.5); WBC 3.8 k/uL (3.8-10.6)
--- NOTE | 2022-10-18 11:41 | ED ---
Nausea/Vomiting/Diarrhea HPI - General Chief complaint: Nausea/Vomiting/Diarrhea Stated complaint: rt shoulder & back pain Time Seen by Provider: 10/18/22 10:25 Source: patient, family Mode of arrival: ambulatory Limitations: no limitations - History of Present Illness Initial comments: Patient is a 37-year-old female who presents to the emergency department with a chief complaint of back pain. Patient states for the past couple days she has had daily chills, nausea, vomiting, and diarrhea. Today she woke up from sleep with pain in her mid back. She denies injury. There is radiation down her right side. Patient has chronic shoulder pain, reports pain in this region as well. She took Tylenol with little relief. She denies chest pain and shortness of breath. No upper respiratory symptoms, abdominal pain, burning with urination, blood in the urine. Denies tobacco and alcohol use. Patient does have history of acute pancreatitis and cholecystectomy. - Related Data Home Medications Medication Instructions Recorded Confirmed Albuterol Nebulized [Ventolin 2.5 mg INHALATION RT-Q8H PRN 03/06/20 10/18/22 Nebulized] Cyclobenzaprine [Flexeril] 10 mg PO DAILY PRN 10/18/22 10/18/22 Fluticasone Propionate 220 Mcg 2 puff INHALATION RT-BID 10/18/22 10/18/22 [Flovent 220 Mcg Inhaler] Levothyroxine Sodium [Synthroid] 200 mcg PO DAILY 10/18/22 10/18/22 Loratadine [Claritin] 10 mg PO DAILY 10/18/22 10/18/22 Omeprazole 20 mg PO DAILY 10/18/22 10/18/22 busPIRone HCl [Buspar] 10 mg PO BID 10/18/22 10/18/22 Previous Rx's Medication Instructions Recorded Ibuprofen [Motrin] 800 mg PO Q8HR PRN #30 tab 10/18/22 Ondansetron Odt [Zofran Odt] 4 mg PO Q8HR PRN #10 tab 10/18/22 Allergies Allergy/AdvReac Type Severity Reaction Status Date / Time bee venom protein (honey bee) Allergy Dyspnea Verified 10/18/22 12:13 hydrocortisone Allergy Rash/Hives Verified 10/18/22 12:13 Penicillins Allergy Rash/Hives Verified 10/18/22 12:13 cortisone AdvReac SEVERE Verified 10/18/22 12:13 ABDOMINAL PAIN Review of Systems ROS Statement: Those systems with pertinent positive or pertinent negative responses have been documented in the HPI. ROS Other: All systems not noted in ROS Statement are negative. 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 Irregular heartbeat. History of Any Multi-Drug Resistant Organisms: None Reported Past Surgical History: Breast Surgery, Cholecystectomy Additional Past Surgical History / Comment(s): Breast reduction, eye surgery - sheaths placed bilaterally. Past Anesthesia/Blood Transfusion Reactions: Motion Sickness Past Psychological History: Anxiety, Bipolar, Depression, PTSD Smoking Status: Former smoker Past Alcohol Use History: None Reported Past Drug Use History: Marijuana - Past Family History Sister(s) Family Medical History: Cancer General Exam Limitations: no limitations General appearance: alert, in no apparent distress Head exam: Present: atraumatic, normocephalic, normal inspection Respiratory exam: Present: normal lung sounds bilaterally. Absent: respiratory distress, wheezes, rales, rhonchi, stridor Cardiovascular Exam: Present: regular rate, normal rhythm, normal heart sounds. Absent: systolic murmur, diastolic murmur, rubs, gallop, clicks GI/Abdominal exam: Present: soft, tenderness (RUQ), normal bowel sounds. Absent: distended, guarding, rebound, rigid Extremities exam: Present: normal capillary refill Back exam: Absent: CVA tenderness (R), CVA tenderness (L), paraspinal tenderness, vertebral tenderness Neurological exam: Present: alert, oriented X3, CN II-XII intact Psychiatric exam: Present: normal affect, normal mood Skin exam: Present: warm, dry, intact, normal color. Absent: rash Course Vital Signs 10/18/22 10/18/22 10/18/22 10:27 11:27 12:53 Temperature 100.2 F H 98.6 F Pulse Rate 90 94 70 Respiratory 18 18 16 Rate Blood Pressure 157/98 119/79 120/81 O2 Sat by Pulse 96 93 L 98 Oximetry Medical Decision Making - Medical Decision Making Was pt. sent in by a medical professional or institution (, PA, EMBEDDED FIRMWARE DEVELOPER, urgent care, hospital, or [facility]...) When possible be specific @ -[No] Did you speak to anyone other than the patient for history (EMS, parent, family, police, friend...)? What history was obtained from this source @ -[No] Did you review nursing and triage notes (agree or disagree)? Why? @ -[I reviewed and agree with nursing and triage notes] Were old charts reviewed (outside hosp., previous admission, EMS record, old EKG, old radiological studies, urgent care reports/EKG's, [facility] records)? Report findings @ -[No old charts were reviewed] Differential Diagnosis (chest pain, altered mental status, abdominal pain women, abdominal pain men, vaginal bleeding, weakness, fever, dyspnea, syncope, headache, dizziness, GI bleed, back pain, seizure, CVA, palpatations, mental health)? @ -Influenza, gastroenteritis, covid-19 EKG interpreted by me (3pts min.). @ -[As above] X-rays interpreted by me (1pt min.). @ -[None done] CT interpreted by me (1pt min.). @ -[None done] U/S interpreted by me (1pt. min.). @ -[None done] What testing was considered but not performed or refused? (CT, X-rays, U/S, labs)? Why? @ -[None] What meds were considered but not given or refused? Why? @ -[None] Did you discuss the management of the patient with other professionals (professionals i.e. , PA, EMBEDDED FIRMWARE DEVELOPER, lab, RT, psych nurse, social sciences instructor, live out nanny, teacher, immigration services officer, employment evaluator/case manager)? Give summary @ -[No] Was smoking cessation discussed for >3mins.? @ -[No] Was critical care preformed (if so, how long)? @ -[No] Were there social determinants of health that impacted care today? How? (Homelessness, low income, unemployed, alcoholism, drug addiction, transportation, low edu. Level, literacy, decrease access to med. care, correction, rehab)? @ -[No] Was there de-escalation of care discussed even if they declined (Discuss DNR or withdrawal of care, Hospice)? DNR status @ -[No] What co-morbidities impacted this encounter? (DM, HTN, Smoking, COPD, CAD, Cancer, CVA, ARF, Chemo, Hep., AIDS, mental health diagnosis, sleep apnea, morbid obesity)? @ -[None] Was patient admitted / discharged? Hospital course, mention meds given and route, prescriptions, significant lab abnormalities, going to OR and other pertinent info. @ -This is a 37-year-old female presenting with n/v/d and back pain. Patient is febrile 100.2F. There is no tenderness of the paravertebral muscles or vertebrae. No CVA tenderness. She does have mild tenderness in the right upper quadrant. Laboratory studies obtained. There is no leukocytosis. COVID-19 is detected. Ultrasound shows hepatomegaly with diffuse fatty infiltration. Results discussed with patient. Patient feeling much better after one dose of Toradol. She will be discharged with Motrin and Zofran. Quarantine instructions discussed. Undiagnosed new problem with uncertain prognosis? @ -[No] Drug Therapy requiring intensive monitoring for toxicity (Heparin, Nitro, Insulin, Cardizem)? @ -[No] Were any procedures done? @ -[No] Diagnosis/symptom? @ -covid-19 Acute, or Chronic, or Acute on Chronic? @ -acute Uncomplicated (without systemic symptoms) or Complicated (systemic symptoms)? @ -[default] Side effects of treatment? @ -[No] Exacerbation, Progression, or Severe Exacerbation? @ -[No] Poses a threat to life or bodily function? How? (Chest pain, [place], MA, pneumonia, PE, COPD, DKA, ARF, appy, cholecystitis, CVA, Diverticulitis, Homicidal, Suicidal, threat to staff... and all critical care pts) @ -[No] Dr. Cevallos is my attending. - Lab Data Result diagrams: 10/18/22 11:06 10/18/22 11:06 Lab Results 10/18/22 10/18/22 10/18/22 Range/Units 10:40 11:06 11:06 WBC 3.8 (3.8-10.6) k/uL RBC 4.88 (3.80-5.40) m/uL Hgb 14.6 (11.4-16.0) gm/dL Hct 42.9 (34.0-46.0) % MCV 87.9 (80.0-100.0) fL MCH 30.0 (25.0-35.0) pg MCHC 34.1 (31.0-37.0) g/dL RDW 12.6 (11.5-15.5) % Plt Count 176 (150-450) k/uL MPV 7.7 Neutrophils % 64 % Lymphocytes % 21 % Monocytes % 12 % Eosinophils % 0 % Basophils % 1 % Neutrophils # 2.4 (1.3-7.7) k/uL Lymphocytes # 0.8 L (1.0-4.8) k/uL Monocytes # 0.4 (0-1.0) k/uL Eosinophils # 0.0 (0-0.7) k/uL Basophils # 0.0 (0-0.2) k/uL Sodium (137-145) mmol/L Potassium (3.5-5.1) mmol/L Chloride (98-107) mmol/L Carbon Dioxide (22-30) mmol/L Anion Gap mmol/L BUN (7-17) mg/dL Creatinine (0.52-1.04) mg/dL Est GFR (CKD-EPI)AfAm (>60 ml/min/1.73 sqM) Est GFR (CKD-EPI)NonAf (>60 ml/min/1.73 sqM) Glucose (74-99) mg/dL Calcium (8.4-10.2) mg/dL Magnesium (1.6-2.3) mg/dL Total Bilirubin (0.2-1.3) mg/dL AST (14-36) U/L ALT (4-34) U/L Alkaline Phosphatase (38-126) U/L Total Protein (6.3-8.2) g/dL Albumin (3.5-5.0) g/dL Lipase (23-300) U/L Urine Color Yellow Urine Appearance Cloudy H (Clear) Urine pH 5.5 (5.0-8.0) Ur Specific Globe 1.024 (1.001-1.035) Urine Protein 1+ H (Negative) Urine Glucose (UA) Negative (Negative) Urine Ketones 2+ H (Negative) Urine Blood Small H (Negative) Urine Nitrite Negative (Negative) Urine Bilirubin Negative (Negative) Urine Urobilinogen <2.0 (<2.0) mg/dL Ur Leukocyte Esterase Negative (Negative) Urine RBC 1 (0-5) /hpf Urine WBC 5 (0-5) /hpf Ur Squamous Epith Cells 20 H (0-4) /hpf Urine Bacteria Rare H (None) /hpf Urine Mucus Many H (None) /hpf Influenza Type A (PCR) Not Detected (Not Detectd) Influenza Type B (PCR) Not Detected (Not Detectd) RSV (PCR) Not Detected (Not Detectd) SARS-CoV-2 (PCR) Detected A (Not Detectd) 10/18/22 Range/Units 11:06 WBC (3.8-10.6) k/uL RBC (3.80-5.40) m/uL Hgb (11.4-16.0) gm/dL Hct (34.0-46.0) % MCV (80.0-100.0) fL MCH (25.0-35.0) pg MCHC (31.0-37.0) g/dL RDW (11.5-15.5) % Plt Count (150-450) k/uL MPV Neutrophils % % Lymphocytes % % Monocytes % % Eosinophils % % Basophils % % Neutrophils # (1.3-7.7) k/uL Lymphocytes # (1.0-4.8) k/uL Monocytes # (0-1.0) k/uL Eosinophils # (0-0.7) k/uL Basophils # (0-0.2) k/uL Sodium 139 (137-145) mmol/L Potassium 4.0 (3.5-5.1) mmol/L Chloride 106 (98-107) mmol/L Carbon Dioxide 23 (22-30) mmol/L Anion Gap 10 mmol/L BUN 9 (7-17) mg/dL Creatinine 0.66 (0.52-1.04) mg/dL Est GFR (CKD-EPI)AfAm >90 (>60 ml/min/1.73 sqM) Est GFR (CKD-EPI)NonAf >90 (>60 ml/min/1.73 sqM) Glucose 89 (74-99) mg/dL Calcium 8.9 (8.4-10.2) mg/dL Magnesium 2.0 (1.6-2.3) mg/dL Total Bilirubin 0.5 (0.2-1.3) mg/dL AST 52 H (14-36) U/L ALT 59 H (4-34) U/L Alkaline Phosphatase 57 (38-126) U/L Total Protein 7.1 (6.3-8.2) g/dL Albumin 4.4 (3.5-5.0) g/dL Lipase 112 (23-300) U/L Urine Color Urine Appearance (Clear) Urine pH (5.0-8.0) Ur Specific [place] (1.001-1.035) Urine Protein (Negative) Urine Glucose (UA) (Negative) Urine Ketones (Negative) Urine Blood (Negative) Urine Nitrite (Negative) Urine Bilirubin (Negative) Urine Urobilinogen (<2.0) mg/dL Ur Leukocyte Esterase (Negative) Urine RBC (0-5) /hpf Urine WBC (0-5) /hpf Ur Squamous Epith Cells (0-4) /hpf Urine Bacteria (None) /hpf Urine Mucus (None) /hpf Influenza Type A (PCR) (Not Detectd) Influenza Type B (PCR) (Not Detectd) RSV (PCR) (Not Detectd) SARS-CoV-2 (PCR) (Not Detectd) Disposition Clinical Impression: COVID-19, Back pain Disposition: HOME SELF-CARE Condition: Good Instructions (If sedation given, give patient instructions): Coronavirus Disease 2019 (COVID-19) Additional Instructions: Take medication as directed. Increase fluid intake. Quarantine at home for 5 days. Return to the emergency department if you experience new, concerning, or worsening symptoms. Prescriptions: Ibuprofen [Motrin] 800 mg PO Q8HR PRN #30 tab PRN Reason: Pain Ondansetron Odt [Zofran Odt] 4 mg PO Q8HR PRN #10 tab PRN Reason: Nausea Is patient prescribed a controlled substance at d/c from ED?: No Referrals: Noris Tuttle MD [Primary Care Provider] - 1-2 days Time of Disposition: 12:11
[2022-10-18 11:47] LABS: Appearance,Urine Cloudy (Clear); Bacteria,Urine Rare /hpf; Bilirubin,Urine Negative (Negative); Blood,Urine Small (Negative); Color,Urine Yellow; Glucose,Urine (UA) Negative (Negative); Ketones,Urine 2+ (Negative); Leukocyte Esterase,Urine Negative (Negative); Mucus,Urine Many /hpf; Nitrite,Urine Negative (Negative); PH, Urine 5.5 (5.0-8.0); Protein,Urine 1+ (Negative); RBC,Urine 1 /hpf (0-5); Specific Gravity,Urine 1.024 (1.001-1.035); Squamous Epithelial Cell,Urine 20 /hpf (0-4); Urobilinogen,Urine <2.0 mg/dL (<2.0); WBC,Urine 5 /hpf (0-5)
[2022-10-18 11:51] LABS: ALT 59 U/L (4-34); AST 52 U/L (14-36); African American GFR (CKD) >90 (>60 ml/min/1.73 sqM); Albumin 4.4 g/dL (3.5-5.0); Alkaline Phosphatase 57 U/L (38-126); Anion Gap 10 mmol/L; Blood Urea Nitrogen 9 mg/dL (7-17); Calcium 8.9 mg/dL (8.4-10.2); Carbon Dioxide 23 mmol/L (22-30); Chloride 106 mmol/L (98-107); Glucose 89 mg/dL (74-99); Lipase 112 U/L (23-300); Non-African American GFR(CKD) >90 (>60 ml/min/1.73 sqM); Sodium 139 mmol/L (137-145); Total Bilirubin 0.5 mg/dL (0.2-1.3); Total Protein 7.1 g/dL (6.3-8.2)
[2022-10-18 12:55] VITALS: BP 120/81; PULSE 70; RESP 16; TEMP 98.6
== END 2022-10-18 12:53 | disposition home or self-care (01) ==
LOC: EC 10:00
DX: U07.1 COVID-19 (principal); J45.909 Unspecified asthma, uncomplicated; K21.9 Gastro-esophageal reflux disease without esophagitis; E07.9 Disorder of thyroid, unspecified; F41.9 Anxiety disorder, unspecified; F31.9 Bipolar disorder, unspecified; F12.90 Cannabis use, unspecified, uncomplicated; Z79.890 Hormone replacement therapy; Z79.899 Other long term (current) drug therapy; Z88.8 Allergy status to other drugs, medicaments and biological substances; Z87.891 Personal history of nicotine dependence; Z88.0 Allergy status to penicillin; Z91.030 Bee allergy status
CPT/HCPCS: 36415; 80053; 83690; 83735; 85025; 81001; 87636; 76705; 99284; 96374; 96375; 96361; J2405; J1885

== ENCOUNTER 2022-10-26 05:59 | Day surgery (SDC) | payer OTHER ==
[2022-10-22 13:35] VITALS: BMI 49.1
[2022-10-26 06:33] VITALS: TEMP 97
[2022-10-26] MEDS: LACTATED RINGERS 1,000 ML IV SCH ×2 (07:00→07:02)
[2022-10-26] MEDS ORDERED: LIDOCAINE 2% INJ 20 MG/ML (2 ML VIAL) ONE (07:02)
[2022-10-26] MEDS ORDERED: PROPOFOL 10 MG/ML 20 ML VIAL IV ONE (07:02)
[2022-10-26] MEDS ORDERED: fentaNYL (PF) 50 MCG/ML 2 ML AMP ONE (07:02)
[2022-10-26] MEDS ORDERED: MIDAZOLAM 2 MG/2 ML VIAL ONE (07:02)
--- NOTE | 2022-10-26 07:18 | P.PCN ---
Date of Procedure: 10/26/22 Procedure(s) Performed: Brief history: Patient is a pleasant 37-year-old white female scheduled for an elective upper endoscopy as well as colonoscopy as a part of evaluation of abdominal pain mostly in the epigastric area radiating to the left lower abdominal area associated with intermittent nausea vomiting and change in bowel habits for the last 3 months duration. Procedure performed: Esophagogastroduodenoscopy with biopsy Attempted Colonoscopy Preoperative diagnosis: Abdominal pain/intermittent nausea vomiting Change in bowel habits Anesthesia: MAC Procedure: After informed consent was obtained from the patient was brought into the endoscopy unit and IV sedation was administered by anesthesia under continuous monitoring. Initially upper endoscopy was done. The Olympus GF 160 video endoscope was inserted inserted into the mouth and esophagus intubated without any difficulty and was gradually advanced into the stomach and duodenum and carefully examined. The bulb and second part of the duodenum appeared normal. Biopsies were done from the duodenum to rule out celiac disease. The scope was then withdrawn into the stomach adequately insufflated with air and upon careful examination the antrum mild gastritis and biopsies were done from this area. Mucosa of the body, cardia and fundus appeared normal. The scope was then withdrawn into the esophagus. The GE junction was located at 40 cm to the incisors. It appeared regulinear erosions in the distal esophagus consistent w ith LA grade B reflux esophagitis.est of the esophagus appeared normal. Patient tolerated the procedure well. At this time the patient continued to remain sedation. Initial digital rectal examrevealed solid stool.Jamgle CF 160 video colonoscope was then inserted into the rectum and gradually advanced to the sigmoid: There was solid stool encountered. The procedure was terminated.. Patient tolerated the procedure well. Impression: 1. Upper endoscopy revealed linear erosions in the distal esophagus consistent with LA grade B reflux esophagitis and mild antral gastritis 2. Ccolonoscopy aborted because of solid stool in the rectum/poor prep Recommendations: Findings of this examination were discussed with the patient as well as a family. She was advised to follow with the biopsy results. continue with current medications. Recommend to reschedule of colonoscopy with a 2 day prep next few weeks.
[2022-10-26 07:42] VITALS: RESP 16
[2022-10-26 08:32] VITALS: BP 146/94; PULSE 71
== END 2022-10-26 10:00 | disposition home or self-care (01) ==
LOC: ORWHC2ENDO 05:59
PROVIDERS: ATTEND Internal Medicine Gastroenterology
DX: K29.50 Unspecified chronic gastritis without bleeding (principal); K31.89 Other diseases of stomach and duodenum; K21.00 Gastro-esophageal reflux disease with esophagitis, without bleeding; I44.0 Atrioventricular block, first degree; E78.5 Hyperlipidemia, unspecified; J45.909 Unspecified asthma, uncomplicated; Z87.891 Personal history of nicotine dependence; E07.9 Disorder of thyroid, unspecified; Z79.890 Hormone replacement therapy; F32.A Depression, unspecified; F43.10 Post-traumatic stress disorder, unspecified; G43.909 Migraine, unspecified, not intractable, without status migrainosus; Z88.8 Allergy status to other drugs, medicaments and biological substances; Z88.0 Allergy status to penicillin; Z91.030 Bee allergy status; R16.1 Splenomegaly, not elsewhere classified; Z79.1 Long term (current) use of non-steroidal anti-inflammatories (NSAID); Z79.51 Long term (current) use of inhaled steroids; Z79.899 Other long term (current) drug therapy
CPT/HCPCS: 81025; 88305; 88342; 45378; 43239; J2250; J3010; J2704; J2001

== ENCOUNTER → 2023-03-01 | Outpatient (CLI) | payer OTHER ==
--- NOTE | 2023-03-02 08:50 | XR ---
EXAMINATION TYPE: XR chest 2V DATE OF EXAM: 03/01/2023 COMPARISON: 11/11/2019 HISTORY: 37-year-old female G9 3.2, benign intracranial hypertension TECHNIQUE: Frontal and lateral views FINDINGS: The cardiomediastinal silhouette, aorta, and pulmonary vasculature are within normal limits. Lungs an d pleural spaces are clear. A right-sided shunt catheter terminates at the level of the michael. IMPRESSION: No acute cardiopulmonary process. Right-sided shunt catheter terminating at the level of the michael.
--- NOTE | 2023-03-02 08:56 | XR ---
EXAMINATION TYPE: XR abdomen 2V DATE OF EXAM: 03/01/2023 CLINICAL DATA: 37-year-old female G9 3.2, benign intracranial hypertension, PHH COMPARISON: None FINDINGS: Shunt catheter extends from the midline chest down along the upper abdomen. By the midabdom en, and courses along the left paramedian region. As it enters the pelvis, it courses into the right side of the pelvis and loops once in the central pelvis. Surgical clip in the right side of the pelvi s. Small pelvic phlebolith. Nonobstructive bowel gas pattern. Cholecystectomy clips. We note that the the catheter was obscured beyond the level of the michael on the patient's chest radi ograph due to the degree of penetration. IMPRESSION: BUTTON SEWER HAND shunt catheter courses down the mid chest and upper midabdomen. At the level of the pe lvis, it veers to the right and then loops once in the central pelvis. Nonobstructive bowel gas patte rn. Note that the catheter could not be followed beyond the level of the michael on the patient's ches t radiograph due to the degree of penetration.
--- NOTE | 2023-03-02 09:09 | XR ---
EXAMINATION TYPE: XR skull limited DATE OF EXAM: 03/01/2023 COMPARISON: NONE HISTORY: 37-year-old female G9 3.2, benign intracranial hypertension. TECHNIQUE: 2 views FINDINGS: There is a right-sided CUR[employer]STRUCTION SPECIALIST shunt catheter which enters along the frontoparietal junction. Th e catheter courses down the right side of the neck. No evident discontinuity along the radiopaque por tions. IMPRESSION: Right frontoparietal CUR[employer] INSTRUCTION SPECIALIST shunt catheter.
--- NOTE | 2023-03-02 09:31 | CT ---
EXAMINATION TYPE: CT brain wo con CT DLP: 1225 mGycm, Automated exposure control for dose reduction was used. DATE OF EXAM: 03/01/2023 4:09 PM COMPARISON: 10/23/2018 MRI, 08/01/2018 CLINICAL INDICATION:Female, 37 years old with history of G93.2 BENIGN INTRACRANIAL HYPERTENSION, Shun t placed 2019, vertigo and dizziness TECHNIQUE: Brain: Axial CT images of the brain were obtained with coronal and sagittal reformats created and rev iewed. Contrast used: None. Oral contrast used: None. FINDINGS: Brain: Extra-axial spaces: No abnormal extra-axial fluid collections. Ventricular system: Ventriculostomy tubing tip terminating near midline. Tubing appears intact. No ev idence of hydrocephalus. The right lateral ventricle is asymmetrically dilated compared to left breas t where the left is somewhat rather slitlike. Cerebral parenchyma: No acute intraparenchymal hemorrhage or mass effect. The caballero-white junction is well differentiated. Cerebellum: Unremarkable. Mass effect: No evidence of midline shift. Intracranial vasculature: unremarkable Soft tissues: Normal. Calvarium/osseous structures: No depressed skull fracture. Ventriculostomy tubing surgical changes. Paranasal sinuses and mastoid air cells: Mild scattered paranasal sinus disease. Visualized orbits: Orbital contents are intact. IMPRESSION: Right lateral frontal approach ventriculostomy tubing placement. No evidence for hydrocephalus. Asym metric right lateral ventricle dilation with compared to the left lateral ventricle which is more sli tlike. This finding along with ventriculostomy tubing is new from prior MRI in 2019.
== END | disposition home or self-care (01) ==
LOC: RADCTMAIN 15:45
PROVIDERS: ATTEND Neurological Surgery
DX: G93.2 Benign intracranial hypertension (principal); Z98.2 Presence of cerebrospinal fluid drainage device
CPT/HCPCS: 70250; 70450; 71046; 74019

== ENCOUNTER → 2023-05-16 | Outpatient (CLI) | payer OTHER ==
--- NOTE | 2023-05-16 16:24 | US ---
EXAMINATION TYPE: US venous doppler duplex LE LT DATE OF EXAM: 05/16/2023 4:15 PM COMPARISON: NONE CLINICAL INDICATION: Female, 37 years old with history of [id number]; Left leg swelling x couple weeks SIDE PERFORMED: Left TECHNIQUE: The lower extremity deep venous system is examined utilizing real time linear array sonog darryl with graded compression, doppler sonography and color-flow sonography. VESSELS IMAGED: Common Femoral Vein Deep Femoral Vein Greater Saphenous Vein * Femoral Vein Popliteal Vein Small Saphenous Vein * Proximal Calf Veins (* superficial vessels) Grayscale, color doppler, spectral doppler imaging performed of the deep veins of the left lower extr emity. There is normal flow, compressibility, vascular waveforms. Left Leg: Appears negative for DVT IMPRESSION: No deep venous thrombosis of the left lower extremity.
== END | disposition home or self-care (01) ==
LOC: RADUSWWP 15:43
PROVIDERS: ATTEND Podiatrist Foot & Ankle Surgery
DX: I82.402 Acute embolism and thrombosis of unspecified deep veins of left lower extremity (principal)

== ENCOUNTER → 2023-10-14 | Outpatient (CLI) | payer OTHER ==
--- NOTE | 2023-10-16 11:35 | CT ---
EXAMINATION TYPE: CT abdomen w con DATE OF EXAM: 10/14/2023 COMPARISON: 10/13/2020 INDICATION: r/o umbilical hernia, pain x 2 month. DLP: 2018.6 mGycm, Automated exposure control for dose reduction was used. CONTRAST: 100 cc mL of Isovue 300. Study performed with Oral Contrast TECHNIQUE: Axial images were obtained from above the diaphragm to the pubic rami in the axial plane a t 5 mm thick sections. Reconstructed images are reviewed on the computer in the coronal plane. FINDINGS: Limited CT sections are obtained the lung bases. The lung bases are clear. CT ABDOMEN: Liver: Normal Spleen: Normal Pancreas: Normal Adrenal glands: The adrenal glands are normal. Gallbladder: Surgically absent Kidneys: No masses are evident. No hydronephrosis is present. No cysts are present. Delayed images were obtained through the kidneys, which remain unremarkable. Aorta: Normal Inferior vena cava: Normal. CT PELVIS upper: A periumbilical hernia is present with the 2.5 cm. This contains mesenteric fat. Ser ies 6 image 66 Anterior to this hernia is area of increased density in the periumbilical region measu ring 4.2 x 2.1 cm, exam limited series 6 image 68. Incarcerated mesenteric fat containing hernia at t he considered. Loops of bowel within the abdomen and pelvis are normal. There are loops of bowel lacking oral co ntrast limiting bowel evaluation. Contrast is predominantly within the proximal small bowel loops. Portion of the uterus visualized may be slightly bulky. There may be a cyst on the right ovary. IMPRESSION: 1. Area of increased density in the periumbilical region could be incarcerated fat.
== END | disposition home or self-care (01) ==
LOC: RADCTMAIN 16:11
PROVIDERS: ATTEND Internal Medicine Gastroenterology
DX: K42.9 Umbilical hernia without obstruction or gangrene (principal)
CPT/HCPCS: 74160; Q9967

== ENCOUNTER → 2023-11-10 | Outpatient (CLI) | payer OTHER ==
[2023-11-10 18:37] LABS: Basophils # (A) 0.05 X 10*3/uL (0.00-0.10); Basophils % (A) 0.6 %; Eosinophils # (A) 0.21 X 10*3/uL (0.04-0.35); Eosinophils % (A) 2.3 %; HCT 44.7 % (37.2-46.3); HGB 14.5 g/dL (12.0-15.0); Lymphocytes # (A) 2.99 X 10*3/uL (0.90-5.00); Lymphocytes % (A) 33.1 %; MCH 28.9 pg (27.0-32.0); MCHC 32.4 g/dL (32.0-37.0); Mean Platelet Volume 10.9 FL (9.5-12.2); Monocytes % (A) 6.6 %; NRBC Per 100 WBC 0 X 10*3/uL (0.00-0.01); Neutrophils # (A) 5.16 X 10*3/uL (1.80-7.70); Neutrophils % (A) 57.1 %; Platelet Count 272 X 10*3/uL (140-440); RBC 5.02 X 10*6/uL (4.10-5.20); RDW 12.3 % (11.5-14.5); WBC 9.04 X 10*3/uL (4.50-10.00)
== END | disposition home or self-care (01) ==
LOC: LABWHC1 13:42
PROVIDERS: ATTEND Surgery
DX: Z01.818 Encounter for other preprocedural examination (principal); K42.9 Umbilical hernia without obstruction or gangrene
CPT/HCPCS: 36415; 85025; 86850; 86900; 86901; 93005

== ENCOUNTER 2023-11-16 05:33 | Day surgery (SDC) | payer OTHER ==
[2023-11-11 11:36] VITALS: BMI 45.9
[~2023-11-16 05:33] MED LIST changes: +ACETAMINOPHEN TAB 500 MG TAB PO PRN; -LACTATED RINGERS 1,000 ML IV SCH
[2023-11-16] MEDS ORDERED: ONDANSETRON 4 MG/2 ML VIAL ONE ×2 (06:54→11:06)
[2023-11-16] MEDS: ONDANSETRON 4 MG/2 ML VIAL IVP ONE ×2 (07:00→11:10)
[2023-11-16] MEDS: MIDAZOLAM 2 MG/2 ML VIAL IVP ONE (07:07)
[2023-11-16] MEDS: fentaNYL (PF) 50 MCG/ML 2 ML AMP IVP ONE (07:07)
[2023-11-16] MEDS ORDERED: droPERidol 5 MG/2 ML VIAL IVP ONE (07:23)
[2023-11-16] MEDS ORDERED: ROPIVACAINE 5 MG/ML 30 ML VIAL ONE (07:24)
[2023-11-16] MEDS ORDERED: LIDOCAINE 2%-EPI 1:100,000 20 ML VIAL ONE (07:24)
[2023-11-16] MEDS ORDERED: HYDROmorphone (PF) 1 MG/ML ONE (07:24)
[2023-11-16] MEDS ORDERED: LIDOCAINE 1% INJ 10MG/ML (20 ML MDV) ONE (07:24)
[2023-11-16] MEDS ORDERED: SUCCINYLCHOLINE CHLORIDE 200 MG/10 ML VIAL IV ONE (07:24)
[2023-11-16] MEDS ORDERED: NEOSTIGMINE 1 MG/ML 10 ML VIAL ONE (07:24)
[2023-11-16] MEDS ORDERED: fentaNYL (PF) 50 MCG/ML 2 ML AMP ONE (07:24)
[2023-11-16] MEDS ORDERED: ROCURONIUM 10 MG/ML (5 ML VIAL) IV ONE (07:24)
[2023-11-16] MEDS ORDERED: GLYCOPYRROLATE 0.2 MG/ML 2 ML VIAL ONE (07:24)
[2023-11-16] MEDS ORDERED: PROPOFOL 10 MG/ML 20 ML VIAL IV ONE (07:24)
[2023-11-16] MEDS: LACTATED RINGERS 1,000 ML IV ONE ×2 (07:28→08:20)
[2023-11-16] MEDS: ceFAZolin 3 GM in SODIUM CHLORIDE 0.9% 100 ML IVPB PRN (07:29)
[2023-11-16] MEDS: HEPARIN SODIUM,PORCINE 5,000 UNIT/ML 1 ML VIAL SQ PRN (07:35)
[2023-11-16] MEDS: LIDOCAINE 0.5%-EPI 1:200,000 50 ML VIAL SQ ONE ×2 (08:01)
--- NOTE | 2023-11-16 08:49 | P.OP ---
Date of Procedure: 11/16/23 Preoperative Diagnosis: Umbilical hernia Postoperative Diagnosis: Incarcerate umbilical hernia Procedure(s) Performed: laparoscopic robotic assisted repair of incarcerated umbilical hernia Partial omentectomy Transverse abdominal plane block Anesthesia: THOR Surgeon: Josemanuel Florez Estimated Blood Loss (ml): 5 Pathology: other (Omentum) Condition: stable Disposition: PACU Description of Procedure: The patient was placed on the operating table in the supine position. He re ceived general anesthesia. His abdomen was prepped and draped usual fashion. Using a 5 mm optical trocar under direct visualization the peritoneal cavity was entered in the left upper quadrant. The abdomen was then insufflated. The laparoscope was placed back into the perineal cavity. Next a 8 mm robotic trocar was placed in the left lower quadrant and a 12 mm robotic trocar was placed in the left lateral position. The original 5 mm trocar was exchanged for a 8 mm robotic trocar. A four-quadrant transversus abdominis plane block was performed 1% local Xylocaine. The patient's placed in the left side up position. And the patient was undocked the robot. The umbilical hernia was visualized. Using hook cautery the peritoneum over the umbilical hernia was excised. Karsh omentum and hernia sac was dissected sent to pathology. The fascial opening was repaired using 0V LOC suture. Next a piece of 11 cm round ventral light ST mesh was placed into the. Cavity and secured with 2 OV lock suture. The patient was undocked the robot. The needles were retrieved. The fascia of the 12 mm trocar site was closed with 0 Ethibond suture. Skin was closed interrupted 3-0 Monocryl suture. Dermabond dressings was applied. Patient t tolerated the procedure well and was sent to recovery room stable condition.
[2023-11-16 09:07] VITALS: TEMP 98.8
[2023-11-16] MEDS: HYDROmorphone 0.5 MG/0.5 ML SYRINGE IVP ONE (09:09)
--- NOTE | 2023-11-16 09:27 | P.ANPRN ---
Procedure Note - Anesthesia - Nerve Block Performed Bilateral Erector Spinae Single Time Out Performed: Yes Date of Procedure: 11/16/23 Procedure Start Time: 07:06 Procedure Stop Time: 07:16 Location of Patient: PreOp Indication: Acute Post-Operative Pain, Requested by Surgeon Sedation Type: Sedate with meaningful contact maintained Preparation: Sterile Prep Position: Prone Needle Types: Pajunk Needle Gauge: 21 Ultrasound used to visualize needle placement: Yes Ultrasound used to observe medication spread: Yes Injectate: 0.5% Ropivacaine (see comment for volume) (20 ml +10 ml Lidocaine 2% with epi 1/200 K per side) Blood Aspirated: No Pain Paresthesia on Injection Noted: No Resistance on Injection: Normal Image Stored and Saved: Yes Events: Uneventful and Well Tolerated
[2023-11-16] MEDS: MEPERIDINE 50 MG/ML SYRINGE IVP ONE (09:36)
[2023-11-16] MEDS: LACTATED RINGERS 1,000 ML IV SCH (10:27)
[2023-11-16 10:42] VITALS: RESP 16
[2023-11-16 12:15] VITALS: BP 142/68; PULSE 70
== END 2023-11-16 12:02 | disposition home or self-care (01) ==
LOC: OR 05:33
PROVIDERS: ATTEND Surgery
DX: K42.0 Umbilical hernia with obstruction, without gangrene (principal); J45.909 Unspecified asthma, uncomplicated; F41.9 Anxiety disorder, unspecified; K21.9 Gastro-esophageal reflux disease without esophagitis; F10.90 Alcohol use, unspecified, uncomplicated; F31.9 Bipolar disorder, unspecified; Z88.0 Allergy status to penicillin; Z88.5 Allergy status to narcotic agent; Z88.8 Allergy status to other drugs, medicaments and biological substances; Z91.030 Bee allergy status; Z79.51 Long term (current) use of inhaled steroids; Z79.899 Other long term (current) drug therapy
CPT/HCPCS: 81025; 64999; 88305; 49592; C1781; J2250; J0330; J1644; J2710; J2175; J0690; J2405; J2001; J3010; J1170 ×2; J2795; J2704

== ENCOUNTER → 2024-04-26 | Outpatient (CLI) | payer OTHER ==
--- NOTE | 2024-04-26 11:10 | US ---
EXAMINATION TYPE: US thyroid st tissue head/neck DATE OF EXAM: 04/26/2024 COMPARISON: NONE CLINICAL INDICATION: Female, 38 years old with history of E03.9 HYPOTHYROIDISM; hypo, on meds for yea rs, hoarse throat GLAND SIZE: Right Lobe: 2.3 x 1.0 x 0.8 cm Overall Parenchyma: heterogeneous Left Lobe: 1.8 x 0.6 x 0.5 cm Overall Parenchyma: heterogeneous Isthmus Thickness: 0.2 cm NODULES RIGHT: # of nodules measured on right: 1 1. 1.5 X 0.8 x 0.7 cm, lower, cystic or almost completely cystic, anechoic nodule, which is wider t arroyo tall, with smooth margins, without echogenic foci. Prior size: 1.1 x 0.9 x 0.6 cm LEFT: # of nodules measured on left: 1 1. 0.8 X 0.4 x 0.4 cm, upper, cystic or almost completely cystic, anechoic nodule, which is wider th an tall, with smooth margins, without echogenic foci. Prior size: 0.4 x 0.3 x 0.4 cm ISTHMUS: # of nodules measured in the isthmus: 0 Bilateral neck scanned, no evidence of lymphadenopathy. IMPRESSION: Stable benign-appearing nodularity. 2017 ACR TI-RADS LEVEL: *Highest TI-RADS level nodule reported
== END | disposition home or self-care (01) ==
LOC: RADUSWWP 10:10
PROVIDERS: ATTEND Family Medicine
DX: E04.1 Nontoxic single thyroid nodule (principal); E03.9 Hypothyroidism, unspecified
CPT/HCPCS: 76536

== ENCOUNTER → 2024-06-06 | Outpatient (CLI) | payer OTHER ==
--- NOTE | 2024-06-09 09:55 | US ---
EXAMINATION TYPE: US thyroid st tissue head/neck DATE OF EXAM: 06/06/2024 COMPARISON: 04/26/2024 CLINICAL INDICATION: Female, 38 years old with history of M54.2 Cervicalgia; GLAND SIZE: Right Lobe: 2.1 x 0.4 x 0.7 cm Overall Parenchyma: homogeneous Left Lobe: 1.8 x 0.6 x 1.0 cm Overall Parenchyma: homogeneous Isthmus Thickness: NA cm NODULES RIGHT: # of nodules measured on right: 0 ? Hypoechoic vs cystic area superior to thyroid = 1.5 x 0.6 x 1.2 cm LEFT: # of nodules measured on left: 0 ? Hypoechoic vs cystic area superior to thyroid = 0.8 x 0.3 x 0.6 cm ISTHMUS: # of nodules measured in the isthmus: 0 Bilateral neck scanned No lymphadenopathy right lateral neck Lymph node noted left lateral neck = 2.9 x 0.7 x 1.3 cm IMPRESSION: 1. No thyroid nodules. 2. Hypoechoic area seen within the neck bilaterally given images provided by assistant tennis coach. Findings c ould represent lymph nodes but these are solid. If these are cystic these could represent a thyroglos barbara duct or brachial cleft cyst. Further evaluation with MRI neck with IV contrast may be of benefit.
== END | disposition home or self-care (01) ==
LOC: RADUSWWP 15:31
PROVIDERS: ATTEND Internal Medicine
DX: M54.2 Cervicalgia (principal)
CPT/HCPCS: 76536

== ENCOUNTER 2024-09-16 20:00 | Outpatient (CLI) | payer OTHER ==
--- NOTE | 2024-09-21 18:56 | P.PCN ---
Date of Procedure: 09/16/24 Operative Findings: Polysomnography report Date of service is 09/16/2024 History This is a 39-year-old female patient with history of chronic asthmatic bronchitis, who is currently being evaluated for sleep apnea. The patient reported chronic sleep-related problems. She did have a component of delayed sleep phase syndrome as the patient was going to bed at around 3 AM and she was getting out of bed later on during the day. She is currently sleeping around 6 to 7 hours a day. She is obese and she has a body mass index of 48. She also has loud snoring and witnessed apneas. She suffers from chronic anxiety/depression/bipolar disorder/PTSD. She also has hypertension and hypothyroidism. She smokes cannabis daily. Pertinent physical findings The weight is 293 pounds and the height is 5 feet and 5 inches and a body mass index is 48.8 Technical description The patient was studied using a standard complex polysomnography protocol that included recording of the Lead II EKG, Central, occipital and frontal EEG, right and left outer canthus EOG, submental EMG, right and left anterior tibialis EMG, respiratory airflow by thermocouple and or pressure/flow transducer, respiratory efforts by abdominal and thoracic PVDF belts, oxygen saturation by cable oximetry. Position by observation synchronized the PSG. Equipment used: [employer]. Sleep architecture The total recording duration was 397.5 minutes. The total sleep time was 280.9 minutes. The overall sleep latency was Rated to be at 70.6%. Latency to sleep onset was 34 minutes. Latency to REM sleep was 149.0 minutes. Sleep architecture was characterized by 2.9% stage I, 67.6% stage II, 16.8% stage III and a total of 13.4% REM sleep. The total arousal index was 10.1. The wake after sleep onset time was 82 minutes. Respiratory analysis The sleep study showed a total of 48 obstructive events of which 0 were obstru ctive apneas, 1 was mixed apnea and 47 obstructive hypopneas resulting apnea- hypopnea index was 8.6. Noted disease was essentially worse during REM sleep with an AHI of 16 during REM. No central apneas were noted Oxygenation analysis The baseline pulse ox while awake was 95%. Lowest oxygen saturation during sleep study was 85%. Minimum pulse ox during REM sleep was 87%. The patient spent approximately 0.1% of the recording time below pulse ox of 89%. Noted the patient was able to maintain oxygen saturation above 89% throughout the sleep study. Arousal events A total of 47 arousals events with an index of 10.1. Respiratory arousal index was 1.3 Regular movement summary A total of 160 periodically movement activity with an index of 34.2. There was a total of 7 periodic limb movement activity with arousals with an index of 1.5. Cardiac summary Average heart rate was 72 with a minimum heart rate of 67 and a maximum heart of 77 Assessment Mild obstructive sleep apnea with an AHI of 8.6, worse during REM sleep. No significant nocturnal oxygen desaturation and the patient was able to maintain an oxygen saturation above 90%. Periodic limb movements, not associated with arousals. Delayed sleep onset with an overall sleep efficiency of 70% Adequate sleep architecture Delayed sleep phase syndrome Obesity with a BMI of 48 Chronic asthmatic bronchitis Chronic anxiety/depression/bipolar disorder Chronic back pain Acid reflux Panic disorder Hypothyroidism Hyperlipidemia Plan Will work on optimizing the patient's sleep hygiene measures. The patient obviously has a component of delayed sleep phase syndrome that needs to be regulated by adjusting his sleep schedule. In regards to obstructive sleep apnea, this is a mild disease and associated with mild sleep fragmentation. No significant nocturnal oxygen desaturation. Will emphasize on losing weight and implementing good sleep hygiene measures. No need for CPAP therapy at this point in time. Will continue monitoring this patient very closely and make further recommendations based on her progress.
== END 2024-09-17 05:55 | disposition home or self-care (01) ==
LOC: 3 N SLEEP 20:00
PROVIDERS: ATTEND Internal Medicine Critical Care Medicine
DX: G47.33 Obstructive sleep apnea (adult) (pediatric) (principal); G47.52 REM sleep behavior disorder; G47.61 Periodic limb movement disorder; E66.9 Obesity, unspecified; J44.89 Other specified chronic obstructive pulmonary disease; F31.9 Bipolar disorder, unspecified; K21.9 Gastro-esophageal reflux disease without esophagitis; F41.0 Panic disorder [episodic paroxysmal anxiety]; G89.29 Other chronic pain; M54.9 Dorsalgia, unspecified; E03.9 Hypothyroidism, unspecified; E78.5 Hyperlipidemia, unspecified; F17.200 Nicotine dependence, unspecified, uncomplicated; F12.90 Cannabis use, unspecified, uncomplicated; F43.10 Post-traumatic stress disorder, unspecified; I10 Essential (primary) hypertension; Z68.42 Body mass index [BMI] 45.0-49.9, adult; Z91.030 Bee allergy status; Z88.8 Allergy status to other drugs, medicaments and biological substances; Z88.0 Allergy status to penicillin; Z79.890 Hormone replacement therapy; Z79.899 Other long term (current) drug therapy; Z79.51 Long term (current) use of inhaled steroids
CPT/HCPCS: 95810

== ENCOUNTER 2024-10-25 16:55 | Emergency (ER) | payer OTHER ==
--- NOTE | 2024-10-25 17:10 | ED ---
Lower Extremity Injury HPI - General Chief Complaint: Extremity Injury, Lower Stated Complaint: ankle pain Time Seen by Provider: 10/25/24 17:09 Source: patient, RN notes reviewed Mode of arrival: wheelchair Limitations: no limitations - History of Present Illness Initial Comments: 39-year-old female presenting for right ankle injury x 3 days ago. States she was laying down when her dog jumped up and landed on the medial aspect of her right ankle. States she felt immediate pain when this happened and has had pain with ambulation since. States her dog is large in size. Denies other injuries. - Related Data Home Medications Medication Instructions Recorded Confirmed Albuterol Nebulized [Ventolin 2.5 mg INHALATION TID 03/06/20 11/16/23 Nebulized] Fluticasone Propionate 220 Mcg 2 puff INHALATION BID 10/18/22 11/16/23 [Flovent 220 Mcg Inhaler] Levothyroxine Sodium [Synthroid] 200 mcg PO MOTUWETHFR 10/18/22 11/16/23 Montelukast Sodium [Singulair] 10 mg PO DAILY 10/22/22 11/16/23 busPIRone HCL [Buspirone HCl] 10 mg PO DAILY 11/10/22 11/16/23 Dicyclomine [Bentyl] 20 mg PO QID 11/11/23 11/16/23 Fluticasone Propion/Salmeterol 1 inhalation PO BID 11/11/23 11/16/23 [Advair 100-50 Diskus] Ib Guard 1 cap PO BID PRN 11/11/23 11/16/23 Levothyroxine Sodium [Synthroid] 300 mcg PO SUSA 11/11/23 11/16/23 Meloxicam [Mobic] 7.5 mg PO DAILY 11/11/23 11/16/23 Omeprazole [PriLOSEC] 20 mg PO AC-BRKFST 11/11/23 11/16/23 Previous Rx's Medication Instructions Recorded Acetaminophen Tab [Tylenol] 650 mg PO Q6H #30 tab 11/16/23 oxyCODONE HCL [OxyIR] 5 mg PO Q6H PRN 3 Days #20 tab 11/16/23 Allergies Allergy/AdvReac Type Severity Reaction Status Date / Time bee venom protein (honey bee) Allergy Dyspnea Verified 10/25/24 16:57 hydrocortisone Allergy Rash/Hives Verified 10/25/24 16:57 Penicillins Allergy Rash/Hives Verified 10/25/24 16:57 cortisone AdvReac SEVERE Verified 10/25/24 16:57 ABDOMINAL PAIN Review of Systems ROS Statement: Those systems with pertinent positive or pertinent negative responses have been documented in the HPI. ROS Other: All systems not noted in ROS Statement are negative. 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 Irregular heartbeat. shunt in her head History of Any Multi-Drug Resistant Organisms: None Reported Past Surgical History: Breast Surgery, Cholecystectomy Additional Past Surgical History / Comment(s): Breast reduction, eye surgery - sheaths placed bilaterally. Past Anesthesia/Blood Transfusion Reactions: Motion Sickness Past Psychological History: Anxiety, Bipolar, Depression, PTSD Smoking Status: Former smoker Past Alcohol Use History: None Reported Past Drug Use History: Marijuana - Past Family History Sister(s) Family Medical History: Cancer General Exam Limitations: no limitations General appearance: alert, in no apparent distress Head exam: Present: atraumatic, normocephalic, normal inspection Right Lower Leg exam: Present: normal inspection, full ROM. Absent: tenderness, swelling Ankle exam: Present: full ROM, tenderness (Tenderness along medial malleolus of right ankle with mild edema), swelling. Absent: normal inspection, laceration, deformity, dislocation, erythema Foot/Toe exam: Present: normal inspection, full ROM. Absent: tenderness, swelling Neurovascular tendon exam: Present: no vascular compromise. Absent: pulse deficit, abnormal cap refill, sensory deficit Neurological exam: Present: alert, oriented X3 Psychiatric exam: Present: normal affect, normal mood Skin exam: Present: warm, dry, intact, normal color. Absent: rash Course Vital Signs 10/25/24 16:57 Temperature 97.8 F Pulse Rate 78 Respiratory 20 Rate Blood Pressure 123/72 O2 Sat by Pulse 99 Oximetry Medical Decision Making - Medical Decision Making Was pt. sent in by a medical professional or institution (, PA, AGRONOMY SUPERVISOR, urgent care, hospital, or fdc...) When possible be specific @ -No Did you speak to anyone other than the patient for history (EMS, parent, family, police, friend...)? What history was obtained from this source @ -No Did you review nursing and triage notes (agree or disagree)? Why? @ -I reviewed and agree with nursing and triage notes Were old charts reviewed (outside hosp., previous admission, EMS record, old EKG, old radiological studies, urgent care reports/EKG's, fdc records)? Report findings @ -No old charts were reviewed Differential Diagnosis (chest pain, altered mental status, abdominal pain women, abdominal pain men, vaginal bleeding, weakness, fever, dyspnea, syncope, headache, dizziness, GI bleed, back pain, seizure, CVA, palpatations, mental health, musculoskeletal)? @ -Differential Musculoskeletal Muscular strain, contusion, ligament sprain, fracture, arthritis, septic arthritis, bursitis, cellulitis, muscle spasm, nerve compression, DVT, arterial occlusion, herpes zoster, electrolyte abnormality, tumor.... This is not meant to be in all inclusive list EKG interpreted by me (3pts min.). @ -None X-rays interpreted by me (1pt min.). @ -X-ray right ankle reveals no acute process CT interpreted by me (1pt min.). @ -None done U/S interpreted by me (1pt. min.). @ -None done What testing was considered but not performed or refused? (CT, X-rays, U/S, labs)? Why? @ -None What meds were considered but not given or refused? Why? @ -None Did you discuss the management of the patient with other professionals (professionals i.e. , PA, AGRONOMY SUPERVISOR, lab, RT, psych nurse, dialysis social worker, multicultural internship, teacher, patrol community service officer, caser in)? Give summary @ -No Was smoking cessation discussed for >3mins.? @ -No Was critical care preformed (if so, how long)? @ -No Were there social determinants of health that impacted care today? How? (Homelessness, low income, unemployed, alcoholism, drug addiction, transportation, low edu. Level, literacy, decrease access to med. care, detention, rehab)? @ -No Was there de-escalation of care discussed even if they declined (Discuss DNR or withdrawal of care, Hospice)? DNR status @ -No What co-morbidities impacted this encounter? (DM, HTN, Smoking, COPD, CAD, Cancer, CVA, ARF, Chemo, Hep., AIDS, mental health diagnosis, sleep apnea, morbid obesity)? @ -None Was patient admitted / discharged? Hospital course, mention meds given and route, prescriptions, significant lab abnormalities, going to OR and other pertinent info. @ -Discharge. 39-year-old female with right ankle injury 3 days ago. She is able to ambulate. Neurovascularly intact. X-ray reveals no acute process. Results discussed with patient. Discussed diagnosis of right ankle sprain. Appropriate return precautions as well as supportive care discussed. Case was discussed with my ED attending Dr. Araujo. Undiagnosed new problem with uncertain prognosis? @ -No Drug Therapy requiring intensive monitoring for toxicity (Heparin, Nitro, Insulin, Cardizem)? @ -No Were any procedures done? @ -No Diagnosis/symptom? @ -Right ankle sprain Acute, or Chronic, or Acute on Chronic? @ -Acute Uncomplicated (without systemic symptoms) or Complicated (systemic symptoms)? @ -Uncomplicated Side effects of treatment? @ -No Exacerbation, Progression, or Severe Exacerbation? @ -No Poses a threat to life or bodily function? How? (Chest pain, [place], [place], pneumonia, PE, COPD, DKA, ARF, appy, cholecystitis, CVA, Diverticulitis, Homicidal, Suicidal, threat to staff... and all critical care pts) @ -No Disposition Clinical Impression: Right ankle sprain Disposition: HOME SELF-CARE Condition: Stable Instructions (If sedation given, give patient instructions): Ankle Sprain (ED) Additional Instructions: Rest, elevate, and ice the right ankle. Please return to the Emergency Department if symptoms worsen or any other concerns. Is patient prescribed a controlled substance at d/c from ED?: No Referrals: Noris Tuttle MD [Primary Care Provider] - 1-2 days Time of Disposition: 18:06
--- NOTE | 2024-10-25 17:29 | XR ---
EXAMINATION TYPE: XR ankle complete RT DATE OF EXAM: 10/25/2024 5:25 PM COMPARISON: 11/25/2017 CLINICAL INDICATION: Female, 39 years old with history of right ankle injury, pain TECHNIQUE: 3 view(s) obtained. FINDINGS: Ankle mortise is intact. Plantar calcaneal heel spur is present. No acute fracture or dislocation walter dent. Soft tissues are normal.. Follow up exams can be performed 7-10 days from acute trauma for cont inued pain. IMPRESSION: 1. No acute osseous abnormality right ankle. [facility], Workstation: [facility], 10/25/2024 5:27 PM
[2024-10-25 18:33] VITALS: BP 121/70; PULSE 76; RESP 18; TEMP 98
== END 2024-10-25 18:30 | disposition home or self-care (01) ==
LOC: EC 16:55
DX: S93.401A Sprain of unspecified ligament of right ankle, initial encounter (principal); Z91.030 Bee allergy status; Z88.8 Allergy status to other drugs, medicaments and biological substances; Z88.0 Allergy status to penicillin; Z87.891 Personal history of nicotine dependence; X58.XXXA Exposure to other specified factors, initial encounter
CPT/HCPCS: 99283

== ENCOUNTER 2025-01-07 19:47 | Outpatient (CLI) | payer OTHER ==
--- NOTE | 2025-01-16 22:12 | P.PCN ---
Date of Procedure: 01/07/25 Operative Findings: CPAP titration report Date of service is 01/07/2025 History This is a 39-year-old female patient with history of chronic asthmatic bronchitis, who is currently being evaluated for sleep apnea. The patient reported chronic sleep-related problems. She did have a component of delayed s leep phase syndrome as the patient was going to bed at around 3 AM and she was getting out of bed later on during the day. She is currently sleeping around 6 to 7 hours a day. She is obese and she has a body mass index of 48. She also has loud snoring and witnessed apneas. She suffers from chronic anxiety/depression/bipolar disorder/PTSD. She also has hypertension and hypothyroidism. She smokes cannabis daily. The patient underwent a home sleep study and the patient was found to have mild PAVEL with an AHI of 8. 6. No significant nocturnal oxygen desaturations. The patient had periodic limb movement activity and associated with significant arousals. His overall sleep efficiency was 70% and he had a delayed sleep onset. I had a length discussion with the patient was done in the presence of her significant other in the office. She showed interest in CPAP therapy. I was more inclined of starting her on some conservative measures including weight loss and implementing good sleep hygiene measures and work on her sleep schedule. The patient was very much interested in CPAP therapy and she wanted to work on her sleep schedule and hygiene measures in conjunction with CPAP therapy. Based on that, CPAP titration was ordered for this patient. Pertinent physical findings The weight is 293 pounds and the height is 5 feet and 5 inches and a body mass index is 48.8 Technical description The patient was studied using a standard complex polysomnography protocol that included recording of the Lead II EKG, Central, occipital and frontal EEG, right and left outer canthus EOG, submental EMG, right and left anterior tibialis EMG, respiratory airflow by thermocouple and or pressure/flow transducer, respiratory efforts by abdominal and thoracic PVDF belts, oxygen saturation by cable oximetry. Position by observation synchronized the PSG. Equipment used: [employer]. Stepwise CPAP titration was done to eliminate all obstructive respiratory events Sleep architecture The patient had a total recording duration of 375.5 minutes. The total sleep time was 287.5 minutes. The latency to sleep onset was 46.5 minutes and the latency to REM sleep was 112.5 minutes. The overall sleep efficiency was 76.6%. The sleep architecture was characterized by 3% stage I, 86.8% stage II, 0% stage III and a total of 13.4% REM sleep. The total arousal index was 2.7. Respiratory analysis CPAP titration was performed initially starting with a CPAP pressure of 4 cm of water and the pressure was gradually increased. CPAP pressure of 14. This was a successful CPAP titration. There was complete remission of the obstructive respiratory events in the very sleep stages and body positions. No oxygen desaturations were encountered. Arousal events summary There was a total of 13 arousals throughout the sleep study with an index of 2.7. The respiratory arousal index was 0 Periodic movement activity No significant periodic limb movement activity was noted Cardiac summary Average heart rate was 71 with a minimum heart rate of 65 and a maximum heart rate of 77 Assessment Mild obstructive sleep apnea with an AHI of 8.6, worse during REM sleep. The patient underwent a successful CPAP titration. No significant periodic limb movement activity was noted during this current sleep study/titration Overall sleep efficiency was still 48 improved compared to her 0 point sonogra phy and this was calculated to be at 76% Adequate sleep architecture Delayed sleep phase syndrome Obesity with a BMI of 48 Chronic asthmatic bronchitis Chronic anxiety/depression/bipolar disorder Chronic back pain Acid reflux Panic disorder Hypothyroidism Hyperlipidemia Plan Initiate CPAP therapy at a pressure of 7 cm of water with C-Flex of 3. Patient will be also provided a AirFit P10 small size nasal pillows. Will work on optimizing the patient's sleep hygiene measures. The patient has a component of delayed sleep phase syndrome that needs to be regulated by adjusting his sleep schedule. Will emphasize on losing weight and implementing good sleep hygiene measures. Will continue monitoring this patient very closely and make further recommendations based on her progress. The patient was seen back in the office in 30 to 90 days to assess need response and compliancy.
== END 2025-01-08 05:30 | disposition home or self-care (01) ==
LOC: 3 N SLEEP 19:47
PROVIDERS: ATTEND Internal Medicine Critical Care Medicine
DX: G47.33 Obstructive sleep apnea (adult) (pediatric) (principal); J44.89 Other specified chronic obstructive pulmonary disease; G89.29 Other chronic pain; K21.9 Gastro-esophageal reflux disease without esophagitis; F41.0 Panic disorder [episodic paroxysmal anxiety]; F41.9 Anxiety disorder, unspecified; E03.9 Hypothyroidism, unspecified; E78.5 Hyperlipidemia, unspecified; E66.9 Obesity, unspecified; Z68.42 Body mass index [BMI] 45.0-49.9, adult; F31.9 Bipolar disorder, unspecified; Z99.89 Dependence on other enabling machines and devices; Z88.0 Allergy status to penicillin; Z88.8 Allergy status to other drugs, medicaments and biological substances; Z91.030 Bee allergy status; Z87.891 Personal history of nicotine dependence
CPT/HCPCS: 95811

== ENCOUNTER → 2025-04-09 | Outpatient (CLI) | payer OTHER ==
--- NOTE | 2025-04-10 07:18 | MM ---
Reason for Exam: Screening (asymptomatic). Baseline mammogram. Patient History: Menarche at age 11. Patient has no children. 02/14/1998, Bilateral Reduction. Last menstrual period: 03/20/2025 Risk Values: Deepa 5 year model risk: 0.7%. NCI Lifetime model risk: 11.0%. Prior Study Comparison: Patient's first Mammogram. Tissue Density: There are scattered areas of fibroglandular density. Findings: Analyzed By CAD. There are regional tiny benign-appearing round Calcifications bilaterally. There is no suspicious group of microcalcifications or suspicious mass in either breast. Overall Assessment: Benign, BI-RAD 2 Management: Screening Mammogram of both breasts in 1 year. . Patient should continue monthly self-breast exams. A clinical breast exam by your physician is recommended on an annual basis. This exam should not preclude additional follow-up of suspicious palpable abnormalities. Note on Deepa scores and lifetime risk: 1. A Deepa score greater than 3% is considered moderate risk. If this is the case, consider specialist referral to assess eligibility for a risk reducing agent. 2. If overall lifetime risk for the development of breast cancer is 20% or higher, the patient may qualify for future screening with alternating mammogram and breast MRI. [facility], , 04/10/2025 7:15 AM. Electronically signed and approved by: Charan Flowers M.D.
== END | disposition home or self-care (01) ==
LOC: RADMAMWWP 15:29
PROVIDERS: ATTEND Family Medicine
DX: Z12.31 Encounter for screening mammogram for malignant neoplasm of breast (principal); R92.323 Mammographic fibroglandular density, bilateral breasts
CPT/HCPCS: 77063; 77067